=== PATIENT | female | born 1985 | race Caucasian/White ===

== ENCOUNTER 2016-05-10 18:54 | Emergency (ER) ==
[2016-05-10 18:59] VITALS: BP 125/79; TEMP 96.6; BMI 26.6
[2016-05-10 19:25] LABS: BASOPHILS # (AUTO) 0.1 K/uL (0-0.2); EOSINOPHILS % (AUTO) 0.2 % (0.0-7.0); HEMATOCRIT 40.3 % (37.0-47.0); HEMOGLOBIN 14.2 g/dl (12.0-16.0); IMMATURE GRANULOCYTE % (AUTO) 0.2 % (0.0-5.0); LYMPHOCYTES # (AUTO) 1.2 K/uL (0.60-3.4); LYMPHOCYTES % (AUTO) 21.9 (10.0-50.0); MEAN CORPUSCULAR HEMOGLOBIN 32.4 pg (27.0-31.0); MEAN CORPUSCULAR HGB CONC 35.2 (31.8-35.4); MONOCYTES # (AUTO) 0.3 K/uL (0.4-2.0); MONOCYTES % (AUTO) 6.1 (0-10); NEUTROPHILS # (AUTO) 3.7 K/ul (2.0-6.9); NEUTROPHILS % (AUTO) 70.6; PLATELET COUNT 352 10^3/uL (140-440); RED BLOOD COUNT 4.38 10^6/ul (4.20-5.40); WHITE BLOOD COUNT 5.25 K/ul (4.6-10.2)
[2016-05-10 19:28] LABS: BILIRUBIN,URINE Negative (NEGATIVE); KETONES,URINE 3+ (NEGATIVE); LEUKOCYTE ESTERASE ,URINE Negative (NEGATIVE); NITRITE,URINE Negative (NEGATIVE); PROTEIN,URINE Negative (NEGATIVE); URINE, BLOOD Negative (NEGATIVE)
[2016-05-10 19:33] LABS: ADD URINE MICROSCOPIC NO; URINE PREGNANCY INTERNAL QC INTERNAL QC VALID
[2016-05-10 19:46] LABS: ALBUMIN 4.4 g/dL (3.4-5.0); ALBUMIN/GLOBULIN RATIO 1.16; ANION GAP 17.5; BILIRUBIN,TOTAL 0.72 mg/dL (0.00-1.20); BUN/CREATININE RATIO 6.73; CALCIUM 9.6 mg/dL (8.2-10.2); CREATININE 1.04 mg/dL (0.60-1.30); POTASSIUM 3.5 mmol/L (3.5-5.10); TOTAL PROTEIN 8.2 g/dL (6.4-8.2)
[2016-05-10 19:46] LABS: FLU INTERNAL QC INTERNAL QC VALID; RAPID FLU A NEGATIVE (NEGATIVE); RAPID FLU B NEGATIVE (NEGATIVE)
--- NOTE | 2016-05-10 20:05 | ED.PDOC ---
General ED Provider: Dr. ALIYAH HELTON-ER Chief Complaint: Non-specific Complaint Stated Complaint: nichole got chills and shaky Time Seen by Physician: 18:55 Mode of Arrival: Walk-In Information Source: Patient Exam Limitations: No limitations Primary Care Provider: AVNI VARGAS Nursing and Triage Documentation Reviewed and Agree: Yes Miscellaneous Complaint Exam - Febrile Illness/Adult Complaint/Exam Onset/Duration: a few hours Symptoms Are: Still present Timing: Intermittent Episodes Lasting: Minutes Initial Severity: Mild Current Severity: Mild Aggravating: Reports: None Alleviating: Reports: None Associated Signs and Symptoms: Reports: Chills Pseudomonas Risk Factors: Reports: None Serious Bacterial Infection Risk Factors: Reports: None Current Antibiotic Use: No Related Surgical History: None Differential Diagnoses: Fever of Unknown Origin, Pneumonia, Pyelonephritis, Viremia Review of Systems - Review Of Systems Constitutional: Reports: Chills, Fever Eyes: Reports: No symptoms Ears, Nose, Mouth, Throat: Reports: No symptoms Respiratory: Reports: No symptoms Cardiac: Reports: No symptoms GI: Reports: No symptoms : Reports: No symptoms Musculoskeletal: Reports: No symptoms Skin: Reports: No symptoms Neurological: Reports: No symptoms Endocrine: Reports: No symptoms Hematologic/Lymphatic: Reports: No symptoms All Other Systems: Reviewed and Negative Past Medical History - Past Medical History Previously Healthy: Yes Endocrine: Reports: DM 1, Hypothyroid, Dyslipidemia Cardiovascular: Reports: None Respiratory: Reports: None Hematological: Reports: None Gastrointestinal: Reports: None Genitourinary: Reports: None Neuro/Psych: Reports: Migraine Musculoskeletal: Reports: Back Pain Cancer: Reports: None Last Menstrual Period: Apr Other Pertinent Past Medical History: BRAIN CYST- NO SURGERY"ITS TOO DANGEROUS( CT report-arachnoid cyst=benign) - Surgical History General Surgical History: Reports: Back Surgery, Other (BRAIN CYST- NO SURGERY "ITS TOO DANGEROUS(CT report-arachnoid cyst=benign)) - Family History Family History: Reports: Unknown - Social History Smoking Status: Current every day smoker, Light tobacco smoker Hx Substance Use: No Alcohol Screening: None Lives: With family Physical Exam - Physical Exam Appearance: Well-appearing, No pain distress, Well-nourished Eyes: ROXI ENT: Ears normal, Nose normal, Oropharynx normal Respiratory: Airway patent, Breath sounds clear, Breath sounds equal, Respirations nonlabored Cardiovascular: RRR, Pulses normal, No rub, No murmur GI/: Soft, Nontender, No masses, Bowel sounds normal, No Organomegaly Musculoskeletal: Normal strength, ROM intact, No edema, No calf tenderness Skin: Warm, Dry, Normal color Neurological: Sensation intact, Motor intact, Reflexes intact, Cranial nerves intact, Alert, Oriented Psychiatric: Affect appropriate, Mood appropriate Interpretation - Radiology Interpretation Radiology Interpretation By: ED Physician Radiology Results: Negative Exam Interpreted: CXR Re-Evaluation - Re-Evaluation Time of Re-Evaluation: 20:30 Status: Improved (laughing and joking--not ill appearing) Vital Signs Stable: Yes Pain Level: 0 Appearance: NAD Lungs: Clear Skin: Warm and Dry Neuro: Alert and Oriented X3 CV: RRR Critical Care Note - Critical Care Note Total Time (mins): 0 Course - Course Hematology/Chemistry: 05/10/16 19:15 05/10/16 19:15 Orders, Labs, Meds: Lab Review 05/10/16 05/10/16 19:15 19:20 WBC 5.25 RBC 4.38 Hgb 14.2 Hct 40.3 MCV 92.0 MCH 32.4 H MCHC 35.2 RDW Coeff of Kurt 12.7 Plt Count 352 Immature Gran % (Auto) 0.2 Neut % (Auto) 70.6 Lymph % (Auto) 21.9 Wheeler % (Auto) 6.1 Eos % (Auto) 0.2 Baso % (Auto) 1.0 Immature Gran # (Auto) 0.0 Neut # 3.7 Lymph # 1.2 Wheeler # 0.3 L Eos # 0.0 Baso # 0.1 Sodium 136 Potassium 3.5 Chloride 100 Carbon Dioxide 22 Anion Gap 17.5 BUN 7 Creatinine 1.04 Estimated GFR (MDRD) 63.00 BUN/Creatinine Ratio 6.73 Glucose 254 H Calcium 9.6 Total Bilirubin 0.72 AST 11 L ALT 12 Alkaline Phosphatase 60 Total Creatine Kinase 47 Troponin I 0.0100 Total Protein 8.2 Albumin 4.4 Globulin 3.8 Albumin/Globulin Ratio 1.16 Urine Color Yellow Urine Clarity Clear Urine pH 5.0 Ur Specific [place] 1.010 Urine Protein Negative Urine Glucose (UA) 2+ Urine Ketones 3+ Urine Blood Negative Urine Nitrite Negative Urine Bilirubin Negative Urine Urobilinogen 0.2 Ur Leukocyte Esterase Negative Urine Test Negative Influenza A (Rapid) Negative Influenza B (Rapid) Negative Orders Category Date Time Status EKG-(ED ONLY) Stat CARDIO 05/10/16 20:07 Completed ACCUCHECK (ED) [ED ACCUCHECK ASSESSMENT] .ONCE EMERGENCY 05/10/16 19:00 Active BLOOD CULTURE Stat LAB 05/10/16 19:15 Received CBC W/ AUTO DIFF Stat LAB 05/10/16 19:15 Completed COMPREHENSIVE METABOLIC PANEL Stat LAB 05/10/16 19:15 Completed CREATINE KINASE Stat LAB 05/10/16 19:15 Completed MOLECULAR GROUP A STREP Stat LAB 05/10/16 19:20 Results RAPID FLU A/B Stat LAB 05/10/16 19:20 Completed STREP SCREEN Stat LAB 05/10/16 19:20 Results TROPONIN I Stat LAB 05/10/16 19:15 Completed URINALYSIS C & S IF INDICATED Stat LAB 05/10/16 19:15 Completed URINE Stat LAB 05/10/16 19:15 Completed CXR [CHEST, 2 VIEWS PA & LAT] Stat RADS 05/10/16 19:03 Taken Vital Signs: Temp Pulse Resp BP Pulse Ox 05/10/16 18:55 96.6 F L 111 H 24 125/79 99 Departure - Departure Time of Disposition: 20:30 Disposition: HOME SELF-CARE Discharge Problem: Fatigue Qualifiers: Fatigue type: other Qualifier Code: (R53.83) Other fatigue Instructions: Weakness (ED) Condition: Good Pt referred to PMD for follow-up: Yes Additional Instructions: rest, fluids, tylenol for chills--rechekc in 48hrsd if not better Allergies/Adverse Reactions: Allergies amoxicillin [Amoxicillin] Adverse Reaction (Verified 04/02/16 21:07) amoxicillin trihydrate [From Augmentin] Adverse Reaction (Verified 04/02/16 21: 07) cyclobenzaprine [From Flexeril] Adverse Reaction (Verified 05/10/16 19:00) diazepam [From Valium] Adverse Reaction (Verified 05/10/16 19:00) Penicillins Adverse Reaction (Verified 04/02/16 21:07) potassium clavulanate [From Augmentin] Adverse Reaction (Verified 04/02/16 21:07 ) tramadol Adverse Reaction (Verified 05/10/16 19:00) Home Medications: Ambulatory Orders Insulin Glargine,Hum.rec.anlog [Lantus] 40 unit SQ DAILY 10/04/12 Insulin Lispro [Humalog] 1 unit SQ DIRECTED PRN 11/24/12 Levothyroxine Sodium [Synthroid] 88 mcg PO DAILY 06/11/13 Pravastatin Sodium [Pravachol] 40 mg PO BEDTIME 10/02/13 Disposition Discussed With: Patient
[2016-05-10 20:23] LABS: TROPONIN I 0.01 ng/ml (0.0000-0.4000)
--- NOTE | 2016-05-11 07:31 | DI ---
EXAM: PA and lateral views of the chest HISTORY: Chills COMPARISON: Chest x-ray 09/10/2015 FINDINGS: The cardiomediastinal silhouette is normal. There is no pneumothorax or pleural effusion . There is no consolidation, nodule or mass. The osseous structures are unremarkable. IMPRESSION: No acute cardiopulmonary process
== END 2016-05-10 20:34 | disposition home or self-care (01) ==
LOC: ED 18:54
DX: R53.83 Other fatigue (principal); R68.83 Chills (without fever); F17.210 Nicotine dependence, cigarettes, uncomplicated; Z79.899 Other long term (current) drug therapy; E10.9 Type 1 diabetes mellitus without complications; E03.9 Hypothyroidism, unspecified; E78.5 Hyperlipidemia, unspecified
CPT/HCPCS: 36415; 80053; 81001; 81025; 82550; 82962; 84484; 85025; 87040; 87651; 87804; 87880; 93005; 93010; 99283

== ENCOUNTER 2016-05-26 11:49 | Outpatient (CLI) ==
[2012-10-04 20:10] VITALS: BP 123/86; TEMP 98
[2016-05-26 12:31] LABS: CREATININE 1.21 mg/dL (0.60-1.30)
== END 2016-05-26 11:50 | disposition home or self-care (01) ==
LOC: LAB 11:49
PROVIDERS: ATTEND Physician Assistant
DX: Z01.818 Encounter for other preprocedural examination (principal)
CPT/HCPCS: 36415; 82565

== ENCOUNTER 2016-05-28 10:14 | Emergency (ER) ==
[2016-05-28 10:18] VITALS: BP 127/82; TEMP 98.6; BMI 22.9
--- NOTE | 2016-05-28 10:24 | ED.PDOC ---
General ED Provider: Dr. TEO MILLER JR Chief Complaint: Shoulder Pain/Injury Stated Complaint: PATIENT STATES THAT SHE IS HAVIN PAIN IN THE RIGHT SHOULDER. PATIENT STATES THAT AT MIDNIGHT SHE BEGAN TO EXPERIENCE PAIN IN THE RIGHT SHOULDER. PATIENT DOES NOT RECALL INJURY TO THE SHOULDER IN ANY WAY. PATIENT STATES THE HER RANGE OF MOTION IS LIMITED IN THE SHOULDER. [ End ]SINCE MIDNIGHT 98.6 80 18 98% 127/82 01/23 Time Seen by Physician: 10:22 Mode of Arrival: Walk-In Information Source: Patient Exam Limitations: No limitations Primary Care Provider: AVNI VARGAS Nursing and Triage Documentation Reviewed and Agree: No Review of Systems - Review Of Systems Constitutional: Reports: No symptoms Eyes: Reports: No symptoms Ears, Nose, Mouth, Throat: Reports: No symptoms Respiratory: Reports: No symptoms Cardiac: Reports: No symptoms GI: Reports: No symptoms : Reports: No symptoms Musculoskeletal: Reports: Joint pain (RIGHT SHOULDER NONFOCAL MOST PAINFUL MEDIAL TO SCAPULA TENDER OVER CLAVICLE AND HUMERAL HEAD APPEARS ANTERIORLY DISPLACED, BUT SHOULDERS ARE ABSOLUTELY SYMMETRIC ON EXAM- NO LEFT SIDED PAIN SHOULDER PAIN ONLY ON RIGHT- STATES HAS MRI SCHEDULED FOR THIS WEEK) Skin: Reports: No symptoms Neurological: Reports: Anxiety Endocrine: Reports: No symptoms Hematologic/Lymphatic: Reports: No symptoms All Other Systems: Other Past Medical History - Past Medical History Previously Healthy: Yes Endocrine: Reports: DM 1, Hypothyroid, Dyslipidemia Cardiovascular: Reports: None Respiratory: Reports: None Hematological: Reports: Anemia Gastrointestinal: Reports: None Genitourinary: Reports: None Neuro/Psych: Reports: Migraine, Anxiety, Depression, Bipolar Disorder, Schizophrenia, Other (PAIN MANAGEMENT) Musculoskeletal: Reports: Back Pain Cancer: Reports: None (BRAIN CYST, 3 BULGING DISCS IN BACK, SPINAL DETERIORATION , SCOLIOSIS, SCHIZ) Last Menstrual Period: 05/26/16 Other Pertinent Past Medical History: BRAIN CYST- NO SURGERY"ITS TOO DANGEROUS( CT report-arachnoid cyst=benign) - Surgical History General Surgical History: Reports: Orthopedic (COMPARTMENT SYNDROME SURGERY RIGHT FOREARM), Back Surgery (3 BULGING DISCS IN BACK, SPINAL DETERIORATION, SCOLIOSIS), Other - Family History Family History: Reports: Unknown - Social History Smoking Status: Current every day smoker, Light tobacco smoker Hx Substance Use: No Alcohol Screening: None Physical Exam - Physical Exam Appearance: Well-appearing Pain Distress: Moderate Eyes: ROXI, EOMI, Conjunctiva clear ENT: Ears normal, Nose normal, Oropharynx normal Neck: Supple Respiratory: Airway patent, Breath sounds clear, Breath sounds equal, Respirations nonlabored Cardiovascular: RRR, Pulses normal, No rub, No murmur GI/: Soft, Nontender, No masses, Bowel sounds normal, No Organomegaly Musculoskeletal: Normal strength, ROM intact, No edema, No calf tenderness ( NOTE RIGHT SHOULDER WIHTOUT PHYSICAL FINDINGS) Skin: Warm, Dry, Normal color Neurological: Sensation intact, Motor intact, Reflexes intact, Cranial nerves intact, Alert, Oriented Psychiatric: Anxious, Depressed Critical Care Note - Critical Care Note Total Time (mins): 0 Course - Course Orders, Labs, Meds: Orders Category Date Time Status Ketorolac Tromethamine [Toradol] MEDS 05/28/16 10:44 Discontinued 60 mg IM ONCE STA Medications Discontinued Medications Generic Name Dose Route Start Last Admin Trade Name Freq PRN Reason Stop Dose Admin Ketorolac Tromethamine 60 mg 05/28/16 10:44 05/28/16 10:53 Toradol IM 05/28/16 10:45 60 mg ONCE STA Administration Vital Signs: Temp Pulse Resp BP Pulse Ox 05/28/16 10:15 98.6 F 80 18 127/82 98 Departure - Departure Time of Disposition: 10:49 Disposition: HOME SELF-CARE Discharge Problem: Shoulder pain Instructions: Shoulder Pain (ED), Exercises for Shoulder Flexion and Extension (ED), Exercises for Shoulder Abduction and Adduction (ED) Condition: Good Pt referred to PMD for follow-up: Yes Additional Instructions: FOLLOW UP MRI SCHEDULED FOLLOW UP WITH PMD DISCUSS SHOULDER EXERCISES FOR FLEXIBILITY MAY USE TORADOL FOR PAIN Prescriptions: Ketorolac Tromethamine [Toradol] 10 mg PO QID PRN #20 tablet PRN Reason: PAIN Allergies/Adverse Reactions: Allergies amoxicillin [Amoxicillin] Adverse Reaction (Verified 05/28/16 10:19) amoxicillin trihydrate [From Augmentin] Adverse Reaction (Verified 05/28/16 10: 19) cyclobenzaprine [From Flexeril] Adverse Reaction (Verified 05/28/16 10:19) diazepam [From Valium] Adverse Reaction (Verified 05/28/16 10:19) Penicillins Adverse Reaction (Verified 05/28/16 10:19) potassium clavulanate [From Augmentin] Adverse Reaction (Verified 05/28/16 10:19 ) tramadol Adverse Reaction (Verified 05/28/16 10:19) Home Medications: Ambulatory Orders Insulin Glargine,Hum.rec.anlog [Lantus] 40 unit SQ DAILY 10/04/12 Insulin Lispro [Humalog] 1 unit SQ DIRECTED PRN 11/24/12 Levothyroxine Sodium [Synthroid] 88 mcg PO DAILY 06/11/13 Pravastatin Sodium [Pravachol] 40 mg PO BEDTIME 10/02/13 Ketorolac Tromethamine [Toradol] 10 mg PO QID PRN #20 tablet 05/28/16
[2016-05-28] MEDS ORDERED: TORADOL IM STA (10:44)
== END 2016-05-28 11:20 | disposition home or self-care (01) ==
LOC: ED 10:14
DX: M25.511 Pain in right shoulder (principal)
CPT/HCPCS: 96372; 99283

== ENCOUNTER 2016-06-01 07:01 | Outpatient (CLI) ==
[2012-10-04 20:10] VITALS: BP 123/86; TEMP 98
--- NOTE | 2016-06-01 10:07 | MRI ---
EXAM: MRI brain without and with IV contrast. DATE: 06/01/2016. HISTORY: Headaches. Cyst in the patient's brain. TECHNIQUE: Sagittal T1W and postcontrast, axial T2W, axial FLAIR, axial T1W pre and postcontrast, a xial DWI, coronal T1W postcontrast, and coronal T2W GRE sequences of the brain were obtained using 1 .2 Brionna magnet. CONTRAST: Omniscan - 10 ml IV. COMPARISON: CT head 06 Sep 2015 and 02/23/2013. MRI brain 09/22/2013. FINDINGS: The posterior midline posterior fossa CSF fluid collection appears unchanged from 2012. Lateral ventricles are upper normal size. Remaining ventricles, cisterns, and sulci are no rmal in size and configuration. No midline shift or herniation is apparent. No acute infarct, hemo rrhage or enhancing neoplasm is identified. No abnormal contrast enhancement is identified in the b rain, meninges or dura. The mora - white matter differentiation is normal. No migration or diverti culation abnormality is identified. The amygdala, hippocampus, and parahippocampal gyri are symmetr ic and normal bilaterally. The fornices and hypothalamus appear normal. The 7th/8th cranial nerve complexes, cerebellopontine angles, brainstem, and visible cervical spinal cord are normal. There i s no cerebellar tonsillar ectopia. The pituitary gland is normal in size and has normal signal. Co rpus callosum is normal in size and configuration. Flow voids are present in the major intracranial arteries and in the dural venous sinuses. No aneurysm, AVM or dural venous sinus thrombosis is brent arent. No orbit abnormality is identified. The mastoid air cells are unremarkable. There is no ac munira sinusitis. Right maxillary sinus retention cyst vs polyp (8.5 x 6 x 5 mm) is observed. Small ly mph nodes are present within the upper neck bilaterally. No neck mass or lymphadenopathy is detecte d. No calvarial neoplasm or acute fracture is evident. IMPRESSIONS: 1. No acute infarct, hemorrhage, enhancing neoplasm or hydrocephalus. 2. Posterior fossa CSF fluid collection is stable. DDX: Vijay cisterna magna vs arachnoid cyst. Scar th are benign entities, and do not require further imaging. 3. Right maxillary sinus chronic retention cyst vs polyp.
== END 2016-06-01 07:02 | disposition home or self-care (01) ==
LOC: RAD 07:01
PROVIDERS: ATTEND Physician Assistant
DX: R51 Headache (principal); H53.2 Diplopia; G93.0 Cerebral cysts

== ENCOUNTER 2016-06-05 13:57 | Outpatient (CLI) ==
[2012-10-04 20:10] VITALS: BP 123/86; TEMP 98
--- NOTE | 2016-06-05 16:28 | MRI ---
EXAM: MRI right shoulder without contrast COMPARISON: MRI right shoulder 12/12/2013. Right shoulder radiographs 01/05/2016. HISTORY: Right shoulder pain. TECHNIQUE: Multiplanar noncontrast MR images of the right shoulder were acquired using a 1.2 Brionna magnet. FINDINGS: There is mild to moderate supraspinatus, infraspinatus and subscapularis tendinosis. Min imal bursal surface fraying of the supraspinatus distally. No full-thickness rotator cuff tear or t endon retraction. No significant subacromial/subdeltoid effusion. Limited assessment glenoid labrum on this non arthrographic study with suspected anatomic variation (sublabral foramen) as previously noted. No paralabral cyst. The glenohumeral joint space is prese rved without an acute fracture or dislocation. Physiologic amount of fluid within the joint. The long head biceps is noted within the bicipital groove and is intact. Hypertrophic degenerative changes of the acromioclavicular joint with marginal osteophytes capsular hypertrophy with joint centered edema/cystic change which has increased in extent. No evidence of a n os acromiale or abnormal widening of the acromioclavicular joint space. No soft tissue mass ident ified. IMPRESSION: 1. Mild moderate rotator cuff tendinosis without a full-thickness rotator cuff tear. 2. Progressive hypertrophic degenerative changes of the acromioclavicular joint. 3. Suspected anatomic variation of the glenoid labrum (sublabral foramen) on this non arthrographic study. This is unchanged.
== END 2016-06-05 13:58 | disposition home or self-care (01) ==
LOC: RAD 13:57
PROVIDERS: ATTEND Physician Assistant
DX: M25.512 Pain in left shoulder (principal); M25.511 Pain in right shoulder

== ENCOUNTER 2016-06-15 20:45 | Emergency (ER) ==
[2016-06-15 20:45] VITALS: BMI 22.9
[2016-06-15 20:57] VITALS: BP 120/79; TEMP 98.8
--- NOTE | 2016-06-15 21:13 | ED.PDOC ---
General ED Provider: Dr. JAMESON BRAXTON Chief Complaint: Eye Problem Stated Complaint: Eyes merida and hurting, dry eyes Time Seen by Physician: 21:11 Mode of Arrival: Walk-In Information Source: Patient Primary Care Provider: AVNI VARGAS Nursing and Triage Documentation Reviewed and Agree: Yes EENT Complaint Exam - Eye Complaint/Exam Symptoms Are: Still present Timing: Constant Initial Severity: Mild Current Severity: Mild Location: Bilateral Character: Reports: Sharp Aggravating: Reports: None Alleviating: Reports: Eye drops Associated Signs and Symptoms: Denies: Photophobia, Clear drainage, Purulent drainage, Vision impairment, Fever, Swelling Eye Surgical History: Reports: None Penetrating Injury Risk Factors: None Globe Rupture Risk Factors: None Acute Glaucoma Risk Factors: None Optic Artery Occlusion Risk Factors: None Visual Field: Normal Extraocular Movement: Normal Orbit Findings: Normal Globe Findings: Intact Lid Findings: Normal Corneal Findings: Clear Fundi: Normal Differential Diagnoses: Conjunctivitis Review of Systems - Review Of Systems Constitutional: Reports: No symptoms Eyes: Reports: Foreign body sensation, Pain Ears, Nose, Mouth, Throat: Reports: No symptoms Respiratory: Reports: No symptoms Cardiac: Reports: No symptoms GI: Reports: No symptoms : Reports: No symptoms Musculoskeletal: Reports: No symptoms Skin: Reports: No symptoms Neurological: Reports: No symptoms Endocrine: Reports: No symptoms Hematologic/Lymphatic: Reports: No symptoms All Other Systems: Reviewed and Negative Past Medical History - Past Medical History Previously Healthy: Yes Endocrine: Reports: DM 1, Hypothyroid, Dyslipidemia Cardiovascular: Reports: None Respiratory: Reports: None Hematological: Reports: Anemia Gastrointestinal: Reports: None Genitourinary: Reports: None Neuro/Psych: Reports: Migraine, Anxiety, Depression, Bipolar Disorder, Schizophrenia, Other (PAIN MANAGEMENT) Musculoskeletal: Reports: Back Pain Cancer: Reports: None (BRAIN CYST, 3 BULGING DISCS IN BACK, SPINAL DETERIORATION , SCOLIOSIS, SCHIZ) Last Menstrual Period: MAY 24, 2016 Other Pertinent Past Medical History: BRAIN CYST- NO SURGERY"ITS TOO DANGEROUS( CT report-arachnoid cyst=benign) - Surgical History General Surgical History: Reports: Orthopedic (COMPARTMENT SYNDROME SURGERY RIGHT FOREARM), Back Surgery (3 BULGING DISCS IN BACK, SPINAL DETERIORATION, SCOLIOSIS), Other - Family History Family History: Reports: Unknown - Social History Smoking Status: Current every day smoker, Light tobacco smoker Hx Substance Use: No Alcohol Screening: None - Immunizations Tetanus Shot up to Date: (UNKNOWN) Physical Exam - Physical Exam Appearance: Well-appearing, No pain distress, Well-nourished Eyes: Conjunctiva inflammed ENT: Ears normal, Nose normal, Oropharynx normal Respiratory: Airway patent, Breath sounds clear, Breath sounds equal, Respirations nonlabored Cardiovascular: RRR, Pulses normal, No rub, No murmur GI/: Soft, Nontender, No masses, Bowel sounds normal, No Organomegaly Musculoskeletal: Normal strength, ROM intact, No edema, No calf tenderness Skin: Warm, Dry, Normal color Neurological: Sensation intact, Motor intact, Reflexes intact, Cranial nerves intact, Alert, Oriented Psychiatric: Affect appropriate, Mood appropriate Critical Care Note - Critical Care Note Total Time (mins): 0 Course - Course Vital Signs: Temp Pulse Resp BP Pulse Ox 06/15/16 20:46 98.8 F 87 20 120/79 100 Departure - Departure Time of Disposition: 21:17 Disposition: HOME SELF-CARE Discharge Problem: Conjunctivitis Qualifiers: Conjunctivitis type: acute Acute conjunctivitis type: bacterial Laterality: bilateral Qualifier Code: (H10.33) Unspecified acute conjunctivitis, bilateral Instructions: Conjunctivitis (ED) Condition: Stable Pt referred to PMD for follow-up: Yes (eye doctor) Additional Instructions: needs to have f/u with eye doctor. If not better come back Prescriptions: Tobramycin/Dexamethasone [Tobradex Eye Drops] 2.5 ml OP TID #1 bottle Allergies/Adverse Reactions: Allergies amoxicillin [Amoxicillin] Adverse Reaction (Verified 06/15/16 20:55) amoxicillin trihydrate [From Augmentin] Adverse Reaction (Verified 06/15/16 20: 55) cyclobenzaprine [From Flexeril] Adverse Reaction (Verified 06/15/16 20:55) diazepam [From Valium] Adverse Reaction (Verified 06/15/16 20:55) Penicillins Adverse Reaction (Verified 06/15/16 20:55) potassium clavulanate [From Augmentin] Adverse Reaction (Verified 06/15/16 20:55 ) tramadol Adverse Reaction (Verified 06/15/16 20:55) Home Medications: Ambulatory Orders Insulin Glargine,Hum.rec.anlog [Lantus] 40 unit SQ BID 10/04/12 Insulin Lispro [Humalog] 1 unit SQ DIRECTED PRN 11/24/12 Levothyroxine Sodium [Synthroid] 88 mcg PO DAILY 06/11/13 Pravastatin Sodium [Pravachol] 40 mg PO DAILY 10/02/13 Hydrocodone Bit/Acetaminophen [[place] 7.5-325] 1 tab PO BID 06/15/16 Tobramycin/Dexamethasone [Tobradex Eye Drops] 2.5 ml OP TID #1 bottle 06/15/16 Disposition Discussed With: Patient
== END 2016-06-15 21:35 | disposition home or self-care (01) ==
LOC: ED 20:45
DX: H10.33 Unspecified acute conjunctivitis, bilateral (principal); F17.210 Nicotine dependence, cigarettes, uncomplicated
CPT/HCPCS: 99282

== ENCOUNTER 2016-08-08 12:17 | Outpatient (CLI) ==
[2012-10-04 20:10] VITALS: BP 123/86; TEMP 98
--- NOTE | 2016-08-08 12:38 | DI ---
EXAM: Three views of the right shoulder. History: Right shoulder pain. Comparison: Right shoulder radiograph 01/05/2016 Findings: No acute fracture or dislocation. No abnormal calcifications or radiopaque foreign tanvir s. Joint spaces are preserved. Impression: Unremarkable exam.
== END 2016-08-08 12:18 | disposition home or self-care (01) ==
LOC: RAD 12:17
PROVIDERS: ATTEND Physician Assistant
DX: M25.511 Pain in right shoulder (principal)

== ENCOUNTER 2016-08-28 14:04 | Emergency (ER) ==
[2016-08-28 14:31] VITALS: BP 135/84; TEMP 98.3; BMI 22.4
--- NOTE | 2016-08-28 16:23 | ED.PDOC ---
General ED Provider: Dr. TEO MILLER JR Chief Complaint: Vaginal Bleeding Stated Complaint: HEAVY VAGINAL BLEEDING FOR THE PAST SIX DAYS WITH ABD PAIN. [ End ]98.3 105 20 98% 135/84 01/23 Time Seen by Physician: 16:25 Mode of Arrival: Walk-In Information Source: Patient Exam Limitations: No limitations Primary Care Provider: AVNI VAGRAS Nursing and Triage Documentation Reviewed and Agree: No Complaint Exam - UTI Female Complaint/Exam : 0 Para: 0 Hx Total # of Abortions (Spontaneous & Elective): 0 Review of Systems - Review Of Systems Constitutional: Reports: Malaise Eyes: Reports: No symptoms Ears, Nose, Mouth, Throat: Reports: No symptoms Respiratory: Reports: No symptoms Cardiac: Reports: No symptoms GI: Reports: Abdominal pain (abd pain periumbilical) : Reports: Discharge (vaginal discharge ) Musculoskeletal: Reports: No symptoms Skin: Reports: No symptoms Neurological: Reports: No symptoms Endocrine: Reports: No symptoms Hematologic/Lymphatic: Reports: No symptoms All Other Systems: Other Past Medical History - Past Medical History Previously Healthy: Yes Endocrine: Reports: DM 1, Hypothyroid, Dyslipidemia Cardiovascular: Reports: None Respiratory: Reports: None Hematological: Reports: Anemia Gastrointestinal: Reports: None Genitourinary: Reports: None Neuro/Psych: Reports: Migraine, Anxiety, Depression, Bipolar Disorder, Schizophrenia, Other (PAIN MANAGEMENT) Musculoskeletal: Reports: Back Pain (SCOLIOSIS) Cancer: Reports: None (BRAIN CYST, 3 BULGING DISCS IN BACK, SPINAL DETERIORATION , SCOLIOSIS, SCHIZ) Last Menstrual Period: CURRENT Other Pertinent Past Medical History: BRAIN CYST- NO SURGERY"ITS TOO DANGEROUS( CT report-arachnoid cyst=benign) - Surgical History General Surgical History: Reports: Orthopedic (COMPARTMENT SYNDROME SURGERY RIGHT FOREARM), Back Surgery (3 BULGING DISCS IN BACK, SPINAL DETERIORATION, SCOLIOSIS), Other - Family History Family History: Reports: Unknown - Social History Smoking Status: Current every day smoker, Light tobacco smoker Hx Substance Use: No Alcohol Screening: None - Immunizations Tetanus Shot up to Date: Yes Physical Exam - Physical Exam Appearance: Well-appearing, Thin Pain Distress: Moderate Eyes: ROXI, EOMI, Conjunctiva clear ENT: Ears normal, Nose normal, Oropharynx normal Neck: Supple Respiratory: Airway patent, Breath sounds clear, Breath sounds equal, Respirations nonlabored Cardiovascular: RRR, Pulses normal, No rub, No murmur GI/: Soft, Bowel sounds normal, Tender (nonfocal;) Musculoskeletal: Normal strength, ROM intact, No edema, No calf tenderness Skin: Warm, Dry, Normal color Neurological: Sensation intact, Motor intact, Reflexes intact, Cranial nerves intact, Alert, Oriented Psychiatric: Anxious Critical Care Note - Critical Care Note Total Time (mins): 0 Course - Course Hematology/Chemistry: 08/28/16 16:30 08/28/16 16:30 Orders, Labs, Meds: Lab Review 08/28/16 08/28/16 16:30 16:35 WBC 5.46 RBC 4.11 L Hgb 13.4 Hct 38.7 MCV 94.2 MCH 32.6 H MCHC 34.6 RDW Coeff of Kurt 12.4 Plt Count 314 Immature Gran % (Auto) 0.2 Neut % (Auto) 69.2 Lymph % (Auto) 22.2 [place] % (Auto) 6.8 Eos % (Auto) 0.9 Baso % (Auto) 0.7 Immature Gran # (Auto) 0.0 Neut # 3.8 Lymph # 1.2 [place] # 0.4 Eos # 0.1 Baso # 0.0 Sodium 135 L Potassium 4.4 Chloride 102 Carbon Dioxide 26 Anion Gap 11.4 BUN 8 Creatinine 1.18 Estimated GFR (MDRD) 55.00 BUN/Creatinine Ratio 6.77 Glucose 364 H Calcium 9.0 Total Bilirubin 0.36 AST 14 L ALT 16 Alkaline Phosphatase 52 Total Protein 7.1 Albumin 3.6 Globulin 3.5 Albumin/Globulin Ratio 1.03 Urine Color Yellow Urine Clarity Clear Urine pH 7.0 Ur Specific [place] 1.010 Urine Protein Negative Urine Glucose (UA) 2+ Urine Ketones 1+ Urine Blood Trace-intact Urine Nitrite Negative Urine Bilirubin Negative Urine Urobilinogen 0.2 Ur Leukocyte Esterase Negative Urine Microscopic RBC 0-2 Ur Squamous Epith Cells Not present Urine Test Negative Orders Category Date Time Status CBC W/ AUTO DIFF Stat LAB 08/28/16 16:30 Completed COMPREHENSIVE METABOLIC PANEL Stat LAB 08/28/16 16:30 Completed TEST URINE [URINE ] Stat LAB 08/28/16 16:35 Completed UA [URINALYSIS C & S IF INDICATED] Stat LAB 08/28/16 16:35 Completed Vital Signs: Temp Pulse Resp BP Pulse Ox 08/28/16 14:04 98.3 F 105 H 20 135/84 98 Departure - Departure Time of Disposition: 17:53 Disposition: HOME SELF-CARE Discharge Problem: Bleeding from vagina Instructions: Dysmenorrhea (ED), Menorrhagia (ED) Condition: Good Pt referred to PMD for follow-up: Yes Additional Instructions: bleeding will eventually cause anemia anemia is not present today blood sugar is too high- need to follow diabetic diet premarin and provera for bleeding follow up with OBGYN- discuss referral with PMD Prescriptions: Estrogens, Conjugated [Premarin] 0.625 mg PO DAILY #30 tablet Medroxyprogesterone Acetate [Provera] 5 mg PO DAILY #7 tablet Allergies/Adverse Reactions: Allergies amoxicillin [Amoxicillin] Adverse Reaction (Verified 06/15/16 20:55) amoxicillin trihydrate [From Augmentin] Adverse Reaction (Verified 06/15/16 20: 55) cyclobenzaprine [From Flexeril] Adverse Reaction (Verified 06/15/16 20:55) diazepam [From Valium] Adverse Reaction (Verified 06/15/16 20:55) Penicillins Adverse Reaction (Verified 06/15/16 20:55) potassium clavulanate [From Augmentin] Adverse Reaction (Verified 06/15/16 20:55 ) tramadol Adverse Reaction (Verified 06/15/16 20:55) Home Medications: Ambulatory Orders Insulin Glargine,Hum.rec.anlog [Lantus] 40 unit SQ BID 10/04/12 Insulin Lispro [Humalog] 1 unit SQ DIRECTED PRN 11/24/12 Levothyroxine Sodium [Synthroid] 88 mcg PO DAILY 06/11/13 Hydrocodone Bit/Acetaminophen [[place] 7.5-325] 1 tab PO BID 06/15/16 Bupropion HCl [Wellbutrin Sr] 150 mg PO BID #60 07/27/16 Estrogens, Conjugated [Premarin] 0.625 mg PO DAILY #30 tablet 08/28/16 Medroxyprogesterone Acetate [Provera] 5 mg PO DAILY #7 tablet 08/28/16
[2016-08-28 16:43] LABS: BASOPHILS % (AUTO) 0.7 % (0.0-3.0); EOSINOPHILS # (AUTO) 0.1 K/ul (0.0-0.7); EOSINOPHILS % (AUTO) 0.9 % (0.0-7.0); HEMATOCRIT 38.7 % (37.0-47.0); HEMOGLOBIN 13.4 g/dl (12.0-16.0); IMMATURE GRANULOCYTE % (AUTO) 0.2 % (0.0-5.0); LYMPHOCYTES # (AUTO) 1.2 K/uL (0.60-3.4); LYMPHOCYTES % (AUTO) 22.2 (10.0-50.0); MEAN CORPUSCULAR HEMOGLOBIN 32.6 pg (27.0-31.0); MEAN CORPUSCULAR HGB CONC 34.6 (31.8-35.4); MEAN CORPUSCULAR VOLUME 94.2 fl (81.0-99.0); MONOCYTES # (AUTO) 0.4 K/uL (0.4-2.0); MONOCYTES % (AUTO) 6.8 (0-10); NEUTROPHILS # (AUTO) 3.8 K/ul (2.0-6.9); NEUTROPHILS % (AUTO) 69.2; PLATELET COUNT 314 10^3/uL (140-440); RED BLOOD COUNT 4.11 10^6/ul (4.20-5.40); WHITE BLOOD COUNT 5.46 K/ul (4.6-10.2)
[2016-08-28 16:52] LABS: BILIRUBIN,URINE Negative (NEGATIVE); KETONES,URINE 1+ (NEGATIVE); LEUKOCYTE ESTERASE ,URINE Negative (NEGATIVE); NITRITE,URINE Negative (NEGATIVE); PROTEIN,URINE Negative (NEGATIVE); URINE, BLOOD Trace-intact (NEGATIVE)
[2016-08-28 16:58] LABS: ALBUMIN 3.6 g/dL (3.4-5.0); ALBUMIN/GLOBULIN RATIO 1.03; ANION GAP 11.4; BILIRUBIN,TOTAL 0.36 mg/dL (0.00-1.20); BUN/CREATININE RATIO 6.77; CREATININE 1.18 mg/dL (0.60-1.30); POTASSIUM 4.4 mmol/L (3.5-5.10); TOTAL PROTEIN 7.1 g/dL (6.4-8.2)
[2016-08-28 17:00] LABS: URINE PREGNANCY INTERNAL QC INTERNAL QC VALID
[2016-08-28 17:01] LABS: ADD URINE MICROSCOPIC YES
== END 2016-08-28 18:15 | disposition home or self-care (01) ==
LOC: ED 14:04
DX: N92.0 Excessive and frequent menstruation with regular cycle (principal); N94.6 Dysmenorrhea, unspecified; E10.65 Type 1 diabetes mellitus with hyperglycemia; E03.9 Hypothyroidism, unspecified; E78.5 Hyperlipidemia, unspecified; F17.210 Nicotine dependence, cigarettes, uncomplicated; Z79.899 Other long term (current) drug therapy
CPT/HCPCS: 36415; 80053; 81001; 81025; 85025; 99283

== ENCOUNTER 2016-09-18 19:18 | Emergency (ER) ==
[2016-09-18 19:23] VITALS: BP 112/73; TEMP 97.9; BMI 24.1
--- NOTE | 2016-09-18 19:47 | ED.PDOC ---
General ED Provider: Dr. ALIYAH HELTON-ER Chief Complaint: Extremity Pain/Injury Stated Complaint: my arm is numb and tingling where i had surgery before ( decompression for compartment syndrome) Time Seen by Physician: 19:25 Mode of Arrival: Walk-In Information Source: Patient Exam Limitations: No limitations Primary Care Provider: AVNI VARGAS Nursing and Triage Documentation Reviewed and Agree: Yes Neurological Complaint Exam - Neurological Deficit Complaint/Exam Patient Complains of: Reports: Abnormal sensation Symptom Onset Unknown: Yes Onset: Gradual Symptoms Are: Still present Worse Since: past 4 days Timing: Constant Initial Severity: Mild Current Severity: Mild Location: Reports: RUE Character: Reports: Numbness, Tingling, Paresthesia. Denies: Motor weakness, Paralysis, Sensory loss, Impaired speech Aggravating: Reports: None Alleviating: Reports: None Associated Signs and Symptoms: Denies: Confusion, Agitation, Responsiveness, LOC , Headache, Fever, Nuchal rigidity, Recent trauma, Remote trauma, Recent illness CVA Risk Factors: Reports: Diabetes SDH Risk Factors: Denies: None, Male, Seizures, Elderly, Recent trauma, Anticoagulant use, Coagulopathy Related Surgical History: Denies: None, Craniotomy, Tumor, Carotid Endarterectomy, Pacemaker, Artificial valve Carotid Bruit Present: No Glascow Coma Scale (see protocol): 15 Meningeal Signs Positive: No Focal Weakness: Present: None Focal Sensory Loss: Present: None Gait: Normal Nystagmus Present: No Gag Reflex Present: Yes [id number]: Normal Findings Romberg Test Positive: No Babinski Sign: Negative Right, Negative Left Heel to Toe Normal: Yes Signs of Trauma: No Differential Diagnoses: Other Review of Systems - Review Of Systems Constitutional: Reports: No symptoms Eyes: Reports: No symptoms Ears, Nose, Mouth, Throat: Reports: No symptoms Respiratory: Reports: No symptoms Cardiac: Reports: No symptoms GI: Reports: No symptoms : Reports: No symptoms Musculoskeletal: Reports: No symptoms Skin: Reports: No symptoms Neurological: Reports: Numbness, Tingling (at the previous op-site right forearm ) Endocrine: Reports: No symptoms Hematologic/Lymphatic: Reports: No symptoms All Other Systems: Reviewed and Negative Past Medical History - Past Medical History Previously Healthy: Yes Endocrine: Reports: DM 1, Hypothyroid, Dyslipidemia Cardiovascular: Reports: None Respiratory: Reports: None Hematological: Reports: Anemia Gastrointestinal: Reports: None Genitourinary: Reports: None Neuro/Psych: Reports: Migraine, Anxiety, Depression, Bipolar Disorder, Schizophrenia, Other (PAIN MANAGEMENT) Musculoskeletal: Reports: Back Pain (SCOLIOSIS) Cancer: Reports: None (BRAIN CYST, 3 BULGING DISCS IN BACK, SPINAL DETERIORATION , SCOLIOSIS, SCHIZ) Last Menstrual Period: 08/29/16 Other Pertinent Past Medical History: BRAIN CYST- NO SURGERY"ITS TOO DANGEROUS( CT report-arachnoid cyst=benign) - Surgical History General Surgical History: Reports: Orthopedic (COMPARTMENT SYNDROME SURGERY RIGHT FOREARM), Back Surgery (3 BULGING DISCS IN BACK, SPINAL DETERIORATION, SCOLIOSIS), Other - Family History Family History: Reports: Unknown - Social History Smoking Status: Current every day smoker, Light tobacco smoker Hx Substance Use: No Alcohol Screening: None Lives: With family - Immunizations Tetanus Shot up to Date: Yes Physical Exam - Physical Exam Appearance: Well-appearing, No pain distress, Well-nourished Pain Distress: Mild Eyes: ROXI, EOMI, Conjunctiva clear ENT: Ears normal, Nose normal, Oropharynx normal Neck: Supple Respiratory: Airway patent, Breath sounds clear, Breath sounds equal, Respirations nonlabored Cardiovascular: RRR, Pulses normal, No rub, No murmur GI/: Soft, Nontender, No masses, Bowel sounds normal, No Organomegaly Musculoskeletal: Normal strength, ROM intact, No edema, No calf tenderness Skin: Warm, Dry, Normal color Neurological: Alert, Oriented Psychiatric: Affect appropriate, Mood appropriate Critical Care Note - Critical Care Note Total Time (mins): 0 Course - Course Orders, Labs, Meds: radha appears to have some sore of neuropathic pain around the previous surgical site--where she had compartment syndrome decompression--sensation is somewhat diminished --she has good equal pulses and no swelling--clinically there is no dvt or arterial insufficiency--this appears to be neuropathic in natures Vital Signs: Temp Pulse Resp BP Pulse Ox 09/18/16 19:19 97.9 F 106 H 16 112/73 98 Departure - Departure Time of Disposition: 19:50 Disposition: HOME SELF-CARE Discharge Problem: Neuropathic pain syndrome (non-herpetic) Instructions: Cubital Tunnel Syndrome (ED) Condition: Good Pt referred to PMD for follow-up: Yes Additional Instructions: neurontin 100mg tid for pain #30--f/u with pcp--consider ncv and arterial studies if pain worsens Allergies/Adverse Reactions: Allergies amoxicillin [Amoxicillin] Adverse Reaction (Verified 09/18/16 19:24) amoxicillin trihydrate [From Augmentin] Adverse Reaction (Verified 09/18/16 19: 24) cyclobenzaprine [From Flexeril] Adverse Reaction (Verified 09/18/16 19:24) diazepam [From Valium] Adverse Reaction (Verified 09/18/16 19:24) Penicillins Adverse Reaction (Verified 09/18/16 19:24) potassium clavulanate [From Augmentin] Adverse Reaction (Verified 09/18/16 19:24 ) tramadol Adverse Reaction (Verified 09/18/16 19:24) Home Medications: Ambulatory Orders Insulin Glargine,Hum.rec.anlog [Lantus] 40 unit SQ BID 10/04/12 Insulin Lispro [Humalog] 1 unit SQ DIRECTED PRN 11/24/12 Levothyroxine Sodium [Synthroid] 88 mcg PO DAILY 06/11/13 Hydrocodone Bit/Acetaminophen [[place] 7.5-325] 1 tab PO BID 06/15/16 Medroxyprogesterone Acetate [Provera] 5 mg PO DAILY #7 tablet 08/28/16 Disposition Discussed With: Patient
== END 2016-09-18 20:04 | disposition home or self-care (01) ==
LOC: ED 19:18
DX: G56.21 Lesion of ulnar nerve, right upper limb (principal); Z98.890 Other specified postprocedural states; F17.210 Nicotine dependence, cigarettes, uncomplicated; Z79.899 Other long term (current) drug therapy
CPT/HCPCS: 99284

== ENCOUNTER 2016-10-03 16:35 | Outpatient (CLI) ==
[2012-10-04 20:10] VITALS: TEMP 98
== END 2016-10-03 16:36 | disposition home or self-care (01) ==
LOC: CAR 16:35
PROVIDERS: ATTEND Physician Assistant
DX: R53.83 Other fatigue (principal); G47.00 Insomnia, unspecified; E11.9 Type 2 diabetes mellitus without complications

== ENCOUNTER 2016-10-11 16:02 | Outpatient (CLI) ==
[2012-10-04 20:10] VITALS: TEMP 98
[2016-10-11 16:30] LABS: BASOPHILS # (AUTO) 0.1 K/uL (0-0.2); BASOPHILS % (AUTO) 0.8 % (0.0-3.0); EOSINOPHILS % (AUTO) 0.3 % (0.0-7.0); HEMATOCRIT 39.7 % (37.0-47.0); HEMOGLOBIN 13.3 g/dl (12.0-16.0); IMMATURE GRANULOCYTE % (AUTO) 0.3 % (0.0-5.0); LYMPHOCYTES # (AUTO) 1.5 K/uL (0.60-3.4); LYMPHOCYTES % (AUTO) 25.3 (10.0-50.0); MEAN CORPUSCULAR HEMOGLOBIN 32.2 pg (27.0-31.0); MEAN CORPUSCULAR HGB CONC 33.5 (31.8-35.4); MEAN CORPUSCULAR VOLUME 96.1 fl (81.0-99.0); MONOCYTES # (AUTO) 0.4 K/uL (0.4-2.0); MONOCYTES % (AUTO) 5.9 (0-10); NEUTROPHILS % (AUTO) 67.4; PLATELET COUNT 468 10^3/uL (140-440); RED BLOOD COUNT 4.13 10^6/ul (4.20-5.40); WHITE BLOOD COUNT 5.98 K/ul (4.6-10.2)
[2016-10-11 17:24] LABS: FERRITIN 26.62 ng/mL (4.63-204.00); FOLATE 9.9 ng/mL (3.1-20.5)
== END 2016-10-11 16:03 | disposition home or self-care (01) ==
LOC: LAB 16:02
PROVIDERS: ATTEND Physician Assistant
DX: D64.9 Anemia, unspecified (principal)
CPT/HCPCS: 36415; 82607; 82728; 82746; 83540; 85025

== ENCOUNTER 2016-10-16 14:04 | Outpatient (CLI) ==
[2012-10-04 20:10] VITALS: TEMP 98
[2016-10-16 14:30] LABS: OCCULT BLOOD INTERNAL QC 1 INTERNAL QC VALID; OCCULT BLOOD INTERNAL QC 2 INTERNAL QC VALID; OCCULT BLOOD SAMPLE 1 NEGATIVE (NEGATIVE); OCCULT BLOOD SAMPLE 2 NEGATIVE (NEGATIVE)
--- NOTE | 2016-10-16 15:46 | MRI ---
EXAM: MRI left shoulder without contrast. HISTORY: Left shoulder pain. No known injury.. TECHNIQUE: Using a local coil on a high field strength magnet multiplanar multisequence MRI was per formed left shoulder without intravenous or intra-articular gadolinium contrast. COMPARISON: Four view plain film examination left shoulder 11/24/2013. FINDINGS: A Type IV acromion. Coracoacromial ligament/arch intact with some thickening. Mild left acromioclavicular joint arthrosis. Deltoid musculature normal signal intensity. No appreciable fr ee fluid subacromial/subdeltoid bursa. Muscle bulk of the rotator cuff shows no acute muscle strain or overt atrophy. Mild/moderate supras pinatus tendinosis over the insertion and critical zone. This involves more posterior insertional i nfraspinatus tendon as well. Posterior intact teres minor tendon fibers. Anterior intact subscapul yoli tendon fibers. The long head of the biceps tendon shows intact fibers located in expected posi tion within the bicipital groove . Intra-articular biceps tendinosis. Left humeral head within normal limit in morphology and seated. No left glenohumeral joint centered subchondral bone marrow edema or bone erosions. Physiologic amount fluid left glenohumeral joint. Left glenoid labrum grossly intact on this non-arthrographic examination.. IMPRESSION: Type IV acromion. Mild left acromioclavicular joint arthrosis. Mild/moderate supraspinatus tendinosis with some involvement more posterior insertional infraspinatu s tendon as well. No full-thickness rotator cuff tear identified. No appreciable free fluid subacr omial/subdeltoid bursa. Intra-articular long head biceps tendinosis.
[2016-10-16 18:51] LABS: OCCULT BLOOD INTERNAL QC 3 INTERNAL QC VALID; OCCULT BLOOD SAMPLE 3 NO SPECIMEN RECEIVED (NEGATIVE)
== END 2016-10-16 14:05 | disposition home or self-care (01) ==
LOC: RAD 14:04
PROVIDERS: ATTEND Physician Assistant
DX: M25.512 Pain in left shoulder (principal); M25.511 Pain in right shoulder
CPT/HCPCS: 82272

== ENCOUNTER 2016-10-30 14:08 | Emergency (ER) ==
[2016-10-30 14:12] VITALS: BP 109/75; TEMP 98.5; BMI 21.6
[2016-10-30] MEDS ORDERED: SODIUM CHLORIDE 1,000 ML IV STA (14:30)
[2016-10-30] MEDS ORDERED: ZOFRAN 4 MG/2 ML IVP STA (14:31)
--- NOTE | 2016-10-30 14:31 | ED.PDOC ---
General ED Provider: Dr. URSULA OLVERA Chief Complaint: Shortness of Air Stated Complaint: Hurts to breathe, headache; started yesterday Time Seen by Physician: 14:20 Mode of Arrival: Walk-In Information Source: Patient Exam Limitations: No limitations Primary Care Provider: AVNI VARGAS Nursing and Triage Documentation Reviewed and Agree: Yes Review of Systems - Review Of Systems Constitutional: Reports: Malaise, Weakness Eyes: Reports: No symptoms Respiratory: Reports: Short of air GI: Denies: Abdominal pain, Diarrhea, Nausea : Denies: Dysuria, Pain Neurological: Reports: Anxiety (history of anxiety) All Other Systems: Reviewed and Negative Past Medical History - Past Medical History Previously Healthy: Yes Endocrine: Reports: DM 1, Hypothyroid, Dyslipidemia Cardiovascular: Reports: None Respiratory: Reports: None Hematological: Reports: Anemia Gastrointestinal: Reports: None Genitourinary: Reports: None Neuro/Psych: Reports: Migraine, Anxiety, Depression, Bipolar Disorder, Schizophrenia, Other (PAIN MANAGEMENT) Musculoskeletal: Reports: Back Pain (SCOLIOSIS) Cancer: Reports: None (BRAIN CYST, 3 BULGING DISCS IN BACK, SPINAL DETERIORATION , SCOLIOSIS, SCHIZ) Last Menstrual Period: now Other Pertinent Past Medical History: BRAIN CYST- NO SURGERY"ITS TOO DANGEROUS( CT report-arachnoid cyst=benign) - Surgical History General Surgical History: Reports: Orthopedic (COMPARTMENT SYNDROME SURGERY RIGHT FOREARM), Back Surgery (3 BULGING DISCS IN BACK, SPINAL DETERIORATION, SCOLIOSIS), Other - Family History Family History: Reports: Unknown - Social History Smoking Status: Current every day smoker, Light tobacco smoker Hx Substance Use: No Alcohol Screening: None Physical Exam - Physical Exam Appearance: Ill-appearing Ill-appearing: Mild Pain Distress: Mild Eyes: ROXI, EOMI, Conjunctiva clear ENT: Nose normal, Oropharynx normal, Dry mucosa Neck: Supple Respiratory: Airway patent, Breath sounds clear, Breath sounds equal, Respirations nonlabored (hyperventilating) Skin: Warm, Dry, Normal color Neurological: Sensation intact, Motor intact Psychiatric: Affect appropriate (baseline for patient), Mood appropriate Interpretation - Radiology Interpretation Radiology Interpretation By: Radiologist Radiology Results: No acute changes Exam Interpreted: Portable CXR Re-Evaluation - Re-Evaluation Time of Re-Evaluation: 15:55 Status: Unchanged Appearance: NAD Neuro: Other (Became angry with her father in room because he said her apetite was not good; very agitated) Critical Care Note - Critical Care Note Total Time (mins): 20 Course - Course Hematology/Chemistry: 10/30/16 14:35 10/30/16 14:35 Orders, Labs, Meds: Lab Review 10/30/16 14:35 WBC 6.55 RBC 3.95 L Hgb 13.0 Hct 37.2 MCV 94.2 MCH 32.9 H MCHC 34.9 RDW Coeff of Kurt 12.6 Plt Count 362 Immature Gran % (Auto) 0.3 Neut % (Auto) 68.4 Lymph % (Auto) 24.4 [place] % (Auto) 5.0 Eos % (Auto) 1.1 Baso % (Auto) 0.8 Immature Gran # (Auto) 0.0 Neut # 4.5 Lymph # 1.6 [place] # 0.3 L Eos # 0.1 Baso # 0.1 D-Dimer (Manual) 259.32 Sodium 135 L Potassium 3.6 Chloride 101 Carbon Dioxide 20 L Anion Gap 17.6 BUN 11 Creatinine 1.28 Estimated GFR (MDRD) 50.00 BUN/Creatinine Ratio 8.59 Glucose 365 H Calcium 9.0 Total Bilirubin 0.44 AST 9 L ALT 8 L Alkaline Phosphatase 61 Total Protein 7.3 Albumin 3.8 Globulin 3.5 Albumin/Globulin Ratio 1.09 Orders Category Date Time Status CBC W/ AUTO DIFF Stat LAB 10/30/16 14:35 Completed COMPREHENSIVE METABOLIC PANEL Stat LAB 10/30/16 14:35 Completed D-DIMER Stat LAB 10/30/16 14:35 Completed Ondansetron HCl/Pf [Zofran 4 mg/2 ml] MEDS 10/30/16 14:31 Discontinued 4 mg IVP ONCE STA Sodium Chloride 0.9% [Sodium Chloride] 1,000 ml MEDS 10/30/16 14:30 Discontinued IV BOLUS CHEST, 1V AP ONLY Stat RADS 10/30/16 14:29 Completed Medications Discontinued Medications Generic Name Dose Route Start Last Admin Trade Name Freq PRN Reason Stop Dose Admin Sodium Chloride 1,000 mls @ 1,000 mls/hr 10/30/16 14:30 10/30/16 14:45 Sodium Chloride IV 10/30/16 15:29 Not Given BOLUS STA Ondansetron HCl 4 mg 10/30/16 14:31 10/30/16 14:45 Zofran 4 Mg/2 Ml IVP 10/30/16 14:32 Not Given ONCE STA Vital Signs: Temp Pulse Resp BP Pulse Ox 10/30/16 14:08 98.5 F 111 H 36 H 109/75 98 Departure - Departure Time of Disposition: 16:31 Disposition: HOME SELF-CARE Discharge Problem: Anxiety Instructions: Anxiety (ED) Condition: Stable Pt referred to PMD for follow-up: Yes (Call for appointment) Additional Instructions: Follow up with primary care; return to ER if further concerns Allergies/Adverse Reactions: Allergies amoxicillin [Amoxicillin] Adverse Reaction (Verified 10/30/16 14:13) amoxicillin trihydrate [From Augmentin] Adverse Reaction (Verified 10/30/16 14: 13) cyclobenzaprine [From Flexeril] Adverse Reaction (Verified 10/30/16 14:13) diazepam [From Valium] Adverse Reaction (Verified 10/30/16 14:13) Penicillins Adverse Reaction (Verified 10/30/16 14:13) potassium clavulanate [From Augmentin] Adverse Reaction (Verified 10/30/16 14:13 ) tramadol Adverse Reaction (Verified 10/30/16 14:13) Home Medications: Ambulatory Orders Insulin Glargine,Hum.rec.anlog [Lantus] 40 unit SQ BID 10/04/12 Insulin Lispro [Humalog] 1 unit SQ DIRECTED PRN 11/24/12 Levothyroxine Sodium [Synthroid] 88 mcg PO DAILY 06/11/13 Hydrocodone Bit/Acetaminophen [[place] 7.5-325] 1 tab PO BID 06/15/16
[2016-10-30 14:41] LABS: BASOPHILS # (AUTO) 0.1 K/uL (0-0.2); BASOPHILS % (AUTO) 0.8 % (0.0-3.0); EOSINOPHILS # (AUTO) 0.1 K/ul (0.0-0.7); EOSINOPHILS % (AUTO) 1.1 % (0.0-7.0); HEMATOCRIT 37.2 % (37.0-47.0); IMMATURE GRANULOCYTE % (AUTO) 0.3 % (0.0-5.0); LYMPHOCYTES # (AUTO) 1.6 K/uL (0.60-3.4); LYMPHOCYTES % (AUTO) 24.4 (10.0-50.0); MEAN CORPUSCULAR HEMOGLOBIN 32.9 pg (27.0-31.0); MEAN CORPUSCULAR HGB CONC 34.9 (31.8-35.4); MEAN CORPUSCULAR VOLUME 94.2 fl (81.0-99.0); MONOCYTES # (AUTO) 0.3 K/uL (0.4-2.0); NEUTROPHILS # (AUTO) 4.5 K/ul (2.0-6.9); NEUTROPHILS % (AUTO) 68.4; PLATELET COUNT 362 10^3/uL (140-440); RED BLOOD COUNT 3.95 10^6/ul (4.20-5.40); WHITE BLOOD COUNT 6.55 K/ul (4.6-10.2)
--- NOTE | 2016-10-30 15:00 | DI ---
EXAM: Single view of the chest. History: Short of breath Comparison: Chest radiograph 05/10/2016 Findings: Heart size is normal. No focal consolidation. No appreciable pleural fluid and no pneum othorax. No acute osseous abnormalities. Impression: No acute cardiopulmonary process.
[2016-10-30 15:06] LABS: ALBUMIN 3.8 g/dL (3.4-5.0); ALBUMIN/GLOBULIN RATIO 1.09; ANION GAP 17.6; BILIRUBIN,TOTAL 0.44 mg/dL (0.00-1.20); BUN/CREATININE RATIO 8.59; CREATININE 1.28 mg/dL (0.60-1.30); POTASSIUM 3.6 mmol/L (3.5-5.10); TOTAL PROTEIN 7.3 g/dL (6.4-8.2)
== END 2016-10-30 16:42 | disposition home or self-care (01) ==
LOC: ED 14:08
DX: F41.9 Anxiety disorder, unspecified (principal); F17.210 Nicotine dependence, cigarettes, uncomplicated
CPT/HCPCS: 36415; 80053; 85025; 85379; 99283

== ENCOUNTER 2016-12-03 11:19 | Emergency (ER) ==
[2016-12-03 11:26] VITALS: BP 120/70; TEMP 98; BMI 21.4
[2016-12-03] MEDS ORDERED: ZOFRAN 4 MG/2 ML IM STA (11:27)
[2016-12-03] MEDS ORDERED: TORADOL IM STA (11:27)
[2016-12-03] MEDS ORDERED: MORPHINE 4 MG/ML SYRINGE IM STA (11:27)
[2016-12-03 11:38] LABS: BASOPHILS % (AUTO) 0.6 % (0.0-3.0); EOSINOPHILS % (AUTO) 0.6 % (0.0-7.0); HEMATOCRIT 36.7 % (37.0-47.0); HEMOGLOBIN 12.9 g/dl (12.0-16.0); IMMATURE GRANULOCYTE % (AUTO) 0.2 % (0.0-5.0); LYMPHOCYTES # (AUTO) 1.9 K/uL (0.60-3.4); LYMPHOCYTES % (AUTO) 30.3 (10.0-50.0); MEAN CORPUSCULAR HEMOGLOBIN 32.9 pg (27.0-31.0); MEAN CORPUSCULAR HGB CONC 35.1 (31.8-35.4); MEAN CORPUSCULAR VOLUME 93.6 fl (81.0-99.0); MONOCYTES # (AUTO) 0.5 K/uL (0.4-2.0); MONOCYTES % (AUTO) 7.1 (0-10); NEUTROPHILS # (AUTO) 3.9 K/ul (2.0-6.9); NEUTROPHILS % (AUTO) 61.2; PLATELET COUNT 307 10^3/uL (140-440); RED BLOOD COUNT 3.92 10^6/ul (4.20-5.40); WHITE BLOOD COUNT 6.34 K/ul (4.6-10.2)
[2016-12-03 11:55] LABS: SERUM PREGNANCY INTERNAL QC INTERNAL QC VALID
[2016-12-03 11:56] LABS: ALBUMIN 3.3 g/dL (3.4-5.0); ALBUMIN/GLOBULIN RATIO 1.06; ANION GAP 11.4; BILIRUBIN,TOTAL 0.2 mg/dL (0.00-1.20); BUN/CREATININE RATIO 11.57; CALCIUM 9.3 mg/dL (8.2-10.2); CREATININE 0.95 mg/dL (0.60-1.30); POTASSIUM 3.4 mmol/L (3.5-5.10); TOTAL PROTEIN 6.4 g/dL (6.4-8.2)
[2016-12-03 12:18] LABS: BILIRUBIN,URINE Negative (NEGATIVE); KETONES,URINE Negative (NEGATIVE); LEUKOCYTE ESTERASE ,URINE Negative (NEGATIVE); NITRITE,URINE Negative (NEGATIVE); PROTEIN,URINE Negative (NEGATIVE); URINE, BLOOD Negative (NEGATIVE)
[2016-12-03 12:19] LABS: ADD URINE MICROSCOPIC NO
--- NOTE | 2016-12-03 12:41 | CT ---
Exam: CT abdomen and pelvis without IV contrast. Clinical indication: Dysmenorrhea. No further information is provided. TECHNIQUE: Axial unenhanced CT images of the abdomen and pelvis were obtained followed by coronal a nd sagittal reformats. Comparison is made to the prior study dated 08/23/2013. Findings: The visualized portions of the lower thorax are within normal limits. There is no definite free intra-abdominal gas or fluid. There is no definite hydronephrosis or hydroureter bilaterally. Within the inferior aspect of the r ight kidney there is a 0.2 cm nonobstructive renal calculus. Within the mid portion of the right ki dney there are at least a few other hyperdense focus which likely represent nonobstructive renal segun culi. Within the mid left kidney there is a 0.2 cm nonobstructive renal calculus. There is some hy perdensity within the bilateral renal pyramids which could represent very early medullary nephrocalc inosis. The bilateral kidneys are otherwise unremarkable. The liver, gallbladder, adrenals, pancreas, and spleen are grossly unremarkable. There is minimal intra-abdominal fat which associate with lack of IV contrast and oral contrast make s separation of loops of bowel difficult. The bowel, including the appendix, is unremarkable. The pelvic organs are grossly unremarkable, given the limitations of CT for evaluating them. The visualized bony structures are unremarkable for the patient's age. Impression: 1. Small bilateral nonobstructive renal calculi. 2. Developing areas of hyperdensities/calcification within the bilateral medullary pyramids raising concern for medullary nephrocalcinosis. 3. Otherwise unremarkable CT of the abdomen and pelvis.
--- NOTE | 2016-12-03 12:44 | ED.PDOC ---
General ED Provider: Dr. ALIYAH HELTON-ER Chief Complaint: Non-specific Complaint Stated Complaint: im bleeding and im cramping Time Seen by Physician: 11:25 Mode of Arrival: Walk-In Information Source: Patient Exam Limitations: No limitations Primary Care Provider: AVNI VARGAS Nursing and Triage Documentation Reviewed and Agree: Yes MOVEMAN Complaint Exam - Vaginal Bleeding Complaint/Exam Onset/Duration: 3 days Symptoms Are: Still present Timing: Constant Initial Severity: Mild Current Severity: Moderate Character: Reports: Bright red Aggravating: Reports: None Alleviating: Reports: None Associated Signs and Symptoms: Reports: Abdominal pain, Cramping. Denies: Dizziness, Lightheadedness, Pale, UTI symptoms, Generalized pain Related History: Reports: Similar episode Spontaneous AB Risk Factors: Reports: None Placental Abruption Risk Factors: Reports: None Patient Rh Status: Unknown Abdominal Findings: Present: None Differential Diagnoses: DUB Review of Systems - Review Of Systems Constitutional: Reports: No symptoms Eyes: Reports: No symptoms Ears, Nose, Mouth, Throat: Reports: No symptoms Respiratory: Reports: No symptoms Cardiac: Reports: No symptoms GI: Reports: Abdominal pain : Reports: No symptoms Musculoskeletal: Reports: No symptoms Skin: Reports: No symptoms Neurological: Reports: No symptoms Endocrine: Reports: No symptoms Hematologic/Lymphatic: Reports: No symptoms All Other Systems: Reviewed and Negative Past Medical History - Past Medical History Previously Healthy: Yes Endocrine: Reports: DM 1, Hypothyroid, Dyslipidemia Cardiovascular: Reports: None Respiratory: Reports: None Hematological: Reports: Anemia Gastrointestinal: Reports: None Genitourinary: Reports: None Neuro/Psych: Reports: Migraine, Anxiety, Depression, Bipolar Disorder, Schizophrenia, Other (PAIN MANAGEMENT) Musculoskeletal: Reports: Back Pain (SCOLIOSIS) Cancer: Reports: None (BRAIN CYST, 3 BULGING DISCS IN BACK, SPINAL DETERIORATION , SCOLIOSIS, SCHIZ) Last Menstrual Period: 12/03/16 Other Pertinent Past Medical History: BRAIN CYST- NO SURGERY"ITS TOO DANGEROUS( CT report-arachnoid cyst=benign) - Surgical History General Surgical History: Reports: Orthopedic (COMPARTMENT SYNDROME SURGERY RIGHT FOREARM), Back Surgery (3 BULGING DISCS IN BACK, SPINAL DETERIORATION, SCOLIOSIS), Other - Family History Family History: Reports: Unknown - Social History Smoking Status: Current every day smoker, Light tobacco smoker Hx Substance Use: No Alcohol Screening: None Lives: With family Physical Exam - Physical Exam Appearance: Well-appearing, No pain distress, Well-nourished Pain Distress: Moderate Eyes: ROXI, EOMI, Conjunctiva clear ENT: Ears normal, Nose normal, Oropharynx normal Neck: Supple Respiratory: Airway patent, Breath sounds clear, Breath sounds equal, Respirations nonlabored Cardiovascular: RRR, Pulses normal, No rub, No murmur GI/: Soft, No masses, Bowel sounds normal, No Organomegaly, Tender Musculoskeletal: Normal strength, ROM intact, No edema, No calf tenderness Skin: Warm, Dry, Normal color Neurological: Sensation intact, Motor intact, Reflexes intact, Cranial nerves intact, Alert, Oriented Psychiatric: Affect appropriate, Mood appropriate Interpretation - Radiology Interpretation Radiology Interpretation By: Radiologist Radiology Results: Negative Exam Interpreted: CT Scan Critical Care Note - Critical Care Note Total Time (mins): 0 Course - Course Hematology/Chemistry: 12/03/16 11:32 12/03/16 11:32 Orders, Labs, Meds: Lab Review 12/03/16 12/03/16 11:32 12:10 WBC 6.34 RBC 3.92 L Hgb 12.9 Hct 36.7 L MCV 93.6 MCH 32.9 H MCHC 35.1 RDW Coeff of Kurt 12.8 Plt Count 307 Immature Gran % (Auto) 0.2 Neut % (Auto) 61.2 Lymph % (Auto) 30.3 [place] % (Auto) 7.1 Eos % (Auto) 0.6 Baso % (Auto) 0.6 Immature Gran # (Auto) 0.0 Neut # 3.9 Lymph # 1.9 [place] # 0.5 Eos # 0.0 Baso # 0.0 Sodium 137 Potassium 3.4 L Chloride 104 Carbon Dioxide 25 Anion Gap 11.4 BUN 11 Creatinine 0.95 Estimated GFR (MDRD) 70.00 BUN/Creatinine Ratio 11.57 Glucose 339 H Calcium 9.3 Total Bilirubin 0.20 AST 9 L ALT 15 Alkaline Phosphatase 50 Total Protein 6.4 Albumin 3.3 L Globulin 3.1 Albumin/Globulin Ratio 1.06 Amylase 46 Lipase 21 Serum , Qual Negative Urine Color Yellow Urine Clarity Clear Urine pH 6.0 Ur Specific [place] 1.010 Urine Protein Negative Urine Glucose (UA) 2+ Urine Ketones Negative Urine Blood Negative Urine Nitrite Negative Urine Bilirubin Negative Urine Urobilinogen 0.2 Ur Leukocyte Esterase Negative Orders Category Date Time Status AMYLASE Stat LAB 12/03/16 11:32 Completed CBC W/ AUTO DIFF Stat LAB 12/03/16 11:32 Completed COMPREHENSIVE METABOLIC PANEL Stat LAB 12/03/16 11:32 Completed LIPASE Stat LAB 12/03/16 11:32 Completed SERUM Stat LAB 12/03/16 11:32 Completed URINALYSIS C & S IF INDICATED Stat LAB 12/03/16 12:10 Completed Ketorolac Tromethamine [Toradol] MEDS 12/03/16 11:27 Discontinued 60 mg IM ONCE STA Morphine Sulfate [Morphine 4 mg/ml Syringe] MEDS 12/03/16 11:27 Discontinued 4 mg IM ONCE STA Ondansetron HCl/Pf [Zofran 4 mg/2 ml] MEDS 12/03/16 11:27 Discontinued 4 mg IM ONCE STA CT ABDOMEN/PELVIS WO CONTRAST Stat RADS 12/03/16 11:25 Completed Medications Discontinued Medications Generic Name Dose Route Start Last Admin Trade Name Freq PRN Reason Stop Dose Admin Ketorolac Tromethamine 60 mg 12/03/16 11:27 12/03/16 11:42 Toradol IM 12/03/16 11:28 60 mg ONCE STA Administration Morphine Sulfate 4 mg 12/03/16 11:27 12/03/16 11:41 Morphine 4 Mg/Ml Syringe IM 12/03/16 11:28 4 mg ONCE STA Administration Ondansetron HCl 4 mg 12/03/16 11:27 12/03/16 11:42 Zofran 4 Mg/2 Ml IM 12/03/16 11:28 4 mg ONCE STA Administration Vital Signs: Temp Pulse Resp BP Pulse Ox 12/03/16 11:20 98 F 94 H 20 120/70 97 Departure - Departure Time of Disposition: 12:47 Disposition: HOME SELF-CARE Discharge Problem: Dysmenorrhea Instructions: Dysmenorrhea (ED) Condition: Good Pt referred to PMD for follow-up: Yes Additional Instructions: resume iron---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 Allergies/Adverse Reactions: Allergies amoxicillin [Amoxicillin] Adverse Reaction (Verified 12/03/16 11:23) amoxicillin trihydrate [From Augmentin] Adverse Reaction (Verified 12/03/16 11: 23) cyclobenzaprine [From Flexeril] Adverse Reaction (Verified 12/03/16 11:23) diazepam [From Valium] Adverse Reaction (Verified 12/03/16 11:23) Penicillins Adverse Reaction (Verified 12/03/16 11:23) potassium clavulanate [From Augmentin] Adverse Reaction (Verified 12/03/16 11:23 ) tramadol Adverse Reaction (Verified 12/03/16 11:23) Home Medications: Ambulatory Orders Insulin Glargine,Hum.rec.anlog [Lantus] 40 unit SQ BID 10/04/12 Insulin Lispro [Humalog] 1 unit SQ DIRECTED PRN 11/24/12 Levothyroxine Sodium [Synthroid] 88 mcg PO DAILY 06/11/13 Hydrocodone Bit/Acetaminophen [[place] 7.5-325] 1 tab PO BID 06/15/16 Disposition Discussed With: Patient
== END 2016-12-03 12:54 | disposition home or self-care (01) ==
LOC: ED 11:19
DX: N94.6 Dysmenorrhea, unspecified (principal); F17.210 Nicotine dependence, cigarettes, uncomplicated
CPT/HCPCS: 36415; 80053; 81001; 82150; 83690; 84703; 85025; 96375; 99282

== ENCOUNTER 2017-01-24 18:31 | Emergency (ER) ==
[2017-01-24 18:38] VITALS: BP 115/77; TEMP 96.8; BMI 22.9
[2017-01-24 18:49] LABS: BILIRUBIN,URINE Negative (NEGATIVE); KETONES,URINE Negative (NEGATIVE); LEUKOCYTE ESTERASE ,URINE Negative (NEGATIVE); NITRITE,URINE Negative (NEGATIVE); PROTEIN,URINE Negative (NEGATIVE); URINE, BLOOD Negative (NEGATIVE)
--- NOTE | 2017-01-24 18:49 | ED.PDOC ---
General ED Provider: Dr. ALIYAH HELTON-ER Chief Complaint: Urinary Problem Stated Complaint: it merida when i pee Time Seen by Physician: 18:48 Mode of Arrival: Walk-In Information Source: Patient Exam Limitations: No limitations Primary Care Provider: AVNI VARGAS Nursing and Triage Documentation Reviewed and Agree: Yes Complaint Exam - UTI Female Complaint/Exam Patient Complains of: Reports: Painful urination Onset/Duration: 24 hrs Symptoms Are: Still present Timing: Constant Initial Severity: Mild Current Severity: Mild Location of Pain: Reports: Suprapubic Associated Signs and Symptoms: Denies: Fever, Chills, Flank pain, Dyspareunia, Vaginal discharge Patient Rh Status: Unknown Related History: Reports: Similar episode Related Surgical History: Reports: None CVA Tenderness: No Suprapubic Tenderness: No Differential Diagnoses: Cystitis Review of Systems - Review Of Systems Constitutional: Reports: No symptoms Eyes: Reports: No symptoms Ears, Nose, Mouth, Throat: Reports: No symptoms Respiratory: Reports: No symptoms Cardiac: Reports: No symptoms GI: Reports: No symptoms : Reports: Burning, Dysuria, Frequency, Urgency Musculoskeletal: Reports: No symptoms Skin: Reports: No symptoms Neurological: Reports: No symptoms Endocrine: Reports: No symptoms Hematologic/Lymphatic: Reports: No symptoms All Other Systems: Reviewed and Negative Past Medical History - Past Medical History Previously Healthy: Yes Endocrine: Reports: DM 1, Hypothyroid, Dyslipidemia Cardiovascular: Reports: None Respiratory: Reports: None Hematological: Reports: Anemia Gastrointestinal: Reports: None Genitourinary: Reports: None Neuro/Psych: Reports: Migraine, Anxiety, Depression, Bipolar Disorder, Schizophrenia, Other (PAIN MANAGEMENT) Musculoskeletal: Reports: Back Pain (SCOLIOSIS) Cancer: Reports: None (BRAIN CYST, 3 BULGING DISCS IN BACK, SPINAL DETERIORATION , SCOLIOSIS, SCHIZ) Last Menstrual Period: last month Other Pertinent Past Medical History: BRAIN CYST- NO SURGERY"ITS TOO DANGEROUS( CT report-arachnoid cyst=benign) - Surgical History General Surgical History: Reports: Orthopedic (COMPARTMENT SYNDROME SURGERY RIGHT FOREARM), Back Surgery (3 BULGING DISCS IN BACK, SPINAL DETERIORATION, SCOLIOSIS), Other - Family History Family History: Reports: Unknown - Social History Smoking Status: Current every day smoker, Light tobacco smoker Hx Substance Use: No Alcohol Screening: None Physical Exam - Physical Exam Appearance: Well-appearing, No pain distress, Well-nourished Eyes: ROXI, EOMI, Conjunctiva clear ENT: Ears normal, Nose normal, Oropharynx normal Neck: Supple Respiratory: Airway patent, Breath sounds clear, Breath sounds equal, Respirations nonlabored Cardiovascular: RRR, Pulses normal, No rub, No murmur GI/: Soft, Nontender, No masses, Bowel sounds normal, No Organomegaly Musculoskeletal: Normal strength, ROM intact, No edema, No calf tenderness Skin: Warm, Dry, Normal color Neurological: Sensation intact, Motor intact, Reflexes intact, Cranial nerves intact, Alert, Oriented, Focal Deficit Psychiatric: Affect appropriate, Mood appropriate, Anxious Critical Care Note - Critical Care Note Total Time (mins): 0 Course - Course Orders, Labs, Meds: Lab Review 01/24/17 18:41 Urine Color Yellow Urine Clarity Clear Urine pH 6.0 Ur Specific [place] <=1.005 Urine Protein Negative Urine Glucose (UA) 2+ Urine Ketones Negative Urine Blood Negative Urine Nitrite Negative Urine Bilirubin Negative Urine Urobilinogen 0.2 Ur Leukocyte Esterase Negative Orders Category Date Time Status URINALYSIS C & S IF INDICATED Stat LAB 01/24/17 18:41 Completed URINE CULTURE Stat LAB 01/24/17 18:41 Received Vital Signs: Temp Pulse Resp BP Pulse Ox 01/24/17 18:32 96.8 F L 98 H 20 115/77 98 Departure - Departure Time of Disposition: 18:52 Disposition: HOME SELF-CARE Discharge Problem: Dysuria Instructions: Dysuria (ED) Condition: Good Pt referred to PMD for follow-up: Yes Additional Instructions: doxycyline 100mg q 12hrs #14--pyridium 200mg tid with food #6---f/u with pcp-- diflucan 100mg x 1 Allergies/Adverse Reactions: Allergies amoxicillin [Amoxicillin] Adverse Reaction (Verified 01/24/17 18:40) amoxicillin trihydrate [From Augmentin] Adverse Reaction (Verified 01/24/17 18: 40) cyclobenzaprine [From Flexeril] Adverse Reaction (Verified 01/24/17 18:40) diazepam [From Valium] Adverse Reaction (Verified 01/24/17 18:40) Penicillins Adverse Reaction (Verified 01/24/17 18:40) potassium clavulanate [From Augmentin] Adverse Reaction (Verified 01/24/17 18:40 ) tramadol Adverse Reaction (Verified 01/24/17 18:40) Home Medications: Ambulatory Orders Insulin Glargine,Hum.rec.anlog [Lantus] 40 unit SQ BID 10/04/12 Insulin Lispro [Humalog] 1 unit SQ DIRECTED PRN 11/24/12 Levothyroxine Sodium [Synthroid] 88 mcg PO DAILY 06/11/13 Hydrocodone Bit/Acetaminophen [[place] 7.5-325] 1 tab PO BID 06/15/16 Pravastatin Sodium [Pravachol] 40 mg PO BEDTIME 01/24/17 Disposition Discussed With: Patient
[2017-01-24 18:50] LABS: ADD URINE MICROSCOPIC NO
== END 2017-01-24 19:02 | disposition home or self-care (01) ==
LOC: ED 18:31
DX: R30.0 Dysuria (principal); F17.210 Nicotine dependence, cigarettes, uncomplicated
CPT/HCPCS: 81001; 87086; 99283

== ENCOUNTER 2017-02-24 17:30 | Emergency (ER) ==
[2017-02-24 17:40] VITALS: BP 112/70; TEMP 96.8; BMI 20.7
--- NOTE | 2017-02-24 18:15 | ED.PDOC ---
General ED Provider: Dr. ALIYAH HELTON-ER Chief Complaint: Vaginal Discharge/Swelling Stated Complaint: c/o discharge vaginally for the past few days--no fevr or chills or pelvic pain--denies any penile penetration Time Seen by Physician: 17:35 Mode of Arrival: Walk-In Information Source: Patient Exam Limitations: No limitations Primary Care Provider: AVNI VARGAS Nursing and Triage Documentation Reviewed and Agree: Yes Complaint Exam - Complaint/Exam Patient Complains of: Reports: Vaginal discharge Symptoms Are: Still present Initial Severity: Mild Current Severity: Mild Aggravating: Reports: None Alleviating: Reports: None Associated Signs and Symptoms: Reports: Vaginal discharge Ovarian Torsion Risk Factors: Reports: Reproductive age Surgical Obstruction Risk Factors: Reports: None RH Status: Unknown Related Surgical History: Reports: None Abdominal Findings: Present: None Differential Diagnoses: STD, UTI, Other Review of Systems - Review Of Systems Constitutional: Reports: No symptoms Eyes: Reports: No symptoms Ears, Nose, Mouth, Throat: Reports: No symptoms Respiratory: Reports: No symptoms Cardiac: Reports: No symptoms GI: Reports: No symptoms : Reports: Discharge Musculoskeletal: Reports: No symptoms Skin: Reports: No symptoms Neurological: Reports: No symptoms Endocrine: Reports: No symptoms Hematologic/Lymphatic: Reports: No symptoms All Other Systems: Reviewed and Negative Past Medical History - Past Medical History Previously Healthy: Yes Endocrine: Reports: DM 1, Hypothyroid, Dyslipidemia Cardiovascular: Reports: None Respiratory: Reports: None Hematological: Reports: Anemia Gastrointestinal: Reports: None Genitourinary: Reports: None Neuro/Psych: Reports: Migraine, Anxiety, Depression, Bipolar Disorder, Schizophrenia, Other (PAIN MANAGEMENT) Musculoskeletal: Reports: Back Pain (SCOLIOSIS) Cancer: Reports: None (BRAIN CYST, 3 BULGING DISCS IN BACK, SPINAL DETERIORATION , SCOLIOSIS, SCHIZ) Last Menstrual Period: 01/29/17 Other Pertinent Past Medical History: BRAIN CYST- NO SURGERY"ITS TOO DANGEROUS( CT report-arachnoid cyst=benign) - Surgical History General Surgical History: Reports: Orthopedic (COMPARTMENT SYNDROME SURGERY RIGHT FOREARM), Back Surgery (3 BULGING DISCS IN BACK, SPINAL DETERIORATION, SCOLIOSIS), Other - Family History Family History: Reports: Unknown - Social History Smoking Status: Current every day smoker, Light tobacco smoker Hx Substance Use: No Alcohol Screening: None Lives: With family - Immunizations Tetanus Shot up to Date: No Physical Exam - Physical Exam Appearance: Well-appearing, No pain distress, Well-nourished Eyes: ROXI, EOMI, Conjunctiva clear ENT: Ears normal Neck: Supple Respiratory: Airway patent, Breath sounds clear, Breath sounds equal, Respirations nonlabored Cardiovascular: RRR GI/: Soft, Nontender, No masses, Bowel sounds normal, No Organomegaly Musculoskeletal: Normal strength, ROM intact, No edema, No calf tenderness Skin: Warm, Dry, Normal color Neurological: Sensation intact Psychiatric: Affect appropriate, Mood appropriate Critical Care Note - Critical Care Note Total Time (mins): 1 Course - Course Orders, Labs, Meds: Lab Review 02/24/17 18:09 Urine Color Yellow Urine Clarity Clear Urine pH 6.0 Ur Specific [place] 1.010 Urine Protein Negative Urine Glucose (UA) 2+ Urine Ketones Negative Urine Blood Trace-intact Urine Nitrite Negative Urine Bilirubin Negative Urine Urobilinogen 0.2 Ur Leukocyte Esterase Negative Urine Microscopic RBC 0-2 Urine Microscopic WBC 0-2 Ur Squamous Epith Cells 2-5 Orders Category Date Time Status URINALYSIS C & S IF INDICATED Stat LAB 02/24/17 18:09 Completed URINE CULTURE Stat LAB 02/24/17 18:09 Received URINE Stat LAB 02/24/17 18:09 Received she declines pelvic exam today) Vital Signs: Temp Pulse Resp BP Pulse Ox 02/24/17 17:31 96.8 F L 122 H 20 112/70 99 Departure - Departure Time of Disposition: 18:30 Disposition: HOME SELF-CARE Discharge Problem: Vaginal discharge Instructions: Vaginitis (ED) Condition: Good Pt referred to PMD for follow-up: Yes Additional Instructions: flagyl 250mg tid x 7 days--diflucan 100mg x 3 days--see dr vargas next week for pelvic exam Allergies/Adverse Reactions: Allergies amoxicillin [Amoxicillin] Adverse Reaction (Verified 02/24/17 17:40) amoxicillin trihydrate [From Augmentin] Adverse Reaction (Verified 02/24/17 17: 40) cyclobenzaprine [From Flexeril] Adverse Reaction (Verified 02/24/17 17:40) diazepam [From Valium] Adverse Reaction (Verified 02/24/17 17:40) Penicillins Adverse Reaction (Verified 02/24/17 17:40) potassium clavulanate [From Augmentin] Adverse Reaction (Verified 02/24/17 17:40 ) tramadol Adverse Reaction (Verified 02/24/17 17:40) Home Medications: Ambulatory Orders Insulin Glargine,Hum.rec.anlog [Lantus] 40 unit SQ BID 10/04/12 Insulin Lispro [Humalog] 1 unit SQ DIRECTED PRN 11/24/12 Levothyroxine Sodium [Synthroid] 88 mcg PO DAILY 06/11/13 Hydrocodone Bit/Acetaminophen [[place] 7.5-325] 1 tab PO BID 06/15/16 Pravastatin Sodium [Pravachol] 40 mg PO BEDTIME 01/24/17 Disposition Discussed With: Patient, Family
[2017-02-24 18:16] LABS: ADD URINE MICROSCOPIC YES; BILIRUBIN,URINE Negative (NEGATIVE); KETONES,URINE Negative (NEGATIVE); LEUKOCYTE ESTERASE ,URINE Negative (NEGATIVE); NITRITE,URINE Negative (NEGATIVE); PROTEIN,URINE Negative (NEGATIVE); URINE, BLOOD Trace-intact (NEGATIVE)
[2017-02-24 18:42] LABS: URINE PREGNANCY INTERNAL QC INTERNAL QC VALID
== END 2017-02-24 18:41 | disposition home or self-care (01) ==
LOC: ED 17:30
DX: N89.8 Other specified noninflammatory disorders of vagina (principal); F17.210 Nicotine dependence, cigarettes, uncomplicated
CPT/HCPCS: 81001; 81025; 87086; 99283

== ENCOUNTER 2017-03-20 16:49 | Emergency (ER) ==
[2017-03-20 16:49] VITALS: BMI 20.7
[2017-03-20 16:55] VITALS: BP 117/78; TEMP 96.8
--- NOTE | 2017-03-20 17:36 | ED.PDOC ---
General ED Provider: Dr. TEO MILLER JR Chief Complaint: Abdominal Pain Stated Complaint: pt sent from [facility] with abd pain. pelvic exam checked for trich, discharge and pap, writhing ,with abd pain, told to come get checked out. pt sleeping in lobby. states she is always hot, forgets things and everything hurts, tired all the time. states has clear gooey discharge, itching and burning. [ End ]3 months 98.6 100 20 98% 117/78 01/23. states no benefit from prior meds has not tried gabapentin has seen PA not OBGYN Time Seen by Physician: 17:35 Mode of Arrival: Walk-In Information Source: Patient Exam Limitations: No limitations Primary Care Provider: AVNI VARGAS Nursing and Triage Documentation Reviewed and Agree: No Review of Systems - Review Of Systems Constitutional: Reports: Malaise, Weakness Eyes: Reports: Blurred vision : Reports: Burning, Discharge, Pain, Other Musculoskeletal: Reports: Joint swelling, Muscle pain Skin: Reports: No symptoms Neurological: Reports: Anxiety, Headache Endocrine: Reports: Other Hematologic/Lymphatic: Reports: Other All Other Systems: Other Past Medical History - Past Medical History Previously Healthy: Yes Endocrine: Reports: DM 1, Hypothyroid, Dyslipidemia Cardiovascular: Reports: None Respiratory: Reports: None Hematological: Reports: Anemia Gastrointestinal: Reports: None Genitourinary: Reports: None Neuro/Psych: Reports: Migraine, Anxiety, Depression, Bipolar Disorder, Schizophrenia, Other (pain management, ) Musculoskeletal: Reports: Back Pain (SCOLIOSIS, SPINAL DETERIORATION), Other ( COMPARTMENT SYNDROME SURGERY RIGHT FOREARM(? IV glucose side effect)) Cancer: Reports: None Last Menstrual Period: mar 01 Other Pertinent Past Medical History: BRAIN CYST- NO SURGERY"ITS TOO DANGEROUS( CT report-arachnoid cyst=benign) - Surgical History General Surgical History: Reports: Orthopedic (COMPARTMENT SYNDROME SURGERY RIGHT FOREARM), Back Surgery (3 BULGING DISCS IN BACK, SPINAL DETERIORATION, SCOLIOSIS), Other (CYST REMOVED FROM TOP OF HEAD) - Family History Family History: Reports: Unknown - Social History Smoking Status: Current every day smoker, Light tobacco smoker Hx Substance Use: No Alcohol Screening: None Physical Exam - Physical Exam Appearance: Well-appearing Pain Distress: Moderate Eyes: ROXI, EOMI, Conjunctiva clear ENT: Ears normal, Nose normal, Oropharynx normal Neck: Supple Respiratory: Airway patent, Rhonchi Cardiovascular: RRR, Pulses normal, No rub, No murmur GI/: Soft, No masses, Tender (nonfocal less when distracted unable to relate to activity or meals, note uninformative CTscan agrees to repeat but declines contrast), Bowel sounds hypoactive Musculoskeletal: Normal strength, ROM intact, No edema, No calf tenderness Skin: Warm, Dry, Normal color (note left hand lesion "carved" with ink pen- two words describes inverted reading) Neurological: Sensation intact, Motor intact, Reflexes intact, Cranial nerves intact, Alert, Oriented Psychiatric: Affect appropriate, Mood appropriate Re-Evaluation - Re-Evaluation Time of Re-Evaluation: 08:40 Status: Improved (discussed CT with patient , pelvic not repeated, cultures pending- antibiotics not repeated given chronic nature of symptoms(3months per patient)and negative prior testing, states no sexual activity, no documeneted gc ?chla- will send tests given symptoms but referback to OB for treatment) Critical Care Note - Critical Care Note Total Time (mins): 5 Course - Course Orders, Labs, Meds: Lab Review 03/20/17 17:15 Urine Color Yellow Urine Clarity Clear Urine pH 6.0 Ur Specific [place] 1.010 Urine Protein Negative Urine Glucose (UA) 2+ Urine Ketones Negative Urine Blood Negative Urine Nitrite Negative Urine Bilirubin Negative Urine Urobilinogen 0.2 Ur Leukocyte Esterase Negative Orders Category Date Time Status NPO REMINDER: IMAGING ONCE CARE 03/20/17 17:07 Completed CHLAMYDIA/GC AMPLIFICATION Stat LAB 03/20/17 17:15 Received URINALYSIS C & S IF INDICATED Stat LAB 03/20/17 17:15 Completed Vital Signs: Temp Pulse Resp BP Pulse Ox 03/20/17 16:49 96.8 F L 100 H 20 117/78 98 Departure - Departure Time of Disposition: 18:29 Disposition: HOME SELF-CARE Discharge Problem: Abdominal pain Instructions: Chronic Abdominal Pain (ED) Condition: Fair Pt referred to PMD for follow-up: Yes Additional Instructions: abdominal pain was not diagnosed on prior CT scan a CT scan with contrast is reasonable, but you refused it due to concerns about an IV no further testing in the ER is likely to provide new information a Passenger Brakeman exam is indicated to evaluate for best treatment recommend use Tylenol and Motrin at each less than full dose warm abdominal packs are helpful but warm NOT hot packs (temperature should be 112 or less as measured with an bath thermometer) if fever over 101.0 if no bowel movement for three days if uncontrolled vomiting return for treatment return if worse May try Gabapentin for pain follow up with PMD recommend OBGYN consult Prescriptions: Gabapentin 300 mg PO TID PRN #30 capsule PRN Reason: PAIN Allergies/Adverse Reactions: Allergies amoxicillin [Amoxicillin] Adverse Reaction (Verified 03/20/17 16:56) amoxicillin trihydrate [From Augmentin] Adverse Reaction (Verified 03/20/17 16: 56) cyclobenzaprine [From Flexeril] Adverse Reaction (Verified 03/20/17 16:56) diazepam [From Valium] Adverse Reaction (Verified 03/20/17 16:56) Penicillins Adverse Reaction (Verified 03/20/17 16:56) potassium clavulanate [From Augmentin] Adverse Reaction (Verified 03/20/17 16:56 ) tramadol Adverse Reaction (Verified 03/20/17 16:56) Home Medications: Ambulatory Orders Insulin Glargine,Hum.rec.anlog [Lantus] 40 unit SQ BID 10/04/12 Insulin Lispro [Humalog] 1 unit SQ DIRECTED PRN 11/24/12 Levothyroxine Sodium [Synthroid] 88 mcg PO DAILY 06/11/13 Hydrocodone Bit/Acetaminophen [[place] 7.5-325] 1 tab PO BID 06/15/16 Pravastatin Sodium [Pravachol] 40 mg PO BEDTIME 01/24/17 Gabapentin 300 mg PO TID PRN #30 capsule 03/20/17
[2017-03-20 17:40] LABS: BILIRUBIN,URINE Negative (NEGATIVE); KETONES,URINE Negative (NEGATIVE); LEUKOCYTE ESTERASE ,URINE Negative (NEGATIVE); NITRITE,URINE Negative (NEGATIVE); PROTEIN,URINE Negative (NEGATIVE); URINE, BLOOD Negative (NEGATIVE)
[2017-03-20 17:44] LABS: ADD URINE MICROSCOPIC NO
== END 2017-03-20 18:56 | disposition home or self-care (01) ==
LOC: ED 16:49
DX: R10.9 Unspecified abdominal pain (principal); F17.210 Nicotine dependence, cigarettes, uncomplicated
CPT/HCPCS: 36415; 81001; 87800; 99283

== ENCOUNTER 2017-04-07 19:31 | Emergency (ER) ==
[2017-04-07] MEDS ORDERED: NORCO 7.5-325 PO STA (19:37)
[2017-04-07] MEDS ORDERED: CLEOCIN PO STA (19:38)
[2017-04-07 19:40] VITALS: BP 122/87; TEMP 97.3; BMI 25.0
--- NOTE | 2017-04-07 19:41 | ED.PDOC ---
General ED Provider: Dr. ALIYAH HELTON-ER Chief Complaint: Finger Pain/Injury Stated Complaint: nichole got an infection near by nail Time Seen by Physician: 19:39 Mode of Arrival: Walk-In Information Source: Patient Exam Limitations: No limitations Primary Care Provider: AVNI VARGAS Nursing and Triage Documentation Reviewed and Agree: Yes Reviewed sepsis parameters & appropriate labs ordered?: Yes System Inflammatory Response Syndrome: Not Applicable Sepsis Protocol: For patient's 13 years and over: Temp is 96.8 and below OR 101 and greater Pulse >90 BPM Resp >20/minute Acutely Altered Mental Status Are patient's symptoms suggestive of a new infection, such as: -Pneumonia -Skin, Soft Tissue -Endocarditis -UTI -Bone, Joint Infection -Implantable Device -Acute Abdominal Infection -Wound Infection -Meningitis -Blood Stream Catheter Infection -Unknown Skin Complaint Exam - Skin/Soft Tissue Complaint/Exam Onset/Duration: 2 weeks Symptoms Are: Still present Timing: Constant Initial Severity: Mild Current Severity: Mild Location: right index finger Character: Reports: Redness, Swelling, Raised, Painful Aggravating: Reports: Touch Associated Signs and Symptoms: Reports: Tenderness Related History: Reports: Similar episode Recent Exposure to Others w/Similar Symptoms: No Skin Findings: Present: Erythema, Induration Joint Tenderness Present: No Differential Diagnoses: Infection Review of Systems - Review Of Systems Constitutional: Reports: No symptoms Eyes: Reports: No symptoms Ears, Nose, Mouth, Throat: Reports: No symptoms Respiratory: Reports: No symptoms Cardiac: Reports: No symptoms GI: Reports: No symptoms : Reports: No symptoms Musculoskeletal: Reports: No symptoms Skin: Reports: Change in hair/nails, Rash Neurological: Reports: No symptoms Endocrine: Reports: No symptoms Hematologic/Lymphatic: Reports: No symptoms All Other Systems: Reviewed and Negative Past Medical History - Past Medical History Previously Healthy: Yes Endocrine: Reports: DM 1, Hypothyroid, Dyslipidemia Cardiovascular: Reports: None Respiratory: Reports: None Hematological: Reports: Anemia Gastrointestinal: Reports: None Genitourinary: Reports: None Neuro/Psych: Reports: Migraine, Anxiety, Depression, Bipolar Disorder, Schizophrenia, Other (pain management, ) Musculoskeletal: Reports: Back Pain (SCOLIOSIS, SPINAL DETERIORATION), Other ( COMPARTMENT SYNDROME SURGERY RIGHT FOREARM(? IV glucose side effect)) Cancer: Reports: None Last Menstrual Period: TWO WEEKS Other Pertinent Past Medical History: BRAIN CYST- NO SURGERY"ITS TOO DANGEROUS( CT report-arachnoid cyst=benign) - Surgical History General Surgical History: Reports: Orthopedic (COMPARTMENT SYNDROME SURGERY RIGHT FOREARM), Back Surgery (3 BULGING DISCS IN BACK, SPINAL DETERIORATION, SCOLIOSIS), Other (CYST REMOVED FROM TOP OF HEAD) - Family History Family History: Reports: Unknown - Social History Smoking Status: Current every day smoker, Light tobacco smoker Hx Substance Use: No Alcohol Screening: None Lives: With family - Immunizations Tetanus Shot up to Date: Yes Physical Exam - Physical Exam Appearance: Well-appearing, No pain distress, Well-nourished Pain Distress: Mild Eyes: ROXI, EOMI, Conjunctiva clear ENT: Ears normal, Nose normal, Oropharynx normal Neck: Supple Respiratory: Airway patent, Breath sounds clear, Breath sounds equal, Respirations nonlabored Cardiovascular: RRR, Pulses normal, No rub, No murmur GI/: Soft, Nontender, No masses, Bowel sounds normal, No Organomegaly Musculoskeletal: Normal strength, ROM intact, Edema (noted erythema and induration near lateral edge of nail) Skin: Warm Neurological: Sensation intact, Motor intact, Reflexes intact, Cranial nerves intact, Alert, Oriented Psychiatric: Affect appropriate, Mood appropriate Critical Care Note - Critical Care Note Total Time (mins): 0 Course - Course Orders, Labs, Meds: Orders Category Date Time Status Clindamycin HCl [Cleocin] MEDS 04/07/17 19:38 Discontinued 150 mg PO ONCE STA Hydrocodone Bit/Acetaminophen [[place] 7.5-325] MEDS 04/07/17 19:37 Discontinued 1 tab PO ONCE STA Medications Discontinued Medications Generic Name Dose Route Start Last Admin Trade Name Freq PRN Reason Stop Dose Admin Acetaminophen/Hydrocodone Bitart 1 tab 04/07/17 19:37 [place] 7.5-325 PO 04/07/17 19:38 ONCE STA Clindamycin HCl 150 mg 04/07/17 19:38 Cleocin PO 04/07/17 19:39 ONCE STA Vital Signs: Temp Pulse Resp BP Pulse Ox 04/07/17 19:34 97.3 F L 106 H 18 122/87 98 Departure - Departure Time of Disposition: 19:41 Disposition: HOME SELF-CARE Discharge Problem: Paronychia Instructions: Paronychia (ED) Condition: Good Pt referred to PMD for follow-up: Yes Additional Instructions: clindamycin 150mg tid x 7 days..motrin for pain---f/u with pcp Allergies/Adverse Reactions: Allergies amoxicillin [Amoxicillin] Adverse Reaction (Verified 03/20/17 16:56) amoxicillin trihydrate [From Augmentin] Adverse Reaction (Verified 03/20/17 16: 56) cyclobenzaprine [From Flexeril] Adverse Reaction (Verified 03/20/17 16:56) diazepam [From Valium] Adverse Reaction (Verified 03/20/17 16:56) Penicillins Adverse Reaction (Verified 03/20/17 16:56) potassium clavulanate [From Augmentin] Adverse Reaction (Verified 03/20/17 16:56 ) tramadol Adverse Reaction (Verified 03/20/17 16:56) Home Medications: Ambulatory Orders Insulin Glargine,Hum.rec.anlog [Lantus] 40 unit SQ BID 10/04/12 Insulin Lispro [Humalog] 1 unit SQ DIRECTED PRN 11/24/12 Levothyroxine Sodium [Synthroid] 88 mcg PO DAILY 06/11/13 Hydrocodone Bit/Acetaminophen [[place] 7.5-325] 1 tab PO BID 06/15/16 Pravastatin Sodium [Pravachol] 40 mg PO BEDTIME 01/24/17 Gabapentin 300 mg PO TID PRN #30 capsule 03/20/17 Disposition Discussed With: Patient
== END 2017-04-07 20:14 | disposition home or self-care (01) ==
LOC: ED 19:31
DX: L03.011 Cellulitis of right finger (principal); F17.210 Nicotine dependence, cigarettes, uncomplicated
CPT/HCPCS: 99282

== ENCOUNTER 2017-05-04 02:09 | Emergency (ER) ==
[2017-05-04 02:22] VITALS: BP 123/78; TEMP 98.5; BMI 20.7
[2017-05-04] MEDS ORDERED: DECADRON 4 MG/ML SDV IM STA (02:34)
--- NOTE | 2017-05-04 02:36 | ED.PDOC ---
General ED Provider: Dr. JAMESON BRAXTON Chief Complaint: Sore Throat Stated Complaint: Been hurting in throat, hurts to swallow. left ear pain. Time Seen by Physician: 02:34 Mode of Arrival: Walk-In Information Source: Patient Primary Care Provider: AVNI VARGAS Nursing and Triage Documentation Reviewed and Agree: Yes Reviewed sepsis parameters & appropriate labs ordered?: No System Inflammatory Response Syndrome: Not Applicable Sepsis Protocol: For patient's 13 years and over: Temp is 96.8 and below OR 101 and greater Pulse >90 BPM Resp >20/minute Acutely Altered Mental Status Are patient's symptoms suggestive of a new infection, such as: -Pneumonia -Skin, Soft Tissue -Endocarditis -UTI -Bone, Joint Infection -Implantable Device -Acute Abdominal Infection -Wound Infection -Meningitis -Blood Stream Catheter Infection -Unknown EENT Complaint Exam - Throat Complaint/Exam Symptoms Are: Still present Timimg: Constant Initial Severity: Moderate Current Severity: Moderate Aggravating: Reports: Eating Alleviating: Reports: None Associated Signs and Symptoms: Reports: Dysphagia, Ear drainage Uvula Midline: Yes Verona-tonsillar Fluctuence: No Scarlatinaform Rash Present: No Stridor Present: No Sinus Tenderness Present: No Tonsillar Hypertrophy Present: No Tonsillar Exudate Present: No [place]-tonsillar Swelling Present: No Adenopathy Present: No Splenomegaly Present: No Differential Diagnoses: Pharyngitis Review of Systems - Review Of Systems Constitutional: Reports: No symptoms Eyes: Reports: No symptoms Ears, Nose, Mouth, Throat: Reports: Ear pain, Throat pain Respiratory: Reports: No symptoms Cardiac: Reports: No symptoms GI: Reports: No symptoms : Reports: No symptoms Musculoskeletal: Reports: No symptoms Skin: Reports: No symptoms Neurological: Reports: No symptoms Endocrine: Reports: No symptoms Hematologic/Lymphatic: Reports: No symptoms All Other Systems: Reviewed and Negative Past Medical History - Past Medical History Previously Healthy: Yes Endocrine: Reports: DM 1, Hypothyroid, Dyslipidemia Cardiovascular: Reports: None Respiratory: Reports: None Hematological: Reports: Anemia Gastrointestinal: Reports: None Genitourinary: Reports: None Neuro/Psych: Reports: Migraine, Anxiety, Depression, Bipolar Disorder, Schizophrenia, Other (pain management, ) Musculoskeletal: Reports: Back Pain (SCOLIOSIS, SPINAL DETERIORATION), Other ( COMPARTMENT SYNDROME SURGERY RIGHT FOREARM(? IV glucose side effect)) Cancer: Reports: None Last Menstrual Period: PRESENTLY Other Pertinent Past Medical History: BRAIN CYST- NO SURGERY"ITS TOO DANGEROUS( CT report-arachnoid cyst=benign) - Surgical History General Surgical History: Reports: Orthopedic (COMPARTMENT SYNDROME SURGERY RIGHT FOREARM), Back Surgery (3 BULGING DISCS IN BACK, SPINAL DETERIORATION, SCOLIOSIS), Other (CYST REMOVED FROM TOP OF HEAD) - Family History Family History: Reports: Unknown - Social History Smoking Status: Current every day smoker, Light tobacco smoker Hx Substance Use: No Alcohol Screening: None - Immunizations Tetanus Shot up to Date: Yes Physical Exam - Physical Exam Appearance: Well-appearing, No pain distress, Well-nourished Eyes: ROXI, EOMI, Conjunctiva clear ENT: Ears normal, Nose normal, TMs [place], Erythema Respiratory: Airway patent, Breath sounds clear, Breath sounds equal, Respirations nonlabored Cardiovascular: RRR, Pulses normal, No rub, No murmur GI/: Soft, Nontender, No masses, Bowel sounds normal, No Organomegaly Musculoskeletal: Normal strength, ROM intact, No edema, No calf tenderness Skin: Warm, Dry, Normal color Neurological: Sensation intact, Motor intact, Reflexes intact, Cranial nerves intact, Alert, Oriented Psychiatric: Affect appropriate, Mood appropriate Critical Care Note - Critical Care Note Total Time (mins): 10 Course - Course Orders, Labs, Meds: Orders Category Date Time Status MOLECULAR GROUP A STREP Stat LAB 05/04/17 02:30 Ordered Vital Signs: Temp Pulse Resp BP Pulse Ox 05/04/17 02:13 98.5 F 106 H 20 123/78 99 Departure - Departure Time of Disposition: 02:38 Disposition: HOME SELF-CARE Discharge Problem: Streptococcal sore throat Instructions: Strep Throat (ED) Condition: Stable Pt referred to PMD for follow-up: Yes IPMP verified?: No Additional Instructions: Increase Hydration Tylenol prn Keep checking Blood sugars Prescriptions: Azithromycin [Zithromax] 250 mg PO DIRECTED #6 tablet Prednisone 5 mg PO BIDWM #14 tablet Allergies/Adverse Reactions: Allergies amoxicillin [Amoxicillin] Adverse Reaction (Verified 05/04/17 02:22) amoxicillin trihydrate [From Augmentin] Adverse Reaction (Verified 05/04/17 02: 22) cyclobenzaprine [From Flexeril] Adverse Reaction (Verified 05/04/17 02:22) diazepam [From Valium] Adverse Reaction (Verified 05/04/17 02:22) Penicillins Adverse Reaction (Verified 05/04/17 02:22) potassium clavulanate [From Augmentin] Adverse Reaction (Verified 05/04/17 02:22 ) tramadol Adverse Reaction (Verified 05/04/17 02:22) Home Medications: Ambulatory Orders Insulin Glargine,Hum.rec.anlog [Lantus] 40 unit SQ BID 10/04/12 Insulin Lispro [Humalog] 1 unit SQ DIRECTED PRN 11/24/12 Levothyroxine Sodium [Synthroid] 88 mcg PO DAILY 06/11/13 Hydrocodone Bit/Acetaminophen [[place] 7.5-325] 1 tab PO BID 06/15/16 Pravastatin Sodium [Pravachol] 40 mg PO BEDTIME 01/24/17 Azithromycin [Zithromax] 250 mg PO DIRECTED #6 tablet 05/04/17 Disposition Discussed With: Patient
[2017-05-04] MEDS ORDERED: ZITHROMAX PO STA (02:56)
== END 2017-05-04 03:11 | disposition home or self-care (01) ==
LOC: ED 02:09
DX: J02.0 Streptococcal pharyngitis (principal); F17.210 Nicotine dependence, cigarettes, uncomplicated
CPT/HCPCS: 87651; 99283

== ENCOUNTER 2017-10-02 00:50 | Emergency (ER) ==
[2017-10-02 01:01] VITALS: BP 120/70; TEMP 99
[2017-10-02 01:05] VITALS: BMI 25.5
[2017-10-02] MEDS ORDERED: TYLENOL PO STA (01:11)
--- NOTE | 2017-10-02 01:41 | DI ---
EXAM: Three views left ankle. HISTORY: Fall. FINDINGS: The bones are intact with no evidence of fracture. The joint spaces are maintained. There is diffuse soft tissue swelling. Impression: No evidence of fracture. Diffuse soft tissue swelling.
--- NOTE | 2017-10-02 01:44 | ED.PDOC ---
General ED Provider: Dr. JAIRO REYES Chief Complaint: Ankle Pain/Injury Stated Complaint: states fell about a week ago with injury to the Left foot and ankle. State she has had difficulty walking on it. has to walk on Toes. has been taking Tylenol but not today. Time Seen by Physician: 01:10 Mode of Arrival: Wheelchair Information Source: Patient Exam Limitations: No limitations Primary Care Provider: AVNI VARGAS Nursing and Triage Documentation Reviewed and Agree: Yes Reviewed sepsis parameters & appropriate labs ordered?: No System Inflammatory Response Syndrome: Pulse >90 BPM Sepsis Protocol: For patient's 13 years and over: Temp is 96.8 and below OR 101 and greater Pulse >90 BPM Resp >20/minute Acutely Altered Mental Status Are patient's symptoms suggestive of a new infection, such as: -Pneumonia -Skin, Soft Tissue -Endocarditis -UTI -Bone, Joint Infection -Implantable Device -Acute Abdominal Infection -Wound Infection -Meningitis -Blood Stream Catheter Infection -Unknown Musculoskeletal Complaint Exam - Ankle/Foot Complaint/Exam Location of Injury: Reports: Left, Ankle, Foot Mechanism of Injury: Reports: Trauma (fall ) Onset/Duration: 7 days ago Symptoms Are: Reports: Still present Onset of Pain: Reports: Immediate, Post accident Initial Severity: Severe Current Severity: Moderate Location: Reports: Diffuse Character: Reports: Aching, Throbbing Alleviating: Reports: Rest Aggravating: Reports: Movement, Weight bearing, Prolonged standing Associated Signs and Symptoms: Reports: Swelling. Denies: Redness, Bruising, Fever, Weakness, Numbness Gout Risk Factors: Reports: None Related Surgical History: Reports: None Lower Extremity Findings: Present: Swelling Tenderness: Present: Lateral malleolus Ankle/Foot Picture: 1 - swelling Differential Diagnosis: Closed Fracture, Sprain, Strain Review of Systems - Review Of Systems Constitutional: Reports: No symptoms Eyes: Reports: No symptoms Ears, Nose, Mouth, Throat: Reports: No symptoms Respiratory: Reports: No symptoms Cardiac: Reports: No symptoms GI: Reports: No symptoms : Reports: No symptoms Musculoskeletal: Reports: Joint pain, Joint swelling Skin: Reports: No symptoms Neurological: Reports: No symptoms Endocrine: Reports: No symptoms Hematologic/Lymphatic: Reports: No symptoms All Other Systems: Reviewed and Negative Past Medical History - Past Medical History Previously Healthy: Yes Endocrine: Reports: DM 1, Hypothyroid, Dyslipidemia Cardiovascular: Reports: None Respiratory: Reports: None Hematological: Reports: Anemia Gastrointestinal: Reports: None Genitourinary: Reports: None Neuro/Psych: Reports: Migraine, Anxiety, Depression, Bipolar Disorder, Schizophrenia, Other (pain management, ) Musculoskeletal: Reports: Back Pain (SCOLIOSIS, SPINAL DETERIORATION), Other ( COMPARTMENT SYNDROME SURGERY RIGHT FOREARM(? IV glucose side effect)) Cancer: Reports: None Last Menstrual Period: 09/14/17 Other Pertinent Past Medical History: BRAIN CYST- NO SURGERY"ITS TOO DANGEROUS( CT report-arachnoid cyst=benign) - Surgical History General Surgical History: Reports: Orthopedic (COMPARTMENT SYNDROME SURGERY RIGHT FOREARM), Back Surgery (3 BULGING DISCS IN BACK, SPINAL DETERIORATION, SCOLIOSIS), Other (CYST REMOVED FROM TOP OF HEAD) - Family History Family History: Reports: Unknown - Social History Smoking Status: Current every day smoker, Light tobacco smoker Hx Substance Use: No Alcohol Screening: None - Immunizations Tetanus Shot up to Date: Yes Physical Exam - Physical Exam Appearance: Ill-appearing Ill-appearing: Mild Pain Distress: Moderate Neck: Supple Respiratory: Airway patent, Breath sounds clear, Breath sounds equal, Respirations nonlabored Cardiovascular: Tachycardia Musculoskeletal: Limited ROM Skin: Warm, Dry Neurological: Alert, Oriented Psychiatric: Anxious Interpretation - Radiology Interpretation Radiology Interpretation By: ED Physician Radiology Results: Negative Exam Interpreted: Other (Foot and ankel x ray) Critical Care Note - Critical Care Note Total Time (mins): 0 Course - Course Orders, Labs, Meds: Orders Category Date Time Status MELA [ED MELA WRAP] .ONCE EMERGENCY 10/02/17 01:55 Ordered Acetaminophen [Tylenol] MEDS 10/02/17 01:11 Discontinued 1,000 mg PO ONCE STA ANKLE, LEFT MIN 3 VIEWS Stat RADS 10/02/17 01:10 Completed FOOT, LEFT 3 VIEWS Stat RADS 10/02/17 01:10 Completed Medications Discontinued Medications Generic Name Dose Route Start Last Admin Trade Name Freq PRN Reason Stop Dose Admin Acetaminophen 1,000 mg 10/02/17 01:11 10/02/17 01:34 Tylenol PO 10/02/17 01:12 1,000 mg ONCE STA Administration Vital Signs: Temp Pulse Resp BP Pulse Ox 10/02/17 00:50 99 F 111 H 20 120/70 99 Departure - Departure Time of Disposition: 01:45 Disposition: HOME SELF-CARE Discharge Problem: Ankle sprain Qualifiers: Encounter type: initial encounter Involved ligament of ankle: unspecified ligament Laterality: left Qualified Code(s): S93.402A - Sprain of unspecified ligament of left ankle, initial encounter Instructions: Ankle Sprain (ED) Condition: Stable Pt referred to PMD for follow-up: Yes IPMP verified?: No Additional Instructions: Keep foot elevated Take Tylenol as needed for pain Follow up with PCP in 3 days Allergies/Adverse Reactions: Allergies amoxicillin [Amoxicillin] Adverse Reaction (Verified 10/02/17 01:01) amoxicillin trihydrate [From Augmentin] Adverse Reaction (Verified 10/02/17 01: 01) cyclobenzaprine [From Flexeril] Adverse Reaction (Verified 10/02/17 01:01) diazepam [From Valium] Adverse Reaction (Verified 10/02/17 01:01) Penicillins Adverse Reaction (Verified 10/02/17 01:01) potassium clavulanate [From Augmentin] Adverse Reaction (Verified 10/02/17 01:01 ) tramadol Adverse Reaction (Verified 10/02/17 01:01) Home Medications: Ambulatory Orders Insulin Glargine,Hum.rec.anlog [Lantus] 40 unit SQ BID 10/04/12 Insulin Lispro [Humalog] 1 unit SQ DIRECTED PRN 11/24/12 Levothyroxine Sodium [Synthroid] 88 mcg PO DAILY 06/11/13 Pravastatin Sodium [Pravachol] 40 mg PO BEDTIME 01/24/17 Disposition Discussed With: Patient, Family
--- NOTE | 2017-10-02 01:44 | DI ---
EXAM: Three views left foot. HISTORY: Fall with injury. FINDINGS: The bones are intact with no evidence of fracture. The joint spaces are maintained. Ther e is a 0.6 cm calcification along the medial margin of the hind foot consistent with an accessory bon e. There is soft tissue swelling in the forefoot and ankle. Impression: No evidence of fracture. Soft tissue swelling as described.
== END 2017-10-02 01:50 | disposition home or self-care (01) ==
LOC: ED 00:50
DX: S93.402A Sprain of unspecified ligament of left ankle, initial encounter (principal); W19.XXXA Unspecified fall, initial encounter; F17.210 Nicotine dependence, cigarettes, uncomplicated
CPT/HCPCS: 99283

== ENCOUNTER 2017-10-04 21:25 | Outpatient (CLI) ==
[2012-10-04 20:10] VITALS: TEMP 98
== END 2017-10-04 21:49 | disposition short-term general hospital (02) ==
LOC: AMBL 21:25
PROVIDERS: ATTEND Emergency Medicine
DX: M79.605 Pain in left leg (principal); M79.604 Pain in right leg; M79.672 Pain in left foot; M79.671 Pain in right foot

== ENCOUNTER 2017-11-11 14:46 | Outpatient (CLI) ==
[2012-10-04 20:10] VITALS: TEMP 98
[2017-11-11 15:03] VITALS: BMI 23.8
== END 2017-11-11 14:52 | disposition critical access hospital (66) ==
LOC: AMBL 14:46
PROVIDERS: ATTEND Family Medicine
DX: T14.8XXA Other injury of unspecified body region, initial encounter (principal); R10.9 Unspecified abdominal pain; F19.90 Other psychoactive substance use, unspecified, uncomplicated; W57.XXXA Bitten or stung by nonvenomous insect and other nonvenomous arthropods, initial encounter; E11.9 Type 2 diabetes mellitus without complications; E03.9 Hypothyroidism, unspecified; E78.5 Hyperlipidemia, unspecified

== ENCOUNTER 2017-11-11 14:56 | Emergency (ER) ==
[2017-11-11 15:03] VITALS: BP 118/76; TEMP 97.1; BMI 23.8
[2017-11-11] MEDS ORDERED: BENADRYL IM STA (15:06)
--- NOTE | 2017-11-11 15:10 | ED.PDOC ---
General ED Provider: Dr. ALIYAH HELTON-ER Chief Complaint: Non-specific Complaint Stated Complaint: nichole got bug bites---they itch but my blood sugars are doing really well Time Seen by Physician: 15:00 Mode of Arrival: Ambulance Information Source: Patient Exam Limitations: No limitations Primary Care Provider: AVNI VARGAS Nursing and Triage Documentation Reviewed and Agree: Yes Does patient meet sepsis criteria?: No System Inflammatory Response Syndrome: Not Applicable Sepsis Protocol: For patient's 13 years and over: Temp is 96.8 and below OR 101 and greater Pulse >90 BPM Resp >20/minute Acutely Altered Mental Status Are patient's symptoms suggestive of a new infection, such as: -Pneumonia -Skin, Soft Tissue -Endocarditis -UTI -Bone, Joint Infection -Implantable Device -Acute Abdominal Infection -Wound Infection -Meningitis -Blood Stream Catheter Infection -Unknown Skin Complaint Exam - Skin Rash/Itching Complaint/Exam Onset/Duration: 2 days Symptoms Are: Still present Initial Severity: Mild Current Severity: Mild Location: extremities Potential Exposures: Reports: Insect bite Aggravating: Reports: None Alleviating: Reports: None Associated Signs and Symptoms: Denies: Difficulty breathing, Fever, Chills Skin Findings: Present: Lesions Differential Diagnoses: Other Review of Systems - Review Of Systems Constitutional: Reports: No symptoms Eyes: Reports: No symptoms Ears, Nose, Mouth, Throat: Reports: No symptoms Respiratory: Reports: No symptoms Cardiac: Reports: No symptoms GI: Reports: No symptoms : Reports: No symptoms Musculoskeletal: Reports: No symptoms Skin: Reports: Rash Neurological: Reports: No symptoms Endocrine: Reports: No symptoms Hematologic/Lymphatic: Reports: No symptoms All Other Systems: Reviewed and Negative Past Medical History - Past Medical History Previously Healthy: Yes Endocrine: Reports: DM 1, Hypothyroid, Dyslipidemia Cardiovascular: Reports: None Respiratory: Reports: None Hematological: Reports: Anemia Gastrointestinal: Reports: None Genitourinary: Reports: None Neuro/Psych: Reports: Migraine, Anxiety, Depression, Bipolar Disorder, Schizophrenia, Other (pain management, ) Musculoskeletal: Reports: Back Pain (SCOLIOSIS, SPINAL DETERIORATION), Other ( COMPARTMENT SYNDROME SURGERY RIGHT FOREARM(? IV glucose side effect)) Cancer: Reports: None Last Menstrual Period: now Other Pertinent Past Medical History: BRAIN CYST- NO SURGERY"ITS TOO DANGEROUS( CT report-arachnoid cyst=benign) - Surgical History General Surgical History: Reports: Orthopedic (COMPARTMENT SYNDROME SURGERY RIGHT FOREARM), Back Surgery (3 BULGING DISCS IN BACK, SPINAL DETERIORATION, SCOLIOSIS), Other (CYST REMOVED FROM TOP OF HEAD) - Family History Family History: Reports: Unknown - Social History Smoking Status: Current every day smoker, Light tobacco smoker Hx Substance Use: Yes (meth) Alcohol Screening: None Physical Exam - Physical Exam Appearance: Well-appearing Eyes: ROXI, EOMI, Conjunctiva clear ENT: Ears normal, Nose normal, Oropharynx normal Neck: Supple Respiratory: Airway patent Cardiovascular: RRR, Pulses normal, No rub, No murmur GI/: Soft, Nontender, No masses, Bowel sounds normal, No Organomegaly Musculoskeletal: Normal strength, Limited ROM Skin: Warm, Dry, Normal color (notes 3-4 excoriations on arms and legs) Neurological: Sensation intact Psychiatric: Affect appropriate, Mood appropriate Critical Care Note - Critical Care Note Total Time (mins): 0 Course - Course Orders, Labs, Meds: Orders Category Date Time Status Diphenhydramine Inj [Benadryl] MEDS 11/11/17 15:06 Discontinued 50 mg IM ONCE STA Medications Discontinued Medications Generic Name Dose Route Start Last Admin Trade Name Freq PRN Reason Stop Dose Admin Diphenhydramine HCl 50 mg 11/11/17 15:06 Benadryl IM 11/11/17 15:07 ONCE STA Vital Signs: Temp Pulse Resp BP Pulse Ox 11/11/17 14:57 97.1 F L 120 H 20 118/76 99 Departure - Departure Time of Disposition: 15:10 Disposition: HOME SELF-CARE Discharge Problem: Insect bites Qualifiers: Encounter type: initial encounter Qualified Code(s): W57.XXXA - Bitten or stung by nonvenomous insect and other nonvenomous arthropods, initial encounter Instructions: Insect Bite or Sting (ED) Condition: Good Pt referred to PMD for follow-up: Yes IPMP verified?: No Additional Instructions: atarax 25mg qid prn itching #28--f/u with pcp Allergies/Adverse Reactions: Allergies amoxicillin [Amoxicillin] Adverse Reaction (Verified 11/11/17 15:03) amoxicillin trihydrate [From Augmentin] Adverse Reaction (Verified 11/11/17 15: 03) cyclobenzaprine [From Flexeril] Adverse Reaction (Verified 11/11/17 15:03) diazepam [From Valium] Adverse Reaction (Verified 11/11/17 15:03) Penicillins Adverse Reaction (Verified 11/11/17 15:03) potassium clavulanate [From Augmentin] Adverse Reaction (Verified 11/11/17 15:03 ) tramadol Adverse Reaction (Verified 11/11/17 15:03) Home Medications: Ambulatory Orders Insulin Glargine,Hum.rec.anlog [Lantus] 40 unit SQ BID 10/04/12 Insulin Lispro [Humalog] 1 unit SQ DIRECTED PRN 11/24/12 Levothyroxine Sodium [Synthroid] 88 mcg PO DAILY 06/11/13 Pravastatin Sodium [Pravachol] 40 mg PO BEDTIME 01/24/17 Insulin Glargine,Hum.rec.anlog [Basaglar Kwikpen U-100] 30 units SQ DAILY Disposition Discussed With: Patient
== END 2017-11-11 15:40 | disposition home or self-care (01) ==
LOC: ED 14:56
DX: S40.862A Insect bite (nonvenomous) of left upper arm, initial encounter (principal); S40.861A Insect bite (nonvenomous) of right upper arm, initial encounter; S80.862A Insect bite (nonvenomous), left lower leg, initial encounter; S80.861A Insect bite (nonvenomous), right lower leg, initial encounter; W57.XXXA Bitten or stung by nonvenomous insect and other nonvenomous arthropods, initial encounter; F17.210 Nicotine dependence, cigarettes, uncomplicated
CPT/HCPCS: 96372; 99282

== ENCOUNTER 2017-11-13 09:12 | Outpatient (CLI) ==
[2012-10-04 20:10] VITALS: TEMP 98
== END 2017-11-13 09:13 | disposition home or self-care (01) ==
LOC: CAR 09:12
PROVIDERS: ATTEND Nurse Practitioner Family
DX: R00.0 Tachycardia, unspecified (principal); E11.9 Type 2 diabetes mellitus without complications; E78.5 Hyperlipidemia, unspecified
CPT/HCPCS: 36415; 80053; 80061; 83036; 84443; 85025; 93005; 93010

== ENCOUNTER 2017-12-29 02:12 | Emergency (ER) ==
[2017-12-29] MEDS ORDERED: SODIUM CHLORIDE 1,000 ML IV STA (02:22)
[2017-12-29 02:27] VITALS: BMI 26.2
--- NOTE | 2017-12-29 04:42 | CT ---
EXAM: CT scan abdomen pelvis without contrast HISTORY: Abdominal pain COMPARISON: CT scan abdomen pelvis 12/03/2016 FINDINGS: Contiguous axial images obtained from the lung bases to the symphysis pubis without contra st utilizing 3-mm collimation. Sagittal and coronal reconstructions were imaged and reviewed.. The visualized lung bases are clear. The gallbladder is mildly contracted. The liver, pancreas, spleen and adrenal glands have normal unenhanced CT appearance. The abdominal aorta is normal in course and caliber.. Punctate nonobstructive renal calculi are noted bilaterally.. There is no free fluid or inflammatory changes. The uterus and bladder are unremarkable.. There is no CT evidence of appendic itis. Bone windows reveals no evidence of lytic or blastic lesions. IMPRESSION: Nonobstructive bilateral nephrolithiasis.. No evidence of free fluid or inflammatory changes.
[2017-12-29 05:08] VITALS: BP 107/85; TEMP 98.9
--- NOTE | 2017-12-29 06:09 | ED.PDOC ---
General ED Provider: Dr. ALIYAH HELTON-ER Chief Complaint: Abdominal Pain Stated Complaint: i did a bad batch of meth today Time Seen by Physician: 02:35 Mode of Arrival: Wheelchair Information Source: Patient, Other Exam Limitations: No limitations [facility] and Triage Documentation Reviewed and Agree: Yes Does patient meet sepsis criteria?: No System Inflammatory Response Syndrome: Not Applicable Sepsis Protocol: For patient's 13 years and over: Temp is 96.8 and below OR 101 and greater Pulse >90 BPM Resp >20/minute Acutely Altered Mental Status Are patient's symptoms suggestive of a new infection, such as: -Pneumonia -Skin, Soft Tissue -Endocarditis -UTI -Bone, Joint Infection -Implantable Device -Acute Abdominal Infection -Wound Infection -Meningitis -Blood Stream Catheter Infection -Unknown Miscellaneous Complaint Exam - Complex/Multi-System Complaint/Exam Onset/Duration: 2 hrs Symptoms Are: Still present Initial Severity: Mild Current Severity: Mild Associated Signs and Symptoms: Reports: Abdominal pain Recent Echo/LV Function: No JVD Present: No Tachypnea Present: No Stridor Present: No Glascow Coma Scale (see protocol): 15 Meningeal Signs Positive: No Focal Weakness: Present: None Focal Sensory Loss: Present: None Gait: Normal Gag Reflex Present: Yes Skin Findings: Present: Normal findings Joint Swelling Present: No In-Dwelling Device Present: No Quality Indicator For Non-Traumatic Chest Pain/Syncope: EKG Performed Review of Systems - Review Of Systems Constitutional: Reports: No symptoms Eyes: Reports: No symptoms Ears, Nose, Mouth, Throat: Reports: No symptoms Respiratory: Reports: No symptoms Cardiac: Reports: No symptoms GI: Reports: Abdominal pain, Nausea : Reports: No symptoms Musculoskeletal: Reports: No symptoms Skin: Reports: No symptoms Neurological: Reports: No symptoms Endocrine: Reports: No symptoms Hematologic/Lymphatic: Reports: No symptoms All Other Systems: Reviewed and Negative Past Medical History - Past Medical History Previously Healthy: Yes Endocrine: Reports: DM 1, Hypothyroid, Dyslipidemia Cardiovascular: Reports: None Respiratory: Reports: None Hematological: Reports: Anemia Gastrointestinal: Reports: None Genitourinary: Reports: None Neuro/Psych: Reports: Migraine, Anxiety, Depression, Bipolar Disorder, Schizophrenia, Other (pain management, ) Musculoskeletal: Reports: Back Pain (SCOLIOSIS, SPINAL DETERIORATION), Other ( COMPARTMENT SYNDROME SURGERY RIGHT FOREARM(? IV glucose side effect)) Cancer: Reports: None Last Menstrual Period: 12/13/17 Other Pertinent Past Medical History: BRAIN CYST- NO SURGERY"ITS TOO DANGEROUS( CT report-arachnoid cyst=benign) - Surgical History General Surgical History: Reports: Orthopedic (COMPARTMENT SYNDROME SURGERY RIGHT FOREARM), Back Surgery (3 BULGING DISCS IN BACK, SPINAL DETERIORATION, SCOLIOSIS), Other (CYST REMOVED FROM TOP OF HEAD) - Family History Family History: Reports: Unknown - Social History Smoking Status: Current every day smoker, Light tobacco smoker Hx Substance Use: Yes (meth) Alcohol Screening: None - Immunizations Tetanus Shot up to Date: Yes Physical Exam - Physical Exam Appearance: Well-appearing, No pain distress, Well-nourished Eyes: ROXI, EOMI, Conjunctiva clear ENT: Ears normal, Nose normal, Oropharynx normal Neck: Supple Respiratory: Airway patent Cardiovascular: RRR, Pulses normal, No rub, No murmur GI/: Soft, Nontender, No masses, Bowel sounds normal, No Organomegaly Musculoskeletal: Normal strength Skin: Warm Neurological: Sensation intact, Motor intact, Reflexes intact, Cranial nerves intact, Alert, Oriented Psychiatric: Affect appropriate, Mood appropriate, Anxious Interpretation - Radiology Interpretation Radiology Interpretation By: Radiologist Radiology Results: Negative Exam Interpreted: CT Scan - EKG Interpretation Time of EKG #1: 06:08 Rate: Tachy Rhythm: Sinus Ectopy: None [place]: NL ST Segment: Normal Interpretation: sinus tachy Re-Evaluation - Re-Evaluation Time of Re-Evaluation: 06:09 Status: Improved Vital Signs Stable: Yes Pain Level: o Appearance: NAD Lungs: Clear Skin: Warm and Dry Neuro: Alert and Oriented X3 CV: RRR Critical Care Note - Critical Care Note Total Time (mins): 60 Course - Course Hematology/Chemistry: 12/29/17 02:30 12/29/17 02:30 Orders, Labs, Meds: Lab Review 12/29/17 12/29/17 12/29/17 02:21 02:30 02:30 WBC 5.03 RBC 4.11 L Hgb 13.0 Hct 38.8 MCV 94.4 MCH 31.6 H MCHC 33.5 RDW Coeff of Kurt 12.4 Plt Count 324 Immature Gran % (Auto) 0.2 Neut % (Auto) 70.0 Lymph % (Auto) 15.9 [place] % (Auto) 10.3 H Eos % (Auto) 3.0 Baso % (Auto) 0.6 Immature Gran # (Auto) 0.0 Neut # (Auto) 3.5 Lymph # (Auto) 0.8 [place] # (Auto) 0.5 Eos # (Auto) 0.2 Baso # (Auto) 0.0 Puncture Site Lrad O2 Saturation 98.0 ABG pH 7.482 H ABG pCO2 36.5 ABG pO2 96.0 ABG HCO3 27.3 H ABG Total CO2 28 ABG Base Excess 4 H Fausto Test + FiO2 % 21.0 Sodium 138.1 Potassium 4.04 Chloride 99.9 Carbon Dioxide 30.8 H Anion Gap 11.44 BUN 10.8 Creatinine 1.08 Estimated GFR (MDRD) 60.00 BUN/Creatinine Ratio 10.00 Glucose 89.4 Calcium 9.48 Total Bilirubin 0.32 AST 37.0 H ALT 33.2 Alkaline Phosphatase 73.2 Total Creatine Kinase 63.7 Troponin I < 0.012 Total Protein 8.36 H Albumin 4.18 Globulin 4.18 Albumin/Globulin Ratio 1.00 Amylase 79.5 Lipase 36.7 Serum , Qual Urine Color Urine Clarity Urine pH Ur Specific [place] Urine Protein Urine Glucose (UA) Urine Ketones Urine Blood Urine Nitrite Urine Bilirubin Urine Urobilinogen Ur Leukocyte Esterase Salicylate Level mg/dL < 1.00 Urine Opiates Screen Ur Oxycodone Screen Urine Methadone Screen Ur Propoxyphene Screen Acetaminophen < 10.0 L Ur Barbiturates Screen U Tricyclic Antidepress Ur Phencyclidine Scrn Ur Amphetamine Screen U Methamphetamines Scrn U Benzodiazepines Scrn Urine Cocaine Screen U Cannabinoids Screen Plasma/Serum Alcohol < 10.0 12/29/17 12/29/17 12/29/17 02:30 03:00 03:00 WBC RBC Hgb Hct MCV MCH MCHC RDW Coeff of Kurt Plt Count Immature Gran % (Auto) Neut % (Auto) Lymph % (Auto) [place] % (Auto) Eos % (Auto) Baso % (Auto) Immature Gran # (Auto) Neut # (Auto) Lymph # (Auto) [place] # (Auto) Eos # (Auto) Baso # (Auto) Puncture Site O2 Saturation ABG pH ABG pCO2 ABG pO2 ABG HCO3 ABG Total CO2 ABG Base Excess Fausto Test FiO2 % Sodium Potassium Chloride Carbon Dioxide Anion Gap BUN Creatinine Estimated GFR (MDRD) BUN/Creatinine Ratio Glucose Calcium Total Bilirubin AST ALT Alkaline Phosphatase Total Creatine Kinase Troponin I Total Protein Albumin Globulin Albumin/Globulin Ratio Amylase Lipase Serum , Qual Negative Urine Color Yellow Urine Clarity Clear Urine pH 8.5 Ur Specific [place] 1.015 Urine Protein Negative Urine Glucose (UA) Negative Urine Ketones Negative Urine Blood Negative Urine Nitrite Negative Urine Bilirubin Negative Urine Urobilinogen 0.2 Ur Leukocyte Esterase Negative Salicylate Level mg/dL Urine Opiates Screen Positive Ur Oxycodone Screen Negative Urine Methadone Screen Negative Ur Propoxyphene Screen Negative Acetaminophen Ur Barbiturates Screen Negative U Tricyclic Antidepress Negative Ur Phencyclidine Scrn Negative Ur Amphetamine Screen Negative U Methamphetamines Scrn Positive U Benzodiazepines Scrn Negative Urine Cocaine Screen Negative U Cannabinoids Screen Negative Plasma/Serum Alcohol Orders Category Date Time Status ABG DRAW REQUEST Stat CARDIO 12/29/17 02:21 Completed EKG-(ED ONLY) Stat CARDIO 12/29/17 02:21 Completed ED IV/MEDIPORT/POWERPORT .ONCE EMERGENCY 12/29/17 02:22 Active Poison Control [ED POISON CONTROL CONTACTED] .ONCE EMERGENCY 12/29/17 02:22 Active ABG Stat LAB 12/29/17 02:21 Completed AMYLASE Stat LAB 12/29/17 02:30 Completed BLOOD ALCOHOL Stat LAB 12/29/17 02:30 Completed CBC W/ AUTO DIFF Stat LAB 12/29/17 02:30 Completed COMPREHENSIVE METABOLIC PANEL Stat LAB 12/29/17 02:30 Completed CREATINE KINASE Stat LAB 12/29/17 02:30 Completed LIPASE Stat LAB 12/29/17 02:30 Completed SALICYLATE Stat LAB 12/29/17 02:30 Completed SERUM Stat LAB 12/29/17 02:30 Completed TROPONIN I Stat LAB 12/29/17 02:30 Completed TYLENOL LEVEL [ACETAMINOPHEN] Stat LAB 12/29/17 02:30 Completed URINALYSIS C & S IF INDICATED Stat LAB 12/29/17 03:00 Completed URINE DRUG SCREEN (RAPID FOR ED) [DRUG SCREEN, URINE, LAB 12/29/17 03:00 Completed RAPID] Stat 0.9 % Sodium Chloride [Saline Flush] MEDS 12/29/17 02:22 Ordered 1 syr IVF PRN PRN Sodium Chloride 0.9% [Sodium Chloride] 1,000 ml MEDS 12/29/17 02:22 Active IV 100 mls/hr CT ABDOMEN/PELVIS WO CONTRAST Stat RADS 12/29/17 02:23 Completed Medications Generic Name Dose Route Start Last Admin Trade Name Freq PRN Reason Stop Dose Admin Sodium Chloride 1,000 mls @ 100 mls/hr 12/29/17 02:22 12/29/17 03:22 Sodium Chloride IV 12/29/17 12:21 100 mls/hr .Q10H STA Administration Sodium Chloride 1 syr 12/29/17 02:22 12/29/17 03:22 Saline Flush IVF 1 syr PRN PRN Administration To flush IV poison control indicated we do not have to admit or observe Vital Signs: Temp Pulse Resp BP Pulse Ox 12/29/17 05:07 98.9 F 88 20 107/85 99 12/29/17 02:13 99 F 123 H 22 124/77 98 Departure - Departure Time of Disposition: 06:10 Disposition: HOME SELF-CARE Discharge Problem: Substance abuse Instructions: Polysubstance Abuse (ED) Condition: Fair Pt referred to PMD for follow-up: Yes IPMP verified?: No Additional Instructions: return prn Allergies/Adverse Reactions: Allergies amoxicillin [Amoxicillin] Adverse Reaction (Verified 12/29/17 02:24) amoxicillin trihydrate [From Augmentin] Adverse Reaction (Verified 12/29/17 02: 24) cyclobenzaprine [From Flexeril] Adverse Reaction (Verified 12/29/17 02:24) diazepam [From Valium] Adverse Reaction (Verified 12/29/17 02:24) Penicillins Adverse Reaction (Verified 12/29/17 02:24) potassium clavulanate [From Augmentin] Adverse Reaction (Verified 12/29/17 02:24 ) tramadol Adverse Reaction (Verified 12/29/17 02:24) Home Medications: Ambulatory Orders Insulin Glargine,Hum.rec.anlog [Lantus] 40 unit SQ BID 10/04/12 Insulin Lispro [Humalog] 1 unit SQ DIRECTED PRN 11/24/12 Disposition Discussed With: Patient, Family
== END 2017-12-29 06:17 | disposition home or self-care (01) ==
LOC: ED 02:12
DX: F19.10 Other psychoactive substance abuse, uncomplicated (principal); R10.9 Unspecified abdominal pain; R11.0 Nausea; E10.9 Type 1 diabetes mellitus without complications; E03.9 Hypothyroidism, unspecified; E78.5 Hyperlipidemia, unspecified; D64.9 Anemia, unspecified; F17.210 Nicotine dependence, cigarettes, uncomplicated; Z79.4 Long term (current) use of insulin
CPT/HCPCS: 36415; 80053; 80306; 80307; 81001; 82150; 82550; 82803; 83690; 84484; 84703; 85025; 93005; 93010; 96360; 96361; 99283

== ENCOUNTER 2018-01-21 11:26 | Outpatient (CLI) ==
[2012-10-04 20:10] VITALS: TEMP 98
--- NOTE | 2018-01-21 13:35 | DI ---
Exam: Two views of the chest. Comparison: 10/30/2016. Reason for exam: Shortness of breath. FINDINGS: No pneumothorax, pleural effusion, or focal consolidation. The cardiac silhouette is not enlarged. The imaged osseous structures appear grossly unremarkable without acute fracture. Impression: No acute cardiopulmonary process.
== END 2018-01-21 11:27 | disposition home or self-care (01) ==
LOC: CAR 11:26
PROVIDERS: ATTEND Nurse Practitioner Family
DX: E03.9 Hypothyroidism, unspecified (principal); R79.89 Other specified abnormal findings of blood chemistry; R06.02 Shortness of breath; R07.9 Chest pain, unspecified
CPT/HCPCS: 36415; 83880; 84443; 93005; 93010

== ENCOUNTER 2018-03-06 08:22 | Outpatient (CLI) ==
[2012-10-04 20:10] VITALS: TEMP 98
== END 2018-03-06 08:23 | disposition home or self-care (01) ==
LOC: LAB 08:22
PROVIDERS: ATTEND Nurse Practitioner Family
DX: E03.9 Hypothyroidism, unspecified (principal); Z91.89 Other specified personal risk factors, not elsewhere classified; E11.9 Type 2 diabetes mellitus without complications
CPT/HCPCS: 36415; 80053; 80306; 80307; 83036; 84443

== ENCOUNTER 2018-09-14 15:11 | Emergency (ER) | payer OTHER ==
[2018-09-14 15:17] VITALS: BP 120/75; TEMP 97.7; BMI 25.0
--- NOTE | 2018-09-14 15:51 | ED.PDOC ---
General ED Provider: Dr. ZAY HEALY Chief Complaint: Bite Stated Complaint: BITE Time Seen by Physician: 15:15 Mode of Arrival: Walk-In Information Source: Patient Exam Limitations: No limitations Primary Care Provider: DIRK MARR Nursing and Triage Documentation Reviewed and Agree: Yes Does patient meet sepsis criteria?: No System Inflammatory Response Syndrome: Not Applicable Sepsis Protocol: For patient's 13 years and over: Temp is 96.8 and below OR 101 and greater Pulse >90 BPM Resp >20/minute Acutely Altered Mental Status Are patient's symptoms suggestive of a new infection, such as: -Pneumonia -Skin, Soft Tissue -Endocarditis -UTI -Bone, Joint Infection -Implantable Device -Acute Abdominal Infection -Wound Infection -Meningitis -Blood Stream Catheter Infection -Unknown Skin Complaint Exam - Skin Rash/Itching Complaint/Exam Onset/Duration: 1 DAY Symptoms Are: Still present Initial Severity: Mild Current Severity: Mild Potential Exposures: Reports: Unknown Aggravating: Reports: None Alleviating: Reports: None Associated Signs and Symptoms: Denies: Difficulty breathing, Fever, Chills Related History: Similar episode Skin Findings: Present: Vesicles Differential Diagnoses: Other (INSECT BITE) Review of Systems - Review Of Systems Constitutional: Reports: No symptoms Eyes: Reports: No symptoms Ears, Nose, Mouth, Throat: Reports: No symptoms Respiratory: Reports: No symptoms Cardiac: Reports: No symptoms GI: Reports: No symptoms : Reports: No symptoms Musculoskeletal: Reports: No symptoms Skin: Reports: Rash Neurological: Reports: No symptoms Endocrine: Reports: No symptoms Hematologic/Lymphatic: Reports: No symptoms All Other Systems: Reviewed and Negative Past Medical History - Past Medical History Previously Healthy: Yes Endocrine: Reports: DM 1, Hypothyroid, Dyslipidemia Cardiovascular: Reports: None Respiratory: Reports: None Hematological: Reports: Anemia Gastrointestinal: Reports: None Genitourinary: Reports: None Neuro/Psych: Reports: Migraine, Anxiety, Depression, Bipolar Disorder, Schizophrenia, Other (pain management, ) Musculoskeletal: Reports: Back Pain (SCOLIOSIS, SPINAL DETERIORATION), Other ( COMPARTMENT SYNDROME SURGERY RIGHT FOREARM(? IV glucose side effect)) Cancer: Reports: None Last Menstrual Period: 09/01 Other Pertinent Past Medical History: BRAIN CYST- NO SURGERY"ITS TOO DANGEROUS( CT report-arachnoid cyst=benign) - Surgical History General Surgical History: Reports: Orthopedic (COMPARTMENT SYNDROME SURGERY RIGHT FOREARM), Back Surgery (3 BULGING DISCS IN BACK, SPINAL DETERIORATION, SCOLIOSIS), Other (CYST REMOVED FROM TOP OF HEAD) - Family History Family History: Reports: Unknown - Social History Smoking Status: Current some day smoker Hx Substance Use: No Alcohol Screening: None - Immunizations Tetanus Shot up to Date: Yes Physical Exam - Physical Exam Appearance: Well-appearing, No pain distress, Well-nourished Eyes: ROXI, EOMI, Conjunctiva clear ENT: Ears normal, Nose normal, Oropharynx normal Respiratory: Airway patent, Breath sounds clear, Breath sounds equal, Respirations nonlabored Cardiovascular: RRR, Pulses normal, No rub, No murmur GI/: Soft, Nontender, No masses, Bowel sounds normal, No Organomegaly Musculoskeletal: Normal strength, ROM intact, No edema, No calf tenderness Skin: Warm, Dry (RASH MACULOPAPULAR ) Neurological: Sensation intact, Motor intact, Reflexes intact, Cranial nerves intact, Alert, Oriented Psychiatric: Affect appropriate, Mood appropriate Critical Care Note - Critical Care Note Total Time (mins): 0 Course - Course Vital Signs: Temp Pulse Resp BP Pulse Ox 09/14/18 15:12 97.7 F 101 H 16 120/75 98 Departure - Departure Time of Disposition: 15:50 Disposition: HOME SELF-CARE Discharge Problem: Insect bite Instructions: Insect Bite or Sting (ED) Condition: Good Pt referred to PMD for follow-up: Yes IPMP verified?: No Allergies/Adverse Reactions: Allergies doxycycline Allergy (Verified 09/14/18 15:20) unknown amoxicillin [Amoxicillin] Adverse Reaction (Verified 09/14/18 15:20) amoxicillin trihydrate [From Augmentin] Adverse Reaction (Verified 09/14/18 15: 20) cyclobenzaprine [From Flexeril] Adverse Reaction (Verified 09/14/18 15:20) diazepam [From Valium] Adverse Reaction (Verified 09/14/18 15:20) Penicillins Adverse Reaction (Verified 09/14/18 15:20) potassium clavulanate [From Augmentin] Adverse Reaction (Verified 09/14/18 15:20 ) tramadol Adverse Reaction (Verified 09/14/18 15:20) Home Medications: Ambulatory Orders Insulin Glargine,Hum.rec.anlog [Lantus] 40 unit SQ BID 10/04/12
== END 2018-09-14 16:01 | disposition home or self-care (01) ==
LOC: ED 15:11
DX: T14.8XXA Other injury of unspecified body region, initial encounter (principal); R21 Rash and other nonspecific skin eruption; W57.XXXA Bitten or stung by nonvenomous insect and other nonvenomous arthropods, initial encounter; F17.210 Nicotine dependence, cigarettes, uncomplicated
CPT/HCPCS: 99282

== ENCOUNTER 2023-06-13 06:37 | Inpatient (IN) ==
--- NOTE | 2023-06-13 06:58 | ED.PDOC ---
General <ZAY MARTINS MD - Last Filed: 06/13/23 07:10> ED Provider: Dr. ZAY MARTINS MD Chief Complaint: Nausea/Vomiting Stated Complaint: Patient with a history of type 2 diabetes states she was diagnosed with influenza B 2 days ago and complains of frequent episodes of emesis over the past 2 days states that she is unable to tolerate oral fluids. Patient denies diarrhea. Patient complains of crampy generalized abdominal pain associate with fever chills. Denies urinary symptoms. Time Seen by Provider: 06/13/23 06:50 Mode of Arrival: Ambulance Information Source: Patient Exam Limitations: Clinical condition Primary Care Provider: KEENAN BRIDGES APRN Nursing and Triage Documentation Reviewed and Agree: Yes What is Opioid Naive?: *Opioid Naive implies the patient is not already taking opioids or not chronically receiving opioids on a daily basis. *PRN dosing is not "usually" associated with tolerance. *Patients are at higher risk of over-sedation and aspiration. What is Opioid Tolerant?: *Opioid Tolerance implies less than the expected response to an opioid. *Acquired tolerance is defined by the patient taking 60mg of oral morphine daily (or equianalgesic dose of another opioid) for 1 week or more. *Often associated with chronic pain. *May take more than usual dose to achieve desired pain control. Review of Systems <ZAY MARTINS MD - Last Filed: 06/13/23 07:10> Review Of Systems Constitutional: Reports Fever and Weakness Eyes: Reports No symptoms Ears, Nose, Mouth, Throat: Reports No symptoms Respiratory: Reports No symptoms Cardiac: Reports Chest pain (Substernal burning discomfort) GI: Reports Abdominal pain, Nausea, Poor appetite, Poor fluid intake and Vomiting : Reports No symptoms Musculoskeletal: Reports No symptoms Skin: Reports No symptoms Neurological: Reports No symptoms Endocrine: Reports No symptoms All Other Systems: Reviewed and Negative PFSH <ZAY MARTINS MD - Last Filed: 06/13/23 07:10> Medical History Former smoker quit 10/27/2021 Z87.891 - Personal history of nicotine dependence (ICD-10) Bleeding of eye H57.89 - Other specified disorders of eye and adnexa (ICD-10) Bulging lumbar disc M51.26 - Other intervertebral disc displacement, lumbar region (ICD-10) High cholesterol E78.00 - Pure hypercholesterolemia, unspecified (ICD-10) Diabetes mellitus E11.9 - Type 2 diabetes mellitus without complications (ICD-10) 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 Mother No problems noted. Other No known health problems Social History Smoking and tobacco status: Former smoker Quit date: 10/27/21 Tobacco: How many years used: 18 Quit status: has quit before Second hand smoke exposure: Yes Alcohol intake: former Substance use type: former substance user Date of last use: former methamphetamine abuse, clean 4 years as of 2021 Lia/confucianism: None Special lia needs: No Agree to transfusion: Yes Adopted: No Caregiver/support person: Yes Household members: other Other Household Members: mom Housing: other Marital status: D Lives independently: Yes Number of children: 0 Highest education level completed: high school graduate Financial difficulty paying for basics: not applicable service: No Current occupational status: unemployed and disabled Current occupational exposures/hazards: No Pets and animals: Yes (4 dogs ) Leisure activites: fishing History of recent travel: No Sexually active: No Do you think of yourself as: lesbian/lea/homosexual Current gender identity: female Seatbelt use: always Helmet use: No Drives intoxicated or rides with intoxicated local [place] truck driver: No Water heater temperature set < 120 degrees: Yes Working smoke detector in home: Yes Fire extinguisher in home: Yes Carbon monoxide detector in home: Yes Firearms in home: No Additional social history: pt states that their heat is out and has been for 3 months landlord refuses to fix it. Pt states that ruth are and back door from foundation. Surgical History cyst removal on back cyst removal head and back Female Reproductive History Menstrual Hx Hysterectomy: No Hx Tubal Ligation: No Physical Exam <ZAY MARTINS MD - Last Filed: 06/13/23 07:10> Physical Exam Appearance: Reports Ill-appearing Ill-appearing: Moderate Pain Distress: Mild Eyes: Reports ROXI, EOMI and Conjunctiva clear ENT: Reports Ears normal, Nose normal and Oropharynx normal Neck: Supple Respiratory: Reports Airway patent, Breath sounds clear, Breath sounds equal and Breath sounds diminished Cardiovascular: Reports RRR, Pulses normal, No murmur and Tachycardia GI/: Reports Soft, No masses, Bowel sounds normal and Tender (Diffusely tender there is epigastric umbilical and bilateral lower quadrant tenderness there is no guarding there is no rebound tenderness there is no palpable mass noted.) Musculoskeletal: Reports Normal strength Skin: Reports Warm, Dry and Normal color Neurological: Reports Sensation intact, Motor intact and Reflexes intact Psychiatric: Reports Affect appropriate and Mood appropriate Interpretation <KOFFI TREJO DO - Last Filed: 06/13/23 19:35> EKG Interpretation EKG Interpretation By: ED Physician Time of EKG #1: 07:13 Rate: Tachy Rhythm: Sinus Ectopy: None [place]: [place] ST Segment: Normal Interpretation: No obvious signs of acute ischemia. Tachycardia. Limits interpretation Procedures <KOFFI TREJO DO - Last Filed: 06/13/23 19:35> IV/Art Line Insertion Location: R antecubital fossa. US guided. Type of Line: Peripheral IV Invasive Line/IV Catheter Gauge: 20 Number of Attempts: 1 Blood Return Positive: Yes Invasive Line/IV Flushes Without Difficulty: Yes Critical Care Note <KOFFI TREJO DO - Last Filed: 06/13/23 19:35> Critical Care Note Total Critical Care Time (mins): 60 Comments: Patient presents with tachycardia and influenza. Laboratory workup confirms diabetic ketoacidosis. Critical condition that can be life-threatening. Required prompt recognition, fluid resuscitation, insulin drip, cardiac monitoring. Course <ZAY MARTINS MD - Last Filed: 06/13/23 07:10> Course 06/13/23 07:10 06/13/23 16:03 Orders, Labs, Meds: Lab Review 06/13/23 06/13/23 06/13/23 07:10 07:37 08:06 WBC 8.71 RBC 3.73 L Hgb 11.6 L Hct 38.5 MCV 103.2 H MCH 31.1 H MCHC 30.1 L RDW Coeff of Kurt 12.7 Plt Count 334 Immature Gran % (Auto) 0.2 Neut % (Auto) 92.4 H Lymph % (Auto) 4.1 L [place] % (Auto) 3.2 Eos % (Auto) 0.0 Baso % (Auto) 0.1 Neut # (Auto) 8.0 H Lymph # (Auto) 0.4 L [place] # (Auto) 0.3 L Eos # (Auto) 0.0 Baso # (Auto) 0.0 Immature Gran # (Auto) 0.0 Sodium 135.2 Potassium 5.29 H Chloride 104.0 Carbon Dioxide < 5.0 L* D Anion Gap 31.96961 BUN 13.6 Creatinine 1.34 H Estimated GFR (MDRD) 45.00 BUN/Creatinine Ratio 10.14 Glucose 514.4 H* Lactic Acid 1.61 Calcium 9.90 Magnesium 1.69 Total Bilirubin 0.52 AST 28.0 ALT 23.2 Alkaline Phosphatase 68.0 Total Creatine Kinase 46.4 Troponin I 0.175 H Total Protein 8.06 Albumin 4.85 Globulin 3.21 Albumin/Globulin Ratio 1.51 Lipase 13.9 L Urine Color Urine Clarity Urine pH Ur Specific [place] Urine Protein Urine Glucose (UA) Urine Ketones Urine Blood Urine Nitrite Urine Bilirubin Urine Urobilinogen Ur Leukocyte Esterase Urine Microscopic WBC Ur Squamous Epith Cells Urine Test Urine Opiates Screen Ur Oxycodone Screen Urine Methadone Screen Ur Barbiturates Screen U Tricyclic Antidepress Ur Phencyclidine Scrn Ur Amphetamine Screen U Methamphetamines Scrn U Benzodiazepines Scrn Urine Cocaine Screen U Cannabinoids Screen Acetone, Qual Small Influ A Molecular Assay Negative by naat Influ B Molecular Assay Positive by naat H SARS CoV-2 RNA Rapid JOSE Negative 06/13/23 08:30 WBC RBC Hgb Hct MCV MCH MCHC RDW Coeff of Kurt Plt Count Immature Gran % (Auto) Neut % (Auto) Lymph % (Auto) [place] % (Auto) Eos % (Auto) Baso % (Auto) Neut # (Auto) Lymph # (Auto) [place] # (Auto) Eos # (Auto) Baso # (Auto) Immature Gran # (Auto) Sodium Potassium Chloride Carbon Dioxide Anion Gap BUN Creatinine Estimated GFR (MDRD) BUN/Creatinine Ratio Glucose Lactic Acid Calcium Magnesium Total Bilirubin AST ALT Alkaline Phosphatase Total Creatine Kinase Troponin I Total Protein Albumin Globulin Albumin/Globulin Ratio Lipase Urine Color Yellow Urine Clarity Clear Urine pH 5.5 Ur Specific [place] 1.020 Urine Protein Trace H Urine Glucose (UA) 2+ H Urine Ketones 4+ Urine Blood Negative Urine Nitrite Negative Urine Bilirubin 1+ H Urine Urobilinogen 0.2 Ur Leukocyte Esterase Negative Urine Microscopic WBC 2-5 Ur Squamous Epith Cells 5-10 Urine Test Negative Urine Opiates Screen Positive H Ur Oxycodone Screen Negative Urine Methadone Screen Negative Ur Barbiturates Screen Negative U Tricyclic Antidepress Negative Ur Phencyclidine Scrn Negative Ur Amphetamine Screen Negative U Methamphetamines Scrn Negative U Benzodiazepines Scrn Negative Urine Cocaine Screen Negative U Cannabinoids Screen Negative Acetone, Qual Influ A Molecular Assay Influ B Molecular Assay SARS CoV-2 RNA Rapid JOSE Orders Category Date Time Status ADMIT PATIENT INPATIENT .TO [facility] (MONITORED BED) ADMISSION 06/13/23 08:27 Completed EKG-(ED ONLY) Stat CARDIO 06/13/23 07:00 Completed BLOOD GLUCOSE MONITORING (MED/SURG) Q1HR CARE 06/13/23 08:00 Completed NPO REMINDER: IMAGING ONCE CARE 06/13/23 07:01 Completed TELEMETRY MONITORING TELE CARE 06/13/23 08:27 Completed ACETONE, QUALITATIVE Stat LAB 06/13/23 07:10 Completed CBC W/ AUTO DIFF Stat LAB 06/13/23 07:10 Completed CMP [COMPREHENSIVE METABOLIC PANEL] Stat LAB 06/13/23 07:10 Completed COVID [SARS COV-2 RNA RAPID JOSE] Stat LAB 06/13/23 07:37 Completed CREATINE KINASE Stat LAB 06/13/23 08:06 Completed DRUG SCREEN (RAPID FOR ED) [DRUG SCREEN, URINE, RAPID] LAB 06/13/23 08:30 Completed Stat FLU A & B MOLECULAR [FLU A/B MOLECULAR] Stat LAB 06/13/23 07:37 Completed LACTIC ACID Stat LAB 06/13/23 07:10 Completed LIPASE Stat LAB 06/13/23 07:10 Completed MAGNESIUM Stat LAB 06/13/23 07:10 Completed TEST URINE [URINE ] Stat LAB 06/13/23 08:30 Completed TROPONIN I Stat LAB 06/13/23 07:10 Completed URINALYSIS C & S IF INDICATED Stat LAB 06/13/23 08:30 Completed Insulin Regular in 0.9 % NaCl [Myxredlin 100 Unit/100 Meds 06/13/23 08:00 Discontinued ml Bag] 100 unit in 100 ml IV TITRATION Ondansetron HCl/Pf [Zofran 4 mg/2 ml] Meds 06/13/23 06:58 Discontinued 4 mg IVP ONCE ONE Ondansetron [Zofran Odt] Meds 06/13/23 07:21 Discontinued 4 mg PO ONCE STA Pantoprazole Sodium [Protonix] Meds 06/13/23 06:58 Discontinued 40 mg IVP ONCE ONE Sodium Chloride 0.9% [Sodium Chloride] 1,000 ml Meds 06/13/23 06:58 Discontinued IV BOLUS Medications Discontinued Medications Generic Name Dose Route Start Last Admin Trade Name Freq PRN Reason Stop Dose Admin Acetaminophen 650 mg 06/13/23 09:37 Acetaminophen 325 Mg Tablet PO Q4H PRN Pain Benzocaine/Menthol 1 lozenge 06/13/23 11:56 06/13/23 14:23 Benzocaine/Menth/Cetylpyrd Cl 1 Lozenge MUCOUSMEMB 1 lozenge PRN PRN Administration SORE THROAT Heparin Sodium (Porcine) 5,000 units 06/13/23 17:18 06/13/23 18:36 Heparin Sodium,Porcine 5,000 Units/Ml Syringe IVP 06/13/23 17:19 5,000 units ONCE ONE Administration Sodium Chloride 1,000 mls @ 1,000 mls/hr 06/13/23 06:58 06/13/23 10:55 Sodium Chloride IV 06/13/23 07:57 Infused BOLUS ONE Infusion INSULIN REGULAR IN 0.9 % NACL 100 unit in 100 mls @ 6.645 mls/hr 06/13/23 08:00 06/13/23 17:30 Myxredlin 100 Unit/100 Ml Bag IV Infused TITRATION BLESSING Titration Protocol 0.1 UNIT/KG/HR Sodium Chloride 1,000 mls @ 250 mls/hr 06/13/23 10:00 06/13/23 13:38 Sodium Chloride IV Infused .Q4H BLESSING Infusion Potassium Chloride/Dextrose/Sod Cl 1,000 mls @ 250 mls/hr 06/13/23 13:00 06/13/23 17:51 D5%-1/2ns-Kcl 20 Meq/L Iv Vianey IV 250 mls/hr .Q4H BLESSING Administration Heparin Sodium/Sodium Chloride 25,000 unit in 250 mls @ 7.816 mls/hr 06/13/23 17:30 Heparin 25,000 Unit/250 Ml Nacl IV TITRATION BLESSING Protocol 12 UNIT/KG/HR INSULIN REGULAR IN 0.9 % NACL 100 unit in 100 mls @ 6.514 mls/hr 06/13/23 17:35 06/13/23 17:50 Myxredlin 100 Unit/100 Ml Bag IV 0.1 unit/kg/hr TITRATION BLESSING 7.5 mls/hr Administration Protocol 0.1 UNIT/KG/HR Lorazepam 1 mg 06/13/23 09:48 06/13/23 09:59 Lorazepam Inj 2 Mg/Ml Vial IVP 06/13/23 09:49 1 mg ONCE ONE Administration Metoclopramide HCl 10 mg 06/13/23 08:46 06/13/23 09:20 Metoclopramide Hcl 10 Mg/2 Ml IVP 06/13/23 08:47 10 mg ONCE STA Administration Metoclopramide HCl 5 mg 06/13/23 09:37 Metoclopramide Hcl 10 Mg/2 Ml IVP Q6H PRN Nausea / Vomiting Metoprolol Tartrate 5 mg 06/13/23 11:06 06/13/23 11:36 Metoprolol Tartrate 5 Mg/5 Ml Vial IVP 06/13/23 11:07 5 mg ONCE ONE Administration Morphine Sulfate 2 mg 06/13/23 09:47 06/13/23 10:00 Morphine Sulfate 2 Mg/Ml Syringe IVP 2 mg Q6H PRN Administration Pain Ondansetron HCl 4 mg 06/13/23 06:58 06/13/23 07:59 Ondansetron Hcl/Pf 4 Mg/2 Ml Sdv IVP 06/13/23 06:59 4 mg ONCE ONE Administration Ondansetron HCl 4 mg 06/13/23 07:21 06/13/23 07:35 Ondansetron Hcl 4 Mg Tab.Rapdis PO 06/13/23 07:22 4 mg ONCE STA Administration Ondansetron HCl 4 mg 06/13/23 09:37 06/13/23 18:34 Ondansetron Hcl/Pf 4 Mg/2 Ml Sdv IVP 4 mg Q6H PRN Administration Nausea / Vomiting Pantoprazole Sodium 40 mg 06/13/23 06:58 06/13/23 07:59 Pantoprazole Sodium 40 Mg Vial IVP 06/13/23 06:59 40 mg ONCE ONE Administration Phenol/Menthol 1 spray 06/13/23 09:53 06/13/23 14:23 Phenol 1 [place] Btl MM 1 spray Q2H PRN Administration SORE THROAT Vital Signs: Temp Pulse Resp BP Pulse Ox 06/13/23 08:13 142 H 18 06/13/23 06:38 97.9 F 132 H 20 144/74 H 99 <KOFFI TREJO, - Last Filed: 06/13/23 19:35> Course Orders, Labs, Meds: Lab Review 06/13/23 06/13/23 06/13/23 07:10 07:37 08:06 WBC 8.71 RBC 3.73 L Hgb 11.6 L Hct 38.5 MCV 103.2 H MCH 31.1 H MCHC 30.1 L RDW Coeff of Kurt 12.7 Plt Count 334 Immature Gran % (Auto) 0.2 Neut % (Auto) 92.4 H Lymph % (Auto) 4.1 L [place] % (Auto) 3.2 Eos % (Auto) 0.0 Baso % (Auto) 0.1 Neut # (Auto) 8.0 H Lymph # (Auto) 0.4 L [place] # (Auto) 0.3 L Eos # (Auto) 0.0 Baso # (Auto) 0.0 Immature Gran # (Auto) 0.0 Sodium 135.2 Potassium 5.29 H Chloride 104.0 Carbon Dioxide < 5.0 L* D Anion Gap 31.23068 BUN 13.6 Creatinine 1.34 H Estimated GFR (MDRD) 45.00 BUN/Creatinine Ratio 10.14 Glucose 514.4 H* Lactic Acid 1.61 Calcium 9.90 Magnesium 1.69 Total Bilirubin 0.52 AST 28.0 ALT 23.2 Alkaline Phosphatase 68.0 Total Creatine Kinase 46.4 Troponin I 0.175 H Total Protein 8.06 Albumin 4.85 Globulin 3.21 Albumin/Globulin Ratio 1.51 Lipase 13.9 L Urine Color Urine Clarity Urine pH Ur Specific [place] Urine Protein Urine Glucose (UA) Urine Ketones Urine Blood Urine Nitrite Urine Bilirubin Urine Urobilinogen Ur Leukocyte Esterase Urine Microscopic WBC Ur Squamous Epith Cells Urine Test Urine Opiates Screen Ur Oxycodone Screen Urine Methadone Screen Ur Barbiturates Screen U Tricyclic Antidepress Ur Phencyclidine Scrn Ur Amphetamine Screen U Methamphetamines Scrn U Benzodiazepines Scrn Urine Cocaine Screen U Cannabinoids Screen Acetone, Qual Small Influ A Molecular Assay Negative by naat Influ B Molecular Assay Positive by naat H SARS CoV-2 RNA Rapid JOSE Negative 06/13/23 08:30 WBC RBC Hgb Hct MCV MCH MCHC RDW Coeff of Kurt Plt Count Immature Gran % (Auto) Neut % (Auto) Lymph % (Auto) [place] % (Auto) Eos % (Auto) Baso % (Auto) Neut # (Auto) Lymph # (Auto) [place] # (Auto) Eos # (Auto) Baso # (Auto) Immature Gran # (Auto) Sodium Potassium Chloride Carbon Dioxide Anion Gap BUN Creatinine Estimated GFR (MDRD) BUN/Creatinine Ratio Glucose Lactic Acid Calcium Magnesium Total Bilirubin AST ALT Alkaline Phosphatase Total Creatine Kinase Troponin I Total Protein Albumin Globulin Albumin/Globulin Ratio Lipase Urine Color Yellow Urine Clarity Clear Urine pH 5.5 Ur Specific [place] 1.020 Urine Protein Trace H Urine Glucose (UA) 2+ H Urine Ketones 4+ Urine Blood Negative Urine Nitrite Negative Urine Bilirubin 1+ H Urine Urobilinogen 0.2 Ur Leukocyte Esterase Negative Urine Microscopic WBC 2-5 Ur Squamous Epith Cells 5-10 Urine Test Negative Urine Opiates Screen Positive H Ur Oxycodone Screen Negative Urine Methadone Screen Negative Ur Barbiturates Screen Negative U Tricyclic Antidepress Negative Ur Phencyclidine Scrn Negative Ur Amphetamine Screen Negative U Methamphetamines Scrn Negative U Benzodiazepines Scrn Negative Urine Cocaine Screen Negative U Cannabinoids Screen Negative Acetone, Qual Influ A Molecular Assay Influ B Molecular Assay SARS CoV-2 RNA Rapid JOSE Orders Category Date Time Status [facility] ADMISSION 06/13/23 08:27 Completed EKG-(ED ONLY) Stat CARDIO 06/13/23 07:00 Completed BLOOD GLUCOSE MONITORING (MED/SURG) Q1HR CARE 06/13/23 08:00 Completed NPO REMINDER: IMAGING ONCE CARE 06/13/23 07:01 Completed TELEMETRY MONITORING TELE CARE 06/13/23 08:27 Completed ACETONE, QUALITATIVE Stat LAB 06/13/23 07:10 Completed CBC W/ AUTO DIFF Stat LAB 06/13/23 07:10 Completed CMP [COMPREHENSIVE METABOLIC PANEL] Stat LAB 06/13/23 07:10 Completed COVID [SARS COV-2 RNA RAPID JOSE] Stat LAB 06/13/23 07:37 Completed CREATINE KINASE Stat LAB 06/13/23 08:06 Completed DRUG SCREEN (RAPID FOR ED) [DRUG SCREEN, URINE, RAPID] LAB 06/13/23 08:30 Completed Stat FLU A & B MOLECULAR [FLU A/B MOLECULAR] Stat LAB 06/13/23 07:37 Completed LACTIC ACID Stat LAB 06/13/23 07:10 Completed LIPASE Stat LAB 06/13/23 07:10 Completed MAGNESIUM Stat LAB 06/13/23 07:10 Completed TEST URINE [URINE ] Stat LAB 06/13/23 08:30 Completed TROPONIN I Stat LAB 06/13/23 07:10 Completed URINALYSIS C & S IF INDICATED Stat LAB 06/13/23 08:30 Completed Insulin Regular in 0.9 % NaCl [Myxredlin 100 Unit/100 Meds 06/13/23 08:00 Discontinued ml Bag] 100 unit in 100 ml IV TITRATION Ondansetron HCl/Pf [Zofran 4 mg/2 ml] Meds 06/13/23 06:58 Discontinued 4 mg IVP ONCE ONE Ondansetron [Zofran Odt] Meds 06/13/23 07:21 Discontinued 4 mg PO ONCE STA Pantoprazole Sodium [Protonix] Meds 06/13/23 06:58 Discontinued 40 mg IVP ONCE ONE Sodium Chloride 0.9% [Sodium Chloride] 1,000 ml Meds 06/13/23 06:58 Discontinued IV BOLUS Medications Discontinued Medications Generic Name Dose Route Start Last Admin Trade Name Freq PRN Reason Stop Dose Admin Acetaminophen 650 mg 06/13/23 09:37 Acetaminophen 325 Mg Tablet PO Q4H PRN Pain Benzocaine/Menthol 1 lozenge 06/13/23 11:56 06/13/23 14:23 Benzocaine/Menth/Cetylpyrd Cl 1 Lozenge MUCOUSMEMB 1 lozenge PRN PRN Administration SORE THROAT Heparin Sodium (Porcine) 5,000 units 06/13/23 17:18 06/13/23 18:36 Heparin Sodium,Porcine 5,000 Units/Ml Syringe IVP 06/13/23 17:19 5,000 units ONCE ONE Administration Sodium Chloride 1,000 mls @ 1,000 mls/hr 06/13/23 06:58 06/13/23 10:55 Sodium Chloride IV 06/13/23 07:57 Infused BOLUS ONE Infusion INSULIN REGULAR IN 0.9 % NACL 100 unit in 100 mls @ 6.645 mls/hr 06/13/23 08:00 06/13/23 17:30 Myxredlin 100 Unit/100 Ml Bag IV Infused TITRATION BLESSING Titration Protocol 0.1 UNIT/KG/HR Sodium Chloride 1,000 mls @ 250 mls/hr 06/13/23 10:00 06/13/23 13:38 Sodium Chloride IV Infused .Q4H BLESSING Infusion Potassium Chloride/Dextrose/Sod Cl 1,000 mls @ 250 mls/hr 06/13/23 13:00 06/13/23 17:51 D5%-1/2ns-Kcl 20 Meq/L Iv Vianey IV 250 mls/hr .Q4H BLESSING Administration Heparin Sodium/Sodium Chloride 25,000 unit in 250 mls @ 7.816 mls/hr 06/13/23 17:30 Heparin 25,000 Unit/250 Ml Nacl IV TITRATION [facility] Protocol 12 UNIT/KG/HR INSULIN REGULAR IN 0.9 % NACL 100 unit in 100 mls @ 6.514 mls/hr 06/13/23 17:35 06/13/23 17:50 Myxredlin 100 Unit/100 Ml Bag IV 0.1 unit/kg/hr TITRATION BLESSING 7.5 mls/hr Administration Protocol 0.1 UNIT/KG/HR Lorazepam 1 mg 06/13/23 09:48 06/13/23 09:59 Lorazepam Inj 2 Mg/Ml Vial IVP 06/13/23 09:49 1 mg ONCE ONE Administration Metoclopramide HCl 10 mg 06/13/23 08:46 06/13/23 09:20 Metoclopramide Hcl 10 Mg/2 Ml IVP 06/13/23 08:47 10 mg ONCE STA Administration Metoclopramide HCl 5 mg 06/13/23 09:37 Metoclopramide Hcl 10 Mg/2 Ml IVP Q6H PRN Nausea / Vomiting Metoprolol Tartrate 5 mg 06/13/23 11:06 06/13/23 11:36 Metoprolol Tartrate 5 Mg/5 Ml Vial IVP 06/13/23 11:07 5 mg ONCE ONE Administration Morphine Sulfate 2 mg 06/13/23 09:47 06/13/23 10:00 Morphine Sulfate 2 Mg/Ml Syringe IVP 2 mg Q6H PRN Administration Pain Ondansetron HCl 4 mg 06/13/23 06:58 06/13/23 07:59 Ondansetron Hcl/Pf 4 Mg/2 Ml Sdv IVP 06/13/23 06:59 4 mg ONCE ONE Administration Ondansetron HCl 4 mg 06/13/23 07:21 06/13/23 07:35 Ondansetron Hcl 4 Mg Tab.Rapdis PO 06/13/23 07:22 4 mg ONCE STA Administration Ondansetron HCl 4 mg 06/13/23 09:37 06/13/23 18:34 Ondansetron Hcl/Pf 4 Mg/2 Ml Sdv IVP 4 mg Q6H PRN Administration Nausea / Vomiting Pantoprazole Sodium 40 mg 06/13/23 06:58 06/13/23 07:59 Pantoprazole Sodium 40 Mg Vial IVP 06/13/23 06:59 40 mg ONCE ONE Administration Phenol/Menthol 1 spray 06/13/23 09:53 06/13/23 14:23 Phenol 1 [place] Btl MM 1 spray Q2H PRN Administration SORE THROAT Vital Signs: Temp Pulse Resp BP Pulse Ox 06/13/23 08:13 142 H 18 06/13/23 06:38 97.9 F 132 H 20 144/74 H 99 Discharge Plan Discharge Patient Disposition: ADMITTED INPATIENT Discharge Problem: DKA (diabetic ketoacidosis), Polydipsia, Tachycardia, Influenza Did you review [place] [employer] for ALL controlled substances?: Not Applicable ED Provider: KOFFI TREJO Condition: Fair <ZAY MARTINS MD - Last Filed: 06/13/23 07:10> Physician Progress Note: History obtained from the patient was EMS patient recently diagnosed with influenza B couple days ago history of chest pain diabetes mellitus past 11 years complains of frequent episodes of vomiting the past 2 to 3 days 20 times daily associated crampy abdominal pain denies diarrhea, urinary symptoms. Patient given bolus normal saline 1 L over 1 hour Zofran 4 mg IV Protonix milligrams IV Patient care endorsed to Dr. Trejo at 0705 For results of all laboratory data, abdominal and problem pain pain pain pain pain pain Clare negative, posterior drawer negative, valgus varus stress negative. No tenderness at tibial tuberosity, patellar tendon, quad tendon. No abnl dimpling. NO obvious fluid overload. Normal ROM 0-120 degrees bilaterally. Hip flexion normal 5/5, knee extension 5/5. Chronic right shoulder pain. Is here today for 2 for there right now but it is all EXTR pelvic CT scan findings and disposition [] <KOFFI TREJO DO - Last Filed: 06/13/23 19:35> Physician Progress Note: History obtained from the patient was EMS patient recently diagnosed with influenza B couple days ago history of chest pain diabetes mellitus past 11 years complains of frequent episodes of vomiting the past 2 to 3 days 20 times daily associated crampy abdominal pain denies diarrhea, urinary symptoms. Patient given bolus normal saline 1 L over 1 hour Zofran 4 mg IV Protonix milligrams IV Patient care endorsed to Dr. Trejo at 0705 For results of all laboratory data, abdominal and problem pain pain pain pain pain pain Clare negative, posterior drawer negative, valgus varus stress negative. No tenderness at tibial tuberosity, patellar tendon, quad tendon. No abnl dimpling. NO obvious fluid overload. Normal ROM 0-120 degrees bilaterally. Hip flexion normal 5/5, knee extension 5/5. Chronic right shoulder pain. Is here today for 2 for there right now but it is all EXTR pelvic CT scan findings and disposition [id number]: I received brief signout from the overnight physician regarding this patient. Patient presents with recent diagnosis of influenza 2 days ago. She is tachycardic on presentation. She is an insulin-dependent diabetic. Reports that she does have access to her medications. Reports generalized bodyaches. Severe thirst. Denies headache, chest pain, shortness of breath, abdominal pain, GI or issues otherwise. She does report significant nausea. Denies melena or hematochezia. Reports dry mouth. Requests water repeatedly. I suspect this patient is in diabetic ketoacidosis. This is supported by her metabolic profile ordered on presentation with a bicarb less than 5. Glucose over 500. Small ketones present. IV fluids ordered in addition to a insulin drip. Anion gap 34. Troponin mildly elevated. I added a CPK to her laboratory workup. I suspect the troponin bump is due to more to rhabdomyolysis more than acute cardiac event. EKG is tachycardic otherwise no acute signs of ischemia readily evident to me. Ultrasound-guided IV placed by me in the right antecubital fossa. This critically ill patient will require hospitalization. [] 1934: The patient is being subsequently transferred to another hospital at this time. In reviewing the chart, other differentials would include the potential of myocarditis. EKG was not consistent with pericarditis. She is flu positive and also had multiple scars on her arm. Myocarditis secondary to influenza may be the likely culprit for the elevated troponin. Endocarditis although patient was not profoundly febrile, also may be on the differential but less likely.
[2023-06-13 07:15] LABS: BASOPHILS % (AUTO) 0.1 % (0.0-3.0); HEMATOCRIT 38.5 % (37.0-47.0); HEMOGLOBIN 11.6 g/dl (12.0-16.0); IMMATURE GRANULOCYTE % (AUTO) 0.2 % (0.0-5.0); LYMPHOCYTES # (AUTO) 0.4 K/uL (0.60-3.4); LYMPHOCYTES % (AUTO) 4.1 (10.0-50.0); MEAN CORPUSCULAR HEMOGLOBIN 31.1 pg (27.0-31.0); MEAN CORPUSCULAR HGB CONC 30.1 (31.8-35.4); MEAN CORPUSCULAR VOLUME 103.2 fl (81.0-99.0); MONOCYTES # (AUTO) 0.3 K/uL (0.4-2.0); MONOCYTES % (AUTO) 3.2 (0-10); NEUTROPHILS % (AUTO) 92.4 % (42.2-75.2); PLATELET COUNT 334 10^3/uL (140-440); RDW COEFFICIENT OF VARIATION 12.7 % (11.6-14.8); RED BLOOD COUNT 3.73 10^6/ul (4.20-5.40); WHITE BLOOD COUNT 8.71 K/ul (4.6-10.2)
[2023-06-13] MEDS: SODIUM CHLORIDE 1,000 ML IV ONE (07:26)
[2023-06-13] MEDS: ZOFRAN ODT PO STA (07:27)
[2023-06-13] MEDS: PROTONIX IVP ONE (07:27)
[2023-06-13] MEDS: ZOFRAN 4 MG/2 ML IVP ONE (07:27)
[2023-06-13 07:28] LABS: ALANINE AMINOTRANSFERASE 23.2 U/L (0-35); ALBUMIN 4.85 g/dL (3.5-5.0); BILIRUBIN,TOTAL 0.52 mg/dL (0.2-1.3); BLOOD UREA NITROGEN 13.6 mg/dL (7-17); CREATININE 1.34 mg/dL (0.60-1.30); LIPASE 13.9 U/L (23-300); MAGNESIUM 1.69 mg/dL (1.6-2.3); POTASSIUM 5.29 mmol/L (3.5-5.1); SODIUM 135.2 mmol/L (134.5-145); TOTAL PROTEIN 8.06 g/dL (6.3-8.2)
[2023-06-13 07:39] LABS: GLUCOSE 514.4 mg/dL (74-106)
[2023-06-13 07:40] LABS: TROPONIN I 0.175 ng/ml (0.0000-0.120)
[2023-06-13 07:53] LABS: CARBON DIOXIDE < 5.0 mmol/L (22-30.0)
[2023-06-13 08:05] LABS: MOLECULAR FLU A NEGATIVE BY NAAT (NEGATIVE); MOLECULAR FLU B POSITIVE BY NAAT (NEGATIVE); SARS COV-2 RNA RAPID NAAT NEGATIVE (NEGATIVE)
[2023-06-13] MEDS: MYXREDLIN 100 UNIT/100 ML BAG 100 UNIT/100 ML PLAST..BAG IV SCH ×2 (08:13→17:50)
[2023-06-13 08:45] LABS: BILIRUBIN,URINE 1+ (NEGATIVE); CLARITY,URINE Clear (CLEAR); COLOR,URINE Yellow (YELLOW); GLUCOSE, URINE (UA) 2+ (NEGATIVE); KETONES,URINE 4+ (NEGATIVE); LEUKOCYTE ESTERASE ,URINE Negative (NEGATIVE); NITRITE,URINE Negative (NEGATIVE); PH,URINE 5.5 (5-9); PROTEIN,URINE Trace (NEGATIVE); URINE PREGNANCY TEST NEGATIVE (NEGATIVE); URINE, BLOOD Negative (NEGATIVE); UROBILINOGEN,URINE 0.2 (0.2)
[2023-06-13 08:57] LABS: AMPHETAMINE SCREEN,URINE NEGATIVE (NEGATIVE); BARBITURATE SCREEN,URINE NEGATIVE (NEGATIVE); METHADONE URINE SCREEN NEGATIVE (NEGATIVE); METHAMPHETAMINES SCREEN,URINE NEGATIVE (NEGATIVE); OPIATE SCREEN,URINE POSITIVE (NEGATIVE); OXYCODONE URINE SCREEN NEGATIVE (NEGATIVE); PHENCYCLIDINE SCREEN,URINE NEGATIVE (NEGATIVE)
[2023-06-13 08:58] LABS: BENZODIAZEPINES SCREEN,URINE NEGATIVE (NEGATIVE); CANNABINOID SCREEN,URINE NEGATIVE (NEGATIVE); COCAIN SCREEN,URINE NEGATIVE (NEGATIVE); TRICYCLIC ANTIDEPRESSANTS URIN NEGATIVE (NEGATIVE)
[2023-06-13] MEDS: REGLAN IVP STA (09:20)
[2023-06-13] MEDS ORDERED: TYLENOL PO PRN (09:37)
[2023-06-13] MEDS ORDERED: REGLAN IVP PRN (09:37)
[2023-06-13 09:48] VITALS: BMI 24.6
[2023-06-13] MEDS: ATIVAN IVP ONE (09:59)
[2023-06-13] MEDS: MORPHINE 2 MG/ML SYRINGE IVP PRN (10:00)
[2023-06-13] MEDS: ZOFRAN 4 MG/2 ML IVP PRN (10:00)
[2023-06-13] MEDS: SODIUM CHLORIDE 1,000 ML IV SCH (10:54)
[2023-06-13] MEDS: CHLORASEPTIC SPRAY MM PRN (10:54)
--- NOTE | 2023-06-13 11:31 | PCM ---
Date of Service Date Seen by Provider: 06/13/23 Time Seen by Provider: 09:45 Admit Day/Time Admission Date: 06/13/23 Reason for Admission Chief Complaint: DKA; FLU B Hospital Provider Hospital Provider: ZAYNAB PRITCHARD, [facility] Primary Care Physician Primary Care Physician: KEENAN BRIDGES APRN History of Present Illness History of Present Illness: 37 yo female presented to the ER with complaints of vomiting. Patient states she was diagnosed with influenza 2 days ago and has not been feeling well since. Has not been able to keep anything down over the last 24 hours. Has been taking tamiflu. Reports that her blood glucose at home was on in 300s that she knows of. She is a Type 1 diabetic on insulin injections. In ER, she was found to be in severe DKA and admitted to med/surg inpatient. She was started on IV fluids and insulin gtt in ER with multiple doses of antiemetics. Case Discussed With Case Discussed With: Patient's case was discussed with the ER Physicians, Dr. Reyes. 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 Mother No problems noted. Other No known health problems Social History Smoking and tobacco status: Former smoker Quit date: 10/27/21 Tobacco: How many years used: 18 Quit status: has quit before Second hand smoke exposure: Yes Alcohol intake: former Substance use type: former substance user Date of last use: former methamphetamine abuse, clean 4 years as of 2021 Lia/congregation: None Special lia needs: No Agree to transfusion: Yes Adopted: No Caregiver/support person: Yes Household members: other Other Household Members: mom Housing: other Marital status: D Lives independently: Yes Number of children: 0 Highest education level completed: high school graduate Financial difficulty paying for basics: not applicable service: No Current occupational status: unemployed and disabled Current occupational exposures/hazards: No Pets and animals: Yes (4 dogs ) Leisure activites: fishing History of recent travel: No Sexually active: No Do you think of yourself as: lesbian/lea/homosexual Current gender identity: female Seatbelt use: always Helmet use: No Drives intoxicated or rides with intoxicated emergency vehicle driver: No Water heater temperature set < 120 degrees: Yes Working smoke detector in home: Yes Fire extinguisher in home: Yes Carbon monoxide detector in home: Yes Firearms in home: No Additional social history: pt states that their heat is out and has been for 3 months landlord refuses to fix it. Pt states that ruth are and back door from [employer]. Allergies Allergies Allergy/AdvReac Type Severity Reaction Status Date / Time doxycycline Allergy Rash Verified 06/13/23 06:48 sulfamethoxazole AdvReac Intermediate feel hot Verified 06/13/23 06:48 [From Bactrim] and muscle pain trimethoprim [From Bactrim] AdvReac Intermediate feel hot Verified 06/13/23 06:48 and muscle pain amoxicillin [Amoxicillin] AdvReac Rash Verified 06/13/23 06:48 amoxicillin trihydrate AdvReac Rash Verified 06/13/23 06:48 [From Augmentin] cyclobenzaprine AdvReac abnormal Verified 06/13/23 06:48 [From Flexeril] muscle movement diazepam [From Valium] AdvReac abnormal Verified 06/13/23 06:48 muscle movement Penicillins AdvReac Rash Verified 06/13/23 06:48 potassium clavulanate AdvReac Rash Verified 06/13/23 06:48 [From Augmentin] tramadol AdvReac Nausea Verified 06/13/23 06:48 Current Medications Home Medications blood-glucose meter #1 ea 10/28/18 [History Confirmed 06/13/23 Last Taken Unknown] lancets 33 gauge (OneTouch Delica Plus Lancet) #100 ea 09/05/21 [Rx Confirmed 06/13/23 Last Taken Unknown] lancets 33 gauge (TRUEplus Lancets) See Rx Instructions .Route .COMPLEX #100 ea 09/05/21 [Rx Confirmed 06/13/23 Last Taken Unknown] pravastatin 10 mg tablet 10 mg PO QDAY #90 tabs 09/19/22 [Rx Confirmed 06/13/23 Last Taken Unknown] levothyroxine 100 mcg tablet See Rx Instructions .Route .COMPLEX #90 tabs 01/03/23 [Rx Confirmed 06/13/23 Last Taken Unknown] insulin regular human 100 unit/mL injection solution (Humulin R Regular U-100 Insulin) See Rx Instructions .Route .COMPLEX #10 mL 01/09/23 [Rx Confirmed 06/13/23 Last Taken Unknown] clonidine HCl 0.1 mg tablet,extended release,12 hr (Kapvay) 0.2 mg (2 x 0.1 mg) PO QHS #60 tabs 03/19/23 [Rx Confirmed 06/13/23 Last Taken Unknown] hydrocodone 7.5 mg-acetaminophen 325 mg tablet 1 tab PO BID 03/19/23 [History Confirmed 06/13/23 Last Taken Unknown] lamotrigine 100 mg tablet 100 mg PO QDAY #30 tabs 03/19/23 [Rx Confirmed 06/13/23 Last Taken Unknown] lurasidone 40 mg tablet (Latuda) 40 mg PO QPM #30 tabs 03/19/23 [Rx Confirmed 06/13/23 Last Taken Unknown] oxybutynin chloride 15 mg tablet,extended release 24 hr 15 mg PO QDAY #30 tabs 04/04/23 [Rx Confirmed 06/13/23 Last Taken Unknown] oxybutynin chloride 5 mg tablet,extended release 24 hr 5 mg PO QDAY #30 tabs 04/04/23 [Rx Confirmed 06/13/23 Last Taken Unknown] medroxyprogesterone 150 mg/mL intramuscular syringe See Rx Instructions .Route .COMPLEX #1 mL 04/18/23 [Rx Confirmed 06/13/23 Last Taken Unknown] polyethylene glycol 3350 17 gram/dose oral powder (Miralax) 17 g PO QDAY #510 grams 04/19/23 [Rx Confirmed 06/13/23 Last Taken Unknown] insulin syringe-needle U-100 0.5 mL 30 gauge x 5/16" (TRUEplus Insulin) #100 ea 04/30/23 [Rx Confirmed 06/13/23 Last Taken Unknown] pen needle, diabetic 31 gauge x 5/16" (TRUEplus Pen Needle) See Rx Instructions miscellaneous .daily #90 ea 04/30/23 [Rx Confirmed 06/13/23 Last Taken Unknown] blood sugar diagnostic (Blood Glucose Test strips) #100 ea 05/16/23 [Rx Confirmed 06/13/23 Last Taken Unknown] dicyclomine 20 mg tablet 20 mg PO BID #20 tabs 05/19/23 [Rx Confirmed 06/13/23 Last Taken Unknown] insulin glargine 100 unit/mL (3 mL) subcutaneous pen See Rx Instructions .Route .COMPLEX #15 mL 05/21/23 [Rx Confirmed 06/12/23 Last Taken Unknown] albuterol sulfate 90 mcg/actuation aerosol inhaler (Ventolin HFA) 2 puff inhalation Q4-6H PRN shortness of breath #8.5 grams 06/12/23 [Rx Confirmed 06/13/23 Last Taken Unknown] oseltamivir 75 mg capsule (Tamiflu) 75 mg PO BID 5 days #10 caps 06/12/23 [Rx Confirmed 06/12/23 Last Taken Unknown] promethazine 25 mg tablet 25 mg PO Q6H PRN nausea and vomiting #20 tabs 06/12/23 [Rx Confirmed 06/13/23 Last Taken 06/12/23 18:49] Home Acetaminophen (Acetaminophen 325 Mg Tablet) 650 mg PO Q4H PRN PRN Reason: Pain Benzocaine/Menthol (Benzocaine/Menth/Cetylpyrd Cl 1 Lozenge) 1 lozenge MUCOUSMEMB PRN PRN PRN Reason: SORE THROAT Last Admin: 06/13/23 12:16 Dose: 1 lozenge INSULIN REGULAR IN 0.9 % NACL (Myxredlin 100 Unit/100 Ml Bag) 100 unit in 100 mls @ 6.645 mls/hr IV TITRATION BLESSING; Protocol Last Titration: 06/13/23 12:24 Dose: 0.1 unit/kg/hr, 9.5 mls/hr Sodium Chloride (Sodium Chloride) 1,000 mls @ 250 mls/hr IV .Q4H BLESSING Last Admin: 02/28/24 10:54 Dose: 250 mls/hr Metoclopramide HCl (Metoclopramide Hcl 10 Mg/2 Ml) 5 mg IVP Q6H PRN PRN Reason: Nausea / Vomiting Morphine Sulfate (Morphine Sulfate 2 Mg/Ml Syringe) 2 mg IVP Q6H PRN PRN Reason: Pain Last Admin: 06/13/23 10:00 Dose: 2 mg Ondansetron HCl (Ondansetron Hcl/Pf 4 Mg/2 Ml Sdv) 4 mg IVP Q6H PRN PRN Reason: Nausea / Vomiting Last Admin: 06/13/23 10:00 Dose: 4 mg Phenol/Menthol (Phenol 1 [place] Btl) 1 spray MM Q2H PRN PRN Reason: SORE THROAT Last Admin: 06/13/23 10:54 Dose: 1 spray Discontinued Medications Sodium Chloride (Sodium Chloride) 1,000 mls @ 1,000 mls/hr IV BOLUS ONE Stop: 06/13/23 07:57 Last Infusion: 06/13/23 10:55 Dose: Infused Lorazepam (Lorazepam Inj 2 Mg/Ml Vial) 1 mg IVP ONCE ONE Stop: 06/13/23 09:49 Last Admin: 06/13/23 09:59 Dose: 1 mg Metoclopramide HCl (Metoclopramide Hcl 10 Mg/2 Ml) 10 mg IVP ONCE STA Stop: 06/13/23 08:47 Last Admin: 06/13/23 09:20 Dose: 10 mg Metoprolol Tartrate (Metoprolol Tartrate 5 Mg/5 Ml Vial) 5 mg IVP ONCE ONE Stop: 06/13/23 11:07 Last Admin: 06/13/23 11:36 Dose: 5 mg Ondansetron HCl (Ondansetron Hcl/Pf 4 Mg/2 Ml Sdv) 4 mg IVP ONCE ONE Stop: 06/13/23 06:59 Last Admin: 06/13/23 07:59 Dose: 4 mg Ondansetron HCl (Ondansetron Hcl 4 Mg Tab.Rapdis) 4 mg PO ONCE STA Stop: 06/13/23 07:22 Last Admin: 06/13/23 07:35 Dose: 4 mg Pantoprazole Sodium (Pantoprazole Sodium 40 Mg Vial) 40 mg IVP ONCE ONE Stop: 06/13/23 06:59 Last Admin: 06/13/23 07:59 Dose: 40 mg Opioid Naive vs. Tolerant Does Patient Take Opioids?: Yes Is Patient Opioid Naive?: No What is Opioid Naive?: *Opioid Naive implies the patient is not already taking opioids or not chronically receiving opioids on a daily basis. *PRN dosing is not "usually" associated with tolerance. *Patients are at higher risk of over-sedation and aspiration. Is Patient Opioid Tolerant?: No What is Opioid Tolerant?: *Opioid Tolerance implies less than the expected response to an opioid. *Acquired tolerance is defined by the patient taking 60mg of oral morphine daily (or equianalgesic dose of another opioid) for 1 week or more. *Often associated with chronic pain. *May take more than usual dose to achieve desired pain control. Review of Systems Constitutional: Reports Fatigue Head: Reports Normocephalic and Atraumatic Eyes: Reports No symptoms Ears: Reports No symptoms Nose: Reports No symptoms Mouth: Reports No symptoms Throat: Reports Sore Throat Cardiovascular: Reports Chest pain (tight/jittery) Respiratory: Reports Cough Gastrointestinal: Reports Nausea and Vomiting Genitourinary: Reports No Symptoms Musculoskeletal: Reports No symptoms Endocrine: Reports No symptoms Hematology: Reports No symptoms Neurological: Reports No symptoms Physical examination Most Recent Vital Signs: Most Recent Vital Signs Temperature 98.3 F 06/13/23 09:30 Temperature Source Temporal Artery Scan 06/13/23 09:30 Temperature Source Infrared 06/13/23 06:38 Pulse Rate 147 H 06/13/23 10:05 Respiratory Rate 25 H 06/13/23 10:05 Blood Pressure 144/74 H 06/13/23 06:38 Blood Pressure Left Arm 142/79 06/13/23 09:30 Blood Pressure Position Supine 06/13/23 09:30 O2 Sat by Pulse Oximetry 100 06/13/23 09:30 Oxygen Delivery Method Room Air 06/13/23 09:30 Height 5 ft 4 in 06/13/23 09:30 Weight 143 lb 9.6 oz 06/13/23 09:30 Appearance: Positive Alert and Oriented x3 and Ill-Appearing Skin: Positive Warm HEENT: Positive Normocephalic and PERRLA Neck: Positive Supple and Midline Trachea Chest/Lungs: Positive Symmetrical With Equal Breath Sounds, Clear to Auscultation Bilaterally, Good Air Movement all 4 Lung Ahn and Other (tachy pnea noted) Heart: Positive Pulses Normal and Tachycardia GI/: Positive Soft, Nontender, Bowel Sounds Normal and No Distention Musculoskeletal: Positive Not Examined Extremities: Positive Intact Peripheral Pulses, Stable Joints Without Laxity and Good ROM in All Joints Neurological: Positive Sensation Intact, Motor intact, Reflexes Intact, Alert, Oriented and Muscle Strength 5/5 in Upper and Lower Extremities Bilaterally Psychiatric: Positive Other (anxious) Labs This Visit Labs This Visit: Labs This Visit 06/13/23 06/13/23 06/13/23 07:10 07:37 08:06 WBC 8.71 RBC 3.73 L Hgb 11.6 L Hct 38.5 MCV 103.2 H MCH 31.1 H MCHC 30.1 L RDW Coeff of Kurt 12.7 Plt Count 334 Immature Gran % (Auto) 0.2 Neut % (Auto) 92.4 H Lymph % (Auto) 4.1 L [place] % (Auto) 3.2 Eos % (Auto) 0.0 Baso % (Auto) 0.1 Neut # (Auto) 8.0 H Lymph # (Auto) 0.4 L [place] # (Auto) 0.3 L Eos # (Auto) 0.0 Baso # (Auto) 0.0 Immature Gran # (Auto) 0.0 Sodium 135.2 Potassium 5.29 H Chloride 104.0 Carbon Dioxide < 5.0 L* D Anion Gap 31.44097 BUN 13.6 Creatinine 1.34 H Estimated GFR (MDRD) 45.00 BUN/Creatinine Ratio 10.14 Glucose 514.4 H* Lactic Acid 1.61 Calcium 9.90 Magnesium 1.69 Total Bilirubin 0.52 AST 28.0 ALT 23.2 Alkaline Phosphatase 68.0 Total Creatine Kinase 46.4 Troponin I 0.175 H Total Protein 8.06 Albumin 4.85 Globulin 3.21 Albumin/Globulin Ratio 1.51 Lipase 13.9 L Urine Color Urine Clarity Urine pH Ur Specific [place] Urine Protein Urine Glucose (UA) Urine Ketones Urine Blood Urine Nitrite Urine Bilirubin Urine Urobilinogen Ur Leukocyte Esterase Urine Microscopic WBC Ur Squamous Epith Cells Urine Test Urine Opiates Screen Ur Oxycodone Screen Urine Methadone Screen Ur Barbiturates Screen U Tricyclic Antidepress Ur Phencyclidine Scrn Ur Amphetamine Screen U Methamphetamines Scrn U Benzodiazepines Scrn Urine Cocaine Screen U Cannabinoids Screen Acetone, Qual Small Influ A Molecular Assay Negative by naat Influ B Molecular Assay Positive by naat H SARS CoV-2 RNA Rapid JOSE Negative 06/13/23 06/13/23 08:30 09:52 WBC RBC Hgb Hct MCV MCH MCHC RDW Coeff of Kurt Plt Count Immature Gran % (Auto) Neut % (Auto) Lymph % (Auto) [place] % (Auto) Eos % (Auto) Baso % (Auto) Neut # (Auto) Lymph # (Auto) [place] # (Auto) Eos # (Auto) Baso # (Auto) Immature Gran # (Auto) Sodium Potassium Chloride Carbon Dioxide Anion Gap BUN Creatinine Estimated GFR (MDRD) BUN/Creatinine Ratio Glucose Lactic Acid Calcium Magnesium Total Bilirubin AST ALT Alkaline Phosphatase Total Creatine Kinase Troponin I 0.650 H* Total Protein Albumin Globulin Albumin/Globulin Ratio Lipase Urine Color Yellow Urine Clarity Clear Urine pH 5.5 Ur Specific [place] 1.020 Urine Protein Trace H Urine Glucose (UA) 2+ H Urine Ketones 4+ Urine Blood Negative Urine Nitrite Negative Urine Bilirubin 1+ H Urine Urobilinogen 0.2 Ur Leukocyte Esterase Negative Urine Microscopic WBC 2-5 Ur Squamous Epith Cells 5-10 Urine Test Negative Urine Opiates Screen Positive H Ur Oxycodone Screen Negative Urine Methadone Screen Negative Ur Barbiturates Screen Negative U Tricyclic Antidepress Negative Ur Phencyclidine Scrn Negative Ur Amphetamine Screen Negative U Methamphetamines Scrn Negative U Benzodiazepines Scrn Negative Urine Cocaine Screen Negative U Cannabinoids Screen Negative Acetone, Qual Influ A Molecular Assay Influ B Molecular Assay SARS CoV-2 RNA Rapid JOSE Review Statement Review Statement: I have independently reviewed and interpreted the labs/EKGs/imaging that were ordered by the ER provider. I have reviewed all outside records that are available currently in our EMR including imaging/notes/labs from previous visits. Plan Plan: 1. Severe, DKA - NS@250mL/hr, insulin gtt per protocol, NPO, bmp and venous ph Q4H 2. Hyperkalemia - receiving IV fluids and insulin, will monitor with BMP, telemetry 3. Elevated troponin - likely reactive due to severe DKA and tachycardia, will trend, no ST changes on EKG, telemetry, metoprolol 5 mg x1 given for tachycardia and improved to 110 4. Influenza B - will continue tamiflu when able to tolerate PO intake 5. Diabetes, Type 1 - see above plan, A1c 6.42 today, will resume home regimen when correction of DKA 6. Hypothyroidism - chronic, continue home medications DVT Prophylaxis: Ambulation Time Spent: Greater than 80 minutes spent with patient, 50% of the time spent with this patient was devoted to counseling and coordination of care. [facility] minutes spent discussing advance care planning Disposition: Admit to: Med/surg Inpatient Full Code Discussed Plan of Care with Dr. Celestino Baird. Medications Medication Orders: Medications Ordered Category Date Time Status Acetaminophen [Tylenol] Meds 06/13/23 09:37 Active 650 mg PO Q4H PRN Insulin Regular in 0.9 % NaCl [Myxredlin 100 Unit/100 Meds 06/13/23 08:00 Active ml Bag] 100 unit in 100 ml IV TITRATION Metoclopramide HCl [Reglan] Meds 06/13/23 09:37 Active 5 mg IVP Q6H PRN Morphine Sulfate [Morphine 2 mg/ml Syringe] Meds 06/13/23 09:47 Active 2 mg IVP Q6H PRN Ondansetron HCl/Pf [Zofran 4 mg/2 ml] Meds 06/13/23 09:37 Active 4 mg IVP Q6H PRN Phenol [Chloraseptic [place]] Meds 06/13/23 09:53 Active 1 spray MM Q2H PRN Sodium Chloride 0.9% [Sodium Chloride] 1,000 ml Meds 06/13/23 10:00 Active IV 250 mls/hr
[2023-06-13] MEDS: LOPRESSOR IVP ONE (11:36)
[2023-06-13] MEDS: CEPACOL SORE THROAT LOZENGE MUCOUSMEMB PRN (12:16)
[2023-06-13 12:31] LABS: BLOOD UREA NITROGEN 12.8 mg/dL (7-17); CALCIUM 9.29 mg/dL (8.4-10.2); CHLORIDE 113.2 mmol/L (98-107); CREATININE 1.24 mg/dL (0.60-1.30); GLUCOSE 193.6 mg/dL (74-106); POTASSIUM 4.1 mmol/L (3.5-5.1); SODIUM 139.9 mmol/L (134.5-145)
[2023-06-13 12:38] LABS: CARBON DIOXIDE 7.4 mmol/L (22-30.0)
[2023-06-13] MEDS: D5%-1/2NS-KCL 20 MEQ/L IV SOL 1,000 ML IV SCH (12:54)
[2023-06-13 13:02] LABS: VBG HCO3 14.4 (22-26); VBG OXYGEN SATURATION 34.6 (60-80); VBG PH 7.26 (7.30-7.40)
[2023-06-13 14:23] VITALS: BP 130/75; PULSE 108; TEMP 98.6
[2023-06-13 15:52] VITALS: RESP 20
[2023-06-13 16:24] LABS: BLOOD UREA NITROGEN 10.3 mg/dL (7-17); CALCIUM 9.26 mg/dL (8.4-10.2); CHLORIDE 111.8 mmol/L (98-107); CREATININE 1.04 mg/dL (0.60-1.30); GLUCOSE 154.2 mg/dL (74-106); POTASSIUM 4.37 mmol/L (3.5-5.1); SODIUM 136.9 mmol/L (134.5-145)
[2023-06-13] MEDS ORDERED: HEPARIN 25,000 UNIT/250 ML NACL 25,000 UNIT/250 ML BAG IV SCH (17:30)
--- NOTE | 2023-06-13 17:45 | DCSUM ---
Admission Date Admission Date: 06/13/23 Discharge Date Discharge Date: 06/13/23 Admission Diagnosis Admission Diagnosis: 1. Severe, DKA 2. Hyperkalemia 3. Elevated troponin 4. Influenza B 5. Diabetes, Type 1 6. Hypothyroidism Discharge Diagnosis Discharge Diagnosis: 1. NSTEMI 2. Severe, DKA - Improving 3. Hyperkalemia - Resolved 4. Influenza B - Stable 5. Diabetes, Type 1 - Chronic 6. Hypothyroidism - Chronic Hospital Provider Hospital Provider: ZAYNAB PRITCHARD, [facility] Primary Care Physician Primary Care Physician: KEENAN BRIDGES APRN Summary of History and Physical Summary of History and Physical: 37 yo female presented to the ER with complaints of vomiting. Patient states she was diagnosed with influenza 2 days ago and has not been feeling well since. Has not been able to keep anything down over the last 24 hours. Has been taking tamiflu. Reports that her blood glucose at home was on in 300s that she knows of. She is a Type 1 diabetic on insulin injections. In ER, she was found to be in severe DKA and admitted to med/surg inpatient. She was started on IV fluids and insulin gtt in ER with multiple doses of antiemetics. Hospital Course Subjective: During exam patient had complaints of midsternal/epigastric chest pian and felt jittery. HR was running in 140s-160s at times. She was given a dose of metoprolol 5 mg IVP which lowered HR to 110s. She was also given a dose of morphine which alleviated the pain temporarily. Troponin was collected in the ER and was found to be 0.175, repeat was 0.650, and last one was 7.52. At this time, patient is nauseated, vomiting, experiencing epigastric pain/L sided chest pain, and back pain. Heparin bolus and drip ordered to be initiated following these findings. EKG completed after second troponin that did not show any ST changes, interpreted as sinus tachycardia at rate of 140. For treatment of DKA she was started on NS@250mL/hr and insulin gtt. As blood glucose lowered to <200, IV fluids transitioned to D5 0.45%NS + 20 mEq KCL@250mL/hr. Insulin gtt continued at this time. Anion gap has decreased to 15 from initial of 31. Due to NSTEMI and worsening condition, patient requires transfer to higher level of care with Cardiology and ICU services. Accepted by Dr. Lemus at [facility]. Appearance: Pleasant, Alert and Ill-appearing HEENT: MMM, Supple and No JVD CVS: No Murmur Abdomen: Soft, Non-Tender and No Distention Respiratory: No Dyspnea Extremities: No Edema Vital Signs: Most Recent Vital Signs Temperature 98.6 F 06/13/23 14:00 Temperature Source Temporal Artery Scan 06/13/23 14:00 Temperature Source Infrared 06/13/23 06:38 Pulse Rate 108 H 06/13/23 15:00 Respiratory Rate 20 06/13/23 15:00 Blood Pressure 130/75 06/13/23 14:00 Blood Pressure Mean 93 06/13/23 14:00 Blood Pressure Left Arm 142/79 06/13/23 09:30 Blood Pressure Location Left Arm 06/13/23 14:00 Blood Pressure Position Supine 06/13/23 14:00 O2 Sat by Pulse Oximetry 100 06/13/23 14:00 Oxygen Delivery Method Room Air 06/13/23 14:00 Height 5 ft 4 in 06/13/23 09:30 Weight 143 lb 9.6 oz 06/13/23 09:30 Telemetry Type Bedside Monitor 06/13/23 13:00 Telemetry Monitoring Continues 06/13/23 13:00 Telemetry Heart Rate 111 H 06/13/23 13:00 Telemetry SPO2 100 06/13/23 13:00 EKG [place] Interval 0.19 06/13/23 13:00 EKG QRS Interval 0.06 06/13/23 13:00 Telemetry Strip Reading Sinus Tachycardia 06/13/23 13:00 Lab Results Last 24 Hours: 06/13/23 06/13/23 06/13/23 16:03 12:58 12:15 WBC RBC Hgb Hct MCV MCH MCHC RDW Coeff of Kurt Plt Count Immature Gran % (Auto) Neut % (Auto) Lymph % (Auto) Barton % (Auto) Eos % (Auto) Baso % (Auto) Neut # (Auto) Lymph # (Auto) Barton # (Auto) Eos # (Auto) Baso # (Auto) Immature Gran # (Auto) VBG pH 7.26 L VBG pCO2 32 L VBG pO2 25 L VBG HCO3 14.4 L VBG O2 Saturation 34.6 L Sodium 136.9 139.9 Potassium 4.37 4.10 Chloride 111.8 H 113.2 H Carbon Dioxide 14.0 L 7.4 L* Anion Gap 15.47 23.40 BUN 10.3 12.8 Creatinine 1.04 1.24 Estimated GFR (MDRD) 60.00 49.00 BUN/Creatinine Ratio 9.90 10.32 Glucose 154.2 H 193.6 H D Lactic Acid Calcium 9.26 9.29 Magnesium Total Bilirubin AST ALT Alkaline Phosphatase Total Creatine Kinase Troponin I Total Protein Albumin Globulin Albumin/Globulin Ratio Lipase Urine Color Urine Clarity Urine pH Ur Specific [place] Urine Protein Urine Glucose (UA) Urine Ketones Urine Blood Urine Nitrite Urine Bilirubin Urine Urobilinogen Ur Leukocyte Esterase Urine Microscopic WBC Ur Squamous Epith Cells Urine Test Urine Opiates Screen Ur Oxycodone Screen Urine Methadone Screen Ur Barbiturates Screen U Tricyclic Antidepress Ur Phencyclidine Scrn Ur Amphetamine Screen U Methamphetamines Scrn U Benzodiazepines Scrn Urine Cocaine Screen U Cannabinoids Screen Acetone, Qual Influ A Molecular Assay Influ B Molecular Assay SARS CoV-2 RNA Rapid JOSE 06/13/23 06/13/23 06/13/23 09:52 08:30 08:06 WBC RBC Hgb Hct MCV MCH MCHC RDW Coeff of Kurt Plt Count Immature Gran % (Auto) Neut % (Auto) Lymph % (Auto) Barton % (Auto) Eos % (Auto) Baso % (Auto) Neut # (Auto) Lymph # (Auto) Barton # (Auto) Eos # (Auto) Baso # (Auto) Immature Gran # (Auto) VBG pH VBG pCO2 VBG pO2 VBG HCO3 VBG O2 Saturation Sodium Potassium Chloride Carbon Dioxide Anion Gap BUN Creatinine Estimated GFR (MDRD) BUN/Creatinine Ratio Glucose Lactic Acid Calcium Magnesium Total Bilirubin AST ALT Alkaline Phosphatase Total Creatine Kinase 46.4 Troponin I 0.650 H* Total Protein Albumin Globulin Albumin/Globulin Ratio Lipase Urine Color Yellow Urine Clarity Clear Urine pH 5.5 Ur Specific [place] 1.020 Urine Protein Trace H Urine Glucose (UA) 2+ H Urine Ketones 4+ Urine Blood Negative Urine Nitrite Negative Urine Bilirubin 1+ H Urine Urobilinogen 0.2 Ur Leukocyte Esterase Negative Urine Microscopic WBC 2-5 Ur Squamous Epith Cells 5-10 Urine Test Negative Urine Opiates Screen Positive H Ur Oxycodone Screen Negative Urine Methadone Screen Negative Ur Barbiturates Screen Negative U Tricyclic Antidepress Negative Ur Phencyclidine Scrn Negative Ur Amphetamine Screen Negative U Methamphetamines Scrn Negative U Benzodiazepines Scrn Negative Urine Cocaine Screen Negative U Cannabinoids Screen Negative Acetone, Qual Influ A Molecular Assay Influ B Molecular Assay SARS CoV-2 RNA Rapid JOSE 06/13/23 06/13/23 07:37 07:10 WBC 8.71 RBC 3.73 L Hgb 11.6 L Hct 38.5 MCV 103.2 H MCH 31.1 H MCHC 30.1 L RDW Coeff of Kurt 12.7 Plt Count 334 Immature Gran % (Auto) 0.2 Neut % (Auto) 92.4 H Lymph % (Auto) 4.1 L Barton % (Auto) 3.2 Eos % (Auto) 0.0 Baso % (Auto) 0.1 Neut # (Auto) 8.0 H Lymph # (Auto) 0.4 L Barton # (Auto) 0.3 L Eos # (Auto) 0.0 Baso # (Auto) 0.0 Immature Gran # (Auto) 0.0 VBG pH VBG pCO2 VBG pO2 VBG HCO3 VBG O2 Saturation Sodium 135.2 Potassium 5.29 H Chloride 104.0 Carbon Dioxide < 5.0 L* D Anion Gap 31.30280 BUN 13.6 Creatinine 1.34 H Estimated GFR (MDRD) 45.00 BUN/Creatinine Ratio 10.14 Glucose 514.4 H* Lactic Acid 1.61 Calcium 9.90 Magnesium 1.69 Total Bilirubin 0.52 AST 28.0 ALT 23.2 Alkaline Phosphatase 68.0 Total Creatine Kinase Troponin I 0.175 H Total Protein 8.06 Albumin 4.85 Globulin 3.21 Albumin/Globulin Ratio 1.51 Lipase 13.9 L Urine Color Urine Clarity Urine pH Ur Specific [place] Urine Protein Urine Glucose (UA) Urine Ketones Urine Blood Urine Nitrite Urine Bilirubin Urine Urobilinogen Ur Leukocyte Esterase Urine Microscopic WBC Ur Squamous Epith Cells Urine Test Urine Opiates Screen Ur Oxycodone Screen Urine Methadone Screen Ur Barbiturates Screen U Tricyclic Antidepress Ur Phencyclidine Scrn Ur Amphetamine Screen U Methamphetamines Scrn U Benzodiazepines Scrn Urine Cocaine Screen U Cannabinoids Screen Acetone, Qual Small Influ A Molecular Assay Negative by naat Influ B Molecular Assay Positive by naat H SARS CoV-2 RNA Rapid JOSE Negative Discharge Instructions Discharge Planning: Discharge Planning > 40 minutes If patient is discharged with left ventricular systolic dysfunction: NA Discharged with a beta henrique? [] If no, why not? [] Discharged with an delfino/arb? [] If no, why not? [] DX: NSTEMI, DKA TRANSFER TO [facility] ACCEPTING PHYSICIAN: DR. LEMUS Critical Care time: 35 minutes Discharge Medications: Medications at Discharge (Home Meds & RX) blood-glucose meter #1 ea 10/28/18 lancets 33 gauge (OneTouch Delica Plus Lancet) #100 ea 09/05/21 lancets 33 gauge (TRUEplus Lancets) See Rx Instructions .Route .COMPLEX #100 ea 09/05/21 pravastatin 10 mg tablet 10 mg PO QDAY #90 tabs 09/19/22 levothyroxine 100 mcg tablet See Rx Instructions .Route .COMPLEX #90 tabs 01/03/23 insulin regular human 100 unit/mL injection solution (Humulin R Regular U-100 Insulin) See Rx Instructions .Route .COMPLEX #10 mL 01/09/23 clonidine HCl 0.1 mg tablet,extended release,12 hr (Kapvay) 0.2 mg (2 x 0.1 mg) PO QHS #60 tabs 03/19/23 hydrocodone 7.5 mg-acetaminophen 325 mg tablet 1 tab PO BID 03/19/23 lamotrigine 100 mg tablet 100 mg PO QDAY #30 tabs 03/19/23 lurasidone 40 mg tablet (Latuda) 40 mg PO QPM #30 tabs 03/19/23 oxybutynin chloride 15 mg tablet,extended release 24 hr 15 mg PO QDAY #30 tabs 04/04/23 oxybutynin chloride 5 mg tablet,extended release 24 hr 5 mg PO QDAY #30 tabs 04/04/23 medroxyprogesterone 150 mg/mL intramuscular syringe See Rx Instructions .Route .COMPLEX #1 mL 04/18/23 polyethylene glycol 3350 17 gram/dose oral powder (Miralax) 17 g PO QDAY #510 grams 04/19/23 insulin syringe-needle U-100 0.5 mL 30 gauge x 5/16" (TRUEplus Insulin) #100 ea 04/30/23 pen needle, diabetic 31 gauge x 5/16" (TRUEplus Pen Needle) See Rx Instructions miscellaneous .daily #90 ea 04/30/23 blood sugar diagnostic (Blood Glucose Test strips) #100 ea 05/16/23 dicyclomine 20 mg tablet 20 mg PO BID #20 tabs 05/19/23 insulin glargine 100 unit/mL (3 mL) subcutaneous pen See Rx Instructions .Route .COMPLEX #15 mL 05/21/23 albuterol sulfate 90 mcg/actuation aerosol inhaler (Ventolin HFA) 2 puff inhalation Q4-6H PRN shortness of breath #8.5 grams 06/12/23 oseltamivir 75 mg capsule (Tamiflu) 75 mg PO BID 5 days #10 caps 06/12/23 promethazine 25 mg tablet 25 mg PO Q6H PRN nausea and vomiting #20 tabs 06/12/23 Discharge Plan Discharge Discharge Orders: Discharge Patient (ONCE); Ordered 06/13/23 Ordered By: AUGUST POSADA Prescriptions: No Action (DME) blood-glucose meter 1 EACH misc 1 ea MC DAILY Qty: 1 lancets [TRUEplus Lancets] 33 gauge misc See Rx Instructions .ROUTE .COMPLEX Qty: 100 1RF Hold Instructions: MD Cabrera Dose Instruction: DIRECTED THREE TIMES DAILY NEEDED Rx Instructions: DIRECTED THREE TIMES DAILY NEEDED (DME) lancets [OneTouch Delica Plus Lancet] 33 gauge misc See Rx Instructions .ROUTE Qty: 100 0RF Hold Instructions: MD Cabrera Rx Instructions: Used to test blood sugar, TID PRN pravastatin 10 mg tablet 10 mg PO QDAY Qty: 90 1RF Humulin R Regular U-100 Insuln 100 unit/mL solution See Rx Instructions .ROUTE .COMPLEX Qty: 10 2RF Dose Instruction: INJECT 8 UNITS UNDER THE SKIN THREE TIMES DAILY WITH MEALS. ONLY TAKE IF EAT FULL MEAL Rx Instructions: INJECT 8 UNITS UNDER THE SKIN THREE TIMES DAILY WITH MEALS. ONLY TAKE IF EAT FULL MEAL medroxyprogesterone 150 mg/mL syringe See Rx Instructions .ROUTE .COMPLEX Qty: 1 0RF Dose Instruction: ADMINISTER 1 ML IN THE MUSCLE EVERY 3 MONTHS Rx Instructions: ADMINISTER 1 ML IN THE MUSCLE EVERY 3 MONTHS (DME) insulin syringe-needle U-100 [TRUEplus Insulin] 0.5 mL 30 gauge x 5/16" syringe See Rx Instructions .ROUTE .COMPLEX Qty: 100 1RF Dose Instruction: USE THREE TIMES DAILY AND DIRECTED Rx Instructions: USE THREE TIMES DAILY AND DIRECTED pen needle, diabetic [TRUEplus Pen Needle] 31 gauge x 5/16" needle See Rx Instructions miscellaneous .daily Qty: 90 5RF Dose Instruction: USE THREE TIMES DAILY DIRECTED Rx Instructions: as directed DAILY; to use for basaglar insulin daily (DME) Blood Glucose Test Strip See Rx Instructions .ROUTE .MEDSUPPLY Qty: 100 3RF Rx Instructions: accucheck three times daily & as needed insulin glargine 100 unit/mL (3 mL) insulin pen See Rx Instructions .ROUTE .COMPLEX Qty: 15 0RF Dose Instruction: ADMINISTER 30 UNITS UNDER THE SKIN DAILY Rx Instructions: ADMINISTER 30 UNITS UNDER THE SKIN DAILY dicyclomine 20 mg tablet 20 mg PO BID Qty: 20 0RF levothyroxine 100 mcg tablet See Rx Instructions .ROUTE .COMPLEX Qty: 90 1RF Dose Instruction: TAKE 1 TABLET BY MOUTH DAILY Rx Instructions: TAKE 1 TABLET BY MOUTH DAILY oxybutynin chloride 15 mg tablet extended release 24hr 15 mg PO QDAY Qty: 30 2RF Rx Instructions: take alongside the 5 mg tablet to make 20 mg daily oxybutynin chloride 5 mg tablet extended release 24hr 5 mg PO QDAY Qty: 30 2RF Rx Instructions: take alongside the 15 mg tablet to make 20 mg daily hydrocodone-acetaminophen 7.5-325 mg tablet 1 tab PO BID clonidine HCl [Kapvay] 0.1 mg tablet extended release 12 hr 0.2 mg PO QHS Qty: 60 4RF lurasidone [Latuda] 40 mg tablet 40 mg PO QPM Qty: 30 4RF Rx Instructions: must administer with food (at least 350 calories) lamotrigine 100 mg tablet 100 mg PO QDAY Qty: 30 4RF polyethylene glycol 3350 [Miralax] 17 gram/dose powder 17 g PO QDAY Qty: 510 2RF oseltamivir [Tamiflu] 75 mg capsule 75 mg PO BID 5 Days Qty: 10 0RF Patient Comments: PT STATES SHE DOES NOT KNOW IF SHE IS TAKING THIS MEDICATION promethazine 25 mg tablet 25 mg PO Q6H PRN (Reason: nausea and vomiting) Qty: 20 0RF albuterol sulfate [Ventolin HFA] 90 mcg/actuation HFA aerosol inhaler 2 puff IH Q4-6H PRN (Reason: shortness of breath) Qty: 8.5 2RF Did you review [place] [employer] for ALL controlled substances?: No Discussed opioids are addictive and Narcan is available by prescription or from pharmacy.: No Condition: Fair
[2023-06-13] MEDS: HEPARIN IVP ONE (18:36)
== END 2023-06-13 18:48 | disposition short-term general hospital (02) | DRG 639 ==
LOC: ED 06:37 → SCU 08:43
PROVIDERS: ADMIT Hospitalist; ATTEND Nurse Practitioner Family
DX: Z79.4 Long term (current) use of insulin; R79.89 Other specified abnormal findings of blood chemistry; E03.9 Hypothyroidism, unspecified; R07.9 Chest pain, unspecified; J10.1 Influenza due to other identified influenza virus with other respiratory manifestations; E10.10 Type 1 diabetes mellitus with ketoacidosis without coma; E87.5 Hyperkalemia; R00.0 Tachycardia, unspecified; E10.65 Type 1 diabetes mellitus with hyperglycemia; R50.9 Fever, unspecified; R11.2 Nausea with vomiting, unspecified; F15.21 Other stimulant dependence, in remission